=== PATIENT | male | born 1965 | race Caucasian/White ===

== ENCOUNTER 2021-04-21 20:00 | Outpatient (CLI) | payer MEDICARE, SELFPAY | END 2021-04-21 20:01 | disposition home or self-care (01) | LOC: SLEEP 04-22 08:40 | PROVIDERS: Family Provider Internal Medicine; Visit Provider Nurse Practitioner Family | DX: G47.33 Obstructive sleep apnea (adult) (pediatric) (principal) | CPT/HCPCS: 95810 ==

== ENCOUNTER 2022-11-08 06:00 | Outpatient (RCR) | payer MEDICARE, SELFPAY | END 2022-11-23 23:59 | disposition home or self-care (01) | LOC: SPT 06:00 | PROVIDERS: Visit Provider Internal Medicine | DX: E66.9 Obesity, unspecified (principal); M54.50 Low back pain, unspecified | CPT/HCPCS: 97113; 97162 ==

== ENCOUNTER 2022-11-24 06:00 | Outpatient (RCR) | payer MEDICARE, SELFPAY | END 2022-12-24 23:59 | disposition home or self-care (01) | LOC: SPT 06:00 | PROVIDERS: Visit Provider Internal Medicine | DX: M54.50 Low back pain, unspecified (principal); E66.9 Obesity, unspecified; J44.9 Chronic obstructive pulmonary disease, unspecified | CPT/HCPCS: 97113 ==

== ENCOUNTER 2022-12-25 01:00 | Outpatient (RCR) | payer MEDICARE, SELFPAY | END 2023-01-23 23:59 | disposition home or self-care (01) | LOC: SPT 01:00 | PROVIDERS: PCP Internal Medicine; Visit Provider Internal Medicine | DX: E66.9 Obesity, unspecified (principal); J44.9 Chronic obstructive pulmonary disease, unspecified; M54.50 Low back pain, unspecified | CPT/HCPCS: 97113 ==

== ENCOUNTER 2022-12-28 09:23 | Outpatient (CLI) | payer MEDICARE, SELFPAY ==
[2022-12-28 10:05] VITALS: PULSE 95; RESP 18; O2SAT 93
[2022-12-28] MEDS: albuterol 2.5 mg/3 mL Neb INHALATION (10:05)
[2022-12-28 10:10] VITALS: PULSE 89
== END 2022-12-28 09:24 | disposition home or self-care (01) ==
PROVIDERS: PCP Internal Medicine; Visit Provider Internal Medicine
DX: J44.9 Chronic obstructive pulmonary disease, unspecified (principal)
CPT/HCPCS: 94060; 94726; 94729; J7613

== ENCOUNTER 2024-06-05 18:04 | Inpatient (IN) | payer MEDICARE, SELFPAY ==
[2024-06-05] VITALS (12 sets, daily range): BP systolic 105–146; BP diastolic 65–87; PULSE 88–101; RESP 15–22; TEMP 36.5–36.7; O2SAT 88–98; BMI 47.9; BMI 48.2
--- NOTE | 2024-06-05 18:25 | ECG_ITS ---
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 Measurements Intervals [place] Rate: 99 P: 67 TN: 127 QRS: 92 QRSD: 142 T: -40 QT: 362 QTc: 466 Interpretive Statements SINUS RHYTHM RIGHT BUNDLE BRANCH BLOCK [120+ ms QRS DURATION, UPRIGHT V1, 40+ ms S IN I/aVL/V4/V5/V6] MODERATE T-WAVE ABNORMALITY, CONSIDER LATERAL ISCHEMIA [-0.1+ mV T-WAVE IN I/aVL/V5/V6].MODERATE T-WAVE ABNORMALITY, CONSIDER INFERIOR ISCHEMIA [-0.1+ mV T-WAVE IN II/aVF] Compared to ECG 04/27/2015 21:15:17 Right bundle-branch block now present T-wave abnormality now present.Possible ischemia now present Myocardial infarct finding no longer present Electronically Signed On 06-05-2024 21:40:12 CDT by Dell Patel M.D. [id number]
--- NOTE | 2024-06-05 18:27 | XRR_ITS ---
PROCEDURE INFORMATION: Exam: XR Chest Exam date and time: 06/05/2024 6:38 PM Age: 59 years old Clinical indication: Other: Weakness TECHNIQUE: Imaging protocol: Radiologic exam of the chest. Views: 1 view. COMPARISON: 1. CT chest w con* [id number] 05/02/2019 08:32 2. CR XR chest 2V* [id number] 11/01/2018 10:[address] chest wo con [id number] 11/07/2018 1:54 PM FINDINGS: Lungs: Left basilar linear atelectatic changes. No focal pulmonary consolidation. Multiple small noncalcified nodules scattered throughout both lungs similar to the comparison examinations. Pleural spaces: No pleural effusion or pneumothorax. Heart/Mediastinum: Normal in size. Diaphragm: Chronic asymmetric elevation of the left hemidiaphragm. Bones/joints: No acute fracture is identified. XR/XR chest 1V portable [id number] IMPRESSION: 1. Atelectatic changes at the left lung base. No focal pulmonary consolidation. 2. Multiple small noncalcified nodules throughout both lung bales, no significantly changed from comparison. CT scan of the chest may be helpful for further characterization if clinically indicated.
[2024-06-05 18:48] LABS: ABG PH Result 7.39 (7.35-7.45); Arterial Blood Gas Hematocrit 38.6 % (42-52); Base Excess ABG 20.4 mmol/L (-2.0-2.0); Blood Gas Allen Test Pos; Blood Gas Operator Identificat CAK; Blood Gas Sample Site Radial, left; Blood Gas Sample Type Arterial; Carboxyhemoglobin 1.4 %THgb (0.4-20.1); HCO3 ABG 49.8 mmol/L (22-26); HGB O2 Sat 92.5 % (95-100); Ionized Calcium Level - ABG 1.2 mmol/L (1.1-1.4); Methemoglobin 1.1 % (0.4-1.5); Oxygen Device NC; Oxygen Saturation ABG 94.9; PO2 ABG 70.3 mmHg (80.0-100.0); Potassium Level - ABG 4.3 mmol/L (3.5-5.0); Total Hemoglobin 12.6 g/dL (14-18)
[2024-06-05 18:49] LABS: ABG PCO2 82.4 mmHg (35-45)
--- NOTE | 2024-06-05 18:54 | ED_ITS ---
HPI - SOB/Dyspnea 2 General: Chief Complaint: Shortness of Breath/Dyspnea Stated Complaint: weakness Time Seen by Provider: 06/05/24 18:33 Source: patient Mode of arrival: ambulatory Limitations: no limitations History of Present Illness: HPI Narrative: 59-year-old male has a history of COPD s tates he was admitted to [facility] over 1 week ago for pneumonia. States he was released on Tuesday states initially it improved over the last 2 days had much more increase shortness of breath. He states he is continue to have a cough as well he is finished his antibiotics and steroids and sent home on. Patient here in triage is requiring 6 L of oxygen he is typically on 3 at home. He denies any chest pain. Associated symptoms: Deny abdominal pain, chest pain, fever(s), nausea or vomiting Related Data Allergies Allergy/AdvReac Type Severity Reaction Status Date / Time No Known Allergies Allergy Verified 06/05/24 18:32 Review of Systems 2 Const: Denies: fever(s), chills, body aches or change in appetite ENMT: Denies: throat pain or dental pain Card: Denies: chest pain Resp: Reports: dyspnea and non-productive cough GI: Denies: abdominal pain, nausea, vomiting or diarrhea Musc: Denies: neck pain or back pain Skin/Breast: Denies: rash Neuro: Denies: headache(s) Physical Exam 2 Const: COMMON NORMALS: patient oriented x3 GENERAL APPEARANCE: ill appearing HENMT: COMMON NORMALS: normocephalic and atraumatic HEAD & SCALP: n ormocephalic and atraumatic Neck/C-Spine: COMMON NORMALS: full ROM and supple Chest: COMMONS NORMALS: normal inspection of the chest Resp: COMMON NORMALS: No retractions EFFORT & INSPECTION: Yes respiratory distress AUSCULTATION: diminished lung sounds Cardio: COMMON NORMALS: regular rhythm and No murmurs present (Cardio) R ATE: tachycardic RHYTHM: regular rhythm GI: COMMON NORMALS: Normal to inspection, nondistended, normoactive bowel sounds present, Soft to palpation, non-tender and no masses PALPATION: Yes Soft to palpation Extremity: COMMON NORMALS: normal to inspection and full ROM Neuro: COMMON NORMALS: patient oriented x3, moves all extremities and no focal motor deficits Psych: COMMON NORMALS: mental status grossly normal, Normal thought process present and cooperative THOUGHT PROCESS: Normal thought process present Skin: COMMON NORMALS: no rashes or lesions noted and no wounds GENERAL SKIN EXAM: no rashes or lesions noted Course 2 Vital Signs: Vital signs: Vital Signs Temperature 98.0 F 06/05/24 18:24 Pulse Rate 97 06/05/24 20:52 Respiratory Rate 20 H 06/05/24 20:52 Blood Pressure 122/87 06/05/24 20:52 Pulse Oximetry 98 06/05/24 20:52 Oxygen Delivery Me thod BiPAP 06/05/24 20:52 Oxygen Flow Rate 3 06/05/24 19:15 Fraction of Inspir ed Oxygen 45 06/05/24 20:05 MDM - SOB/Dyspnea Medical Decision Making Patient presents for shortness of breath white count here is normal notes any large pneumonia on x-ray did give him a dose of antibiotics does have a long history of COPD he is hypercapnic here did place him on BiPAP his CO2 is improving. I did speak to the hospitalist will admit at this time. Lab Data 06/05/24 19:25 06/05/24 19:25 Labs/Radiology: Radiology Impressions Chest X-Ray 06/05/24 18:27 IMPRESSION: 1. Atelectatic changes at the left lung base. No focal pulmonary consolidation. 2. Multiple small noncalcified nodules throughout both lung bales, no significantly changed from comparison. CT scan of the chest may be helpful for further characterization if clinically indicated. Laboratory Results WBC 10.82 10^3/uL (3.29-11.43) 06/05/24 19: RBC 4.53 10^6/uL (3.85-5.65) 06/05/24 19:25 Hgb 13.00 g/dL (11.27-16.99) 06/05/24 19:25 Hct 43.9 % (37-53) 06/05/24 19: MCV 96.9 fl (82-101) 06/05/24 19: MCH 28.7 pg (27-33) 06/05/24 19: MCHC 29.6 g/dL (30-55) L 06/05/24 19:25 RDW 12.6 % (12.1-15.1) 06/05/24 19:25 Plt Count 264 10^3/cmm (157-399) 06/05/24 19:25 MPV 9.4 fL (7.4-10.4) 06/05/24 19:25 Neut % (Auto) 71.9 % 06/05/24 19:25 Lymph % (Auto) 15.5 % 06/05/24 19:25 Holt % (Auto) 7.2 % 06/05/24 19:25 Eos % (Auto) 4.4 % 06/05/24 19:25 Baso % (Auto) 0.4 % 06/05/24 19:25 Neut # (Auto) 7.77 10^3/uL (1.8-7.7) H 06/05/24 19:25 Lymph # (Auto) 1.7 10^3/uL (0.8-4.8) 06/05/24 19:25 Holt # (Auto) 0.8 10^3/uL (0.2-0.9) 06/05/24 19:25 Eos # (Auto) 0.5 10^3/uL (0.0-0.8) 06/05/24 19:25 Baso # (Auto) 0.0 10^3/uL (0.0-0.1) 06/05/24 19: Nucleated RBC % (auto) 0 % 06/05/24: Nucleated RBCs # 0.0 /100WBC 06/05/24 19:25 PT 13.50 SECONDS (12.1-14.9) 06/05/24 19: INR 1.00 (0.8-1.2) 06/05/24 19:25 Specimen Type Arterial 06/05/24 20:45 Sample Site Radial, right 06/05/24 20:45 ABG pH 7.44 (7.35-7.45) 06/05/24 20:45 ABG pCO2 70.6 mmHg (35-45) H* 06/05/24 20:45 ABG pO2 116.0 mmHg (80.0-100.0) H 06/05/24 20:45 ABG PO2/FiO2 Ratio 257 06/05/24 20:45 ABG HCO3 47.7 mmol/L (22-26) H 06/05/24 20:45 ABG O2 Saturation 94.9 06/05/24 18:37 ABG Base Excess 19.7 mmol/L (-2.0-2.0) H 06/05/24 20:45 Dae Test Pos 06/05/24 20:45 A-a O2 Gradient Not Reportable 06/05/24 18:37 Hematocrit 38.2 % (42-52) L 06/05/24 20:45 Hgb O2 Saturation 92.5 % (95-100) L 06/05/24 18:37 Carboxyhemoglobin 1.4 %THgb (0.4-20.1) 06/05/24 18:37 Methemoglobin 1.1 % (0.4-1.5) 06/05/24 18:37 Total Hemoglobin 12.6 g/dL (14-18) L 06/05/24 18:37 Sodium 137.0 mmol/L (131-143) 06/05/24 18:37 Potassium 4.3 mmol/L (3.5-5.0) 06/05/24 18:37 Glucose 137.0 mg/dL (70-115) H 06/05/24 18:37 Ionized Calcium 1.2 mmol/L (1.1-1.4) 06/05/24 18:37 O2 Delivery Device Bipap 06/05/24 20:45 O2 Liters/Min 6.0 % 06/05/24 18:37 FiO2 45.0 % 06/05/24 20:45 Swatch Maker ID [email or web address] 06/05/24 20:45 Sodium 138 mmol/L (136-145) 06/05/24 19:25 Potassium 4.9 mmol/L (3.5-5.1) 06/05/24 19:25 Chloride 88 mmol/L (98-107) L 06/05/24 19:25 Carbon Dioxide 45 mmol/L (22-29) H* 06/05/24 19:25 Anion Gap 9.9 (5-19) 06/05/24 19:25 Creatinine 0.5 mg/dL (0.7-1.2) L 06/05/24 19:25 GFR Calculation 169.6 mL/min (90-130) H 06/05/24 19:25 Glucose 134 mg/dL (65-115) H 06/05/24 19:25 Calcium 9.0 mg/dL (8.5-10.5) 06/05/24 19:25 Magnesium 2.2 mg/dL (1.7-2.3) 06/05/24 19:25 Total Bilirubin 0.4 mg/dL (0.15-1.2) 06/05/24 19:25 AST 22 U/L (0-40) 06/05/24 19:25 ALT 56 U/L (0-41) H 06/05/24 19:25 Alkaline Phosphatase 62 U/L (40-130) 06/05/24 19:25 Troponin T Baseline 46 ng/L (0-15) H 06/05/24 19:25 NT-Pro-B Natriuret Pep 247 pg/mL (0-125) H 06/05/24 19:25 Total Protein 6.8 g/dL (6.6-8.7) 06/05/24 19: Albumin 4.0 g/dL (3.5-5.2) 06/05/24 19:25 Globulin 2.8 g/dL (1.3-4.6) 06/05/24 19: TSH 3.52 uIU/mL (0.27-4.20) 06/05/24 19:25 Urine Color Yellow (Yellow) 06/05/24 19:35 Urine Appearance Clear (CLEAR) 06/05/24 19:35 Urine pH 8.5 (5-7) A 06/05/24 19:35 Ur Specific [place] 1.012 (1.005-1.030) 06/05/24 19:35 Urine Protein Negative (Negative) 06/05/24 19:35 Urine Glucose (UA) Negative (Normal) 06/05/24 19:35 Urine Ketones Negative (Negative) 06/05/24 19:35 Urine Blood Negative (Negative) 06/05/24 19:35 Urine Nitrate Negative (Negative) 06/05/24 19:35 Urine Bilirubin Negative (Negative) 06/05/24 19:35 Urine Urobilinogen 0.2 mg/dL (Negative) 06/05/24 19:35 Ur Leukocyte Esterase Negative (Negative) 06/05/24 19:35 Urine RBC 0-2 /hpf (0-2) 06/05/24 19:35 Urine WBC 0-5 /hpf (0-5) 06/05/24 19:35 Ur Squamous Epith Cells 0-5 /hpf (0-5) 06/05/24 19:35 Amorphous Sediment Not Reportable 06/05/24 19:35 Urine Bacteria None seen /hpf (NONE) 06/05/24 19:35 Hyaline Casts 0-4 /lpf H 06/05/24 19:35 All radiology interpretation(s) finalized by discharge Discharge Plan Discharge Patient Disposition: Admitted As Inpatient Clinical Impression: Acute exacerbation of chronic obstructive airways disease, Acute and chronic respiratory failure with hypercapnia Condition: Stable Referrals: Shaniqua Carey MD [Primary Care Provider] - Coding Level of Care Code ED Business Continuity Director for [facility]
[2024-06-05] MEDS: albuterol 2.5 mg/3 mL Neb INHALATION (19:15)
[2024-06-05 19:49] LABS: Basophils % 0.4 %; Eosinophils # 0.5 10^3/uL (0.0-0.8); Eosinophils % 4.4 %; Hematocrit 43.9 % (37-53); Lymphocytes # 1.7 10^3/uL (0.8-4.8); Lymphocytes % 15.5 %; Mean Corpuscular HGB Conc 29.6 g/dL (30-55); Mean Corpuscular Hemoglobin 28.7 pg (27-33); Mean Corpuscular Volume 96.9 fl (82-101); Mean Platelet Volume 9.4 fL (7.4-10.4); Monocytes # 0.8 10^3/uL (0.2-0.9); Monocytes % 7.2 %; Neutrophils # 7.77 10^3/uL (1.8-7.7); Neutrophils % 71.9 %; Nucleated Red Blood Cells % 0 %; Platelet Count 264 10^3/cmm (157-399); Red Blood Count 4.53 10^6/uL (3.85-5.65); Red Cell Distribution Width 12.6 % (12.1-15.1); White Blood Count 10.82 10^3/uL (3.29-11.43)
[2024-06-05] MEDS: levofloxacin-dextrose 5 % 750 MG/150 ML PREMIX 100 MG IV (20:03)
[2024-06-05 20:09] LABS: Troponin(5th) Baseline 46 ng/L (0-15)
[2024-06-05 20:14] LABS: Bilirubin Urine Negative (Negative); Blood Urine Negative (Negative); Glucose Urine UA Negative (Normal); Ketones Urine Negative (Negative); Leukocyte Esterase Urine Negative (Negative); Nitrate Urine Negative (Negative); Protein Urine Negative (Negative); Specific Gravity, Urine 1.012 (1.005-1.030); Urine Appearance Clear (CLEAR); Urine Color Yellow (Yellow); Urobilinogen Urine 0.2 mg/dL (Negative); pH Urine 8.5 (5-7)
[2024-06-05 20:19] LABS: Add Urine Microscopic? YES; Bacteria Urine None Seen /hpf; Hyaline Casts Urine 0-4 /lpf; RBC Urine 0-2 /hpf (0-2); Squamous Epithelial Cell Urine 0-5 /hpf (0-5); WBC Urine 0-5 /hpf (0-5)
--- NOTE | 2024-06-05 20:33 | ECG_ITS ---
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 Measurements Intervals [place] Rate: 95 P: 53 [place]: 136 QRS: 89 QRSD: 139 T: -19 QT: 396 QTc: 498 Interpretive Statements SINUS RHYTHM RIGHT BUNDLE BRANCH BLOCK [120+ ms QRS DURATION, UPRIGHT V1, 40+ ms S IN I/aVL/V4/V5/V6] MODERATE T-WAVE ABNORMALITY, CONSIDER LATERAL ISCHEMIA [-0.1+ mV T-WAVE IN I/aVL/V5/V6] MODERATE T-WAVE ABNORMALITY, CONSIDER INFERIOR ISCHEMIA [-0.1+ mV T-WAVE IN II/aVF] Compared to ECG 06/05/2024 18:25:09 No significant changes Electronically Signed On 06-05-2024 21:57:44 CDT by Dell Patel M.D. [id number]
[2024-06-05 20:35] LABS: Alanine Aminotransferase 56 U/L (0-41); Alkaline Phosphatase 62 U/L (40-130); Anion Gap 9.9 (5-19); Aspartate Amino Transferase 22 U/L (0-40); Chloride 88 mmol/L (98-107); Creatinine Clr Calc Pharmacy 239.0987; Globulin 2.8 g/dL (1.3-4.6); Glomerular Filtration Rate 169.6 mL/min (90-130); Glucose 134 mg/dL (65-115); Magnesium 2.2 mg/dL (1.7-2.3); NT Pro B Type Natriuretic Pept 247 pg/mL (0-125); Potassium 4.9 mmol/L (3.5-5.1); Sodium 138 mmol/L (136-145); Thyroid Stimulating Hormone 3.52 uIU/mL (0.27-4.20); Total Bilirubin 0.4 mg/dL (0.15-1.2); Total Protein 6.8 g/dL (6.6-8.7)
[2024-06-05 20:50] LABS: Carbon Dioxide 45 mmol/L (22-29)
[2024-06-05 20:56] LABS: ABG PCO2 70.6 mmHg (35-45); ABG PH Result 7.44 (7.35-7.45); Arterial Blood Gas Hematocrit 38.2 % (42-52); Base Excess ABG 19.7 mmol/L (-2.0-2.0); Blood Gas Allen Test Pos; Blood Gas Sample Site Radial, right; Blood Gas Sample Type Arterial; HCO3 ABG 47.7 mmol/L (22-26); Oxygen Device BIPAP; PO2 FiO2 Ratio Arterial Blood 257
[2024-06-05 21:06] LABS: Blood Urea Nitrogen 11 mg/dL (8-23); Osmolality Calculated 287 mOsm/kg (285-295)
[2024-06-05 21:13] LABS: Glucose Point of Care 257 mg/dL (70-110)
--- NOTE | 2024-06-05 21:21 | USCV_ITS ---
Walter Medina Age: 59 Gender: M : 1965 Exam Date: 06/05/2024 22:46 Ordering Phys: Hilton Ortiz MD Technologist: MARY KATE Exam Location: [facility] [place] Indication: SOB, history of asthma, COPD, recent pneumonia, morbid obesity, O2 dependent at 3L BP: 122 / 87 HR: 87 Rhythm: Sinus Technical Quality: Adequate with [employer] MEASUREMENTS (Male / Female) Normal Values 2D ECHO LV Diastolic Diameter PLAX 4.5 cm 4.2 - 5.9 / 3.9 - 5.3 cm IVS Diastolic Thickness 1.7 cm 0.6 - 1.0 / 0.6 - 0.9 cm IVS Systolic Thickness 2.4 cm LVPW Diastolic Thickness 1.4 cm 0.6 - 1.0 / 0.6 - 0.9 cm LVPW Systolic Thickness 1.6 cm LVOT Diameter 2.3 cm LV Ejection Fraction 2D Teich 66.7 % LV Ejection Fraction MOD 4C 68.6 % LV Ejection Fraction MOD 2C 56.2 % LV Ejection Fraction 2C AL 55.5 % LA Diameter 3.9 cm Aorta at Sinotubular Diameter 3.2 cm IVC Diameter 1.8 cm M-MODE LA Ao Ratio MM 1.2 AV Cusp Separation MM 2.1 cm DOPPLER AV Peak Velocity 156.3 cm/s LVOT Peak Velocity 76.0 cm/s AV Area Cont Eq vti 2.9 cm squared AV Area Cont Eq pk 2.0 cm squared MV Peak Velocity 92.0 cm/s MV Area PHT 10.6 cm squared Mitral E to A Ratio 1.1 TV Peak E Velocity 42.0 cm/s PV Peak Velocity 80.0 cm/s FINDINGS Left Ventricle Normal left ventricular size, systolic function and wall thickness, with no regional wall motion abnormalities. Left ventricular ejection fraction is estimated at 60 %. Mildly increased left ventricular filling pressure. Right Ventricle The right ventricle is normal in size and function. Right Atrium Moderately increased right atrial size. Left Atrium The left atrium is normal in size. Mitral Valve Structurally normal mitral valve without significant stenosis or prolapse. There is no mitral regurgitation. Aortic Valve Structurally normal aortic valve without significant sclerosis or stenosis. There is trace aortic regurgitation. Tricuspid Valve Structurally normal tricuspid valve without significant stenosis, trace regurgitation. Pulmonary artery systolic pressure is normal. Pulmonic Valve Mild pulmonary valve regurgitation. Pericardium Normal pericardium without effusion. Aorta Normal ascending aorta dimension. IVC The inferior vena cava appears normal. CONCLUSIONS Normal left ventricular size, systolic function and wall thickness, with no regional wall motion abnormalities. Left ventricular ejection fraction is estimated at 60 %. Mildly increased left ventricular filling pressure. Mild pulmonary valve regurgitation. There is no other significant valvular abnormality There is no pericardial effusion. Right atrial pressure is around 5 mm of mercury. Blanka Melton MD (Electronically Signed) Final Date: 06 June 2024 12:41 S
--- NOTE | 2024-06-05 21:22 | PM.HP ---
Providers/Chief Complaint Primary Care Provider: Shaniqua Carey MD Chief Complaint: weakness History of Present Illness Walter Medina is a 59 year old male with a past medical history of morbid obesity, COPD, previous smoker, chronically on 3 L, recently admitted at [facility] in [place] for acute hypoxic respiratory failure secondary pneumonia, has completed steroids and antibiotics who presents back to [facility] due to complaints of shortness of breath, fatigue, malaise, and a fall. Patient reports that he was hospitalized at [facility], for pneumonia, he overall clinically improved, he was discharged on antibiotics and steroids and inhaler therapy. He does tell me that he felt better at some point, but continued to have episodes of shortness of breath, fatigue, malaise, nonproductive cough, no fevers, no chills, no chest pain. He does tell me that he was short of breath today, and he had a mechanical fall, falling backwards, hitting his right shoulder, his left hand, denies any head trauma, no loss of consciousness Review of Systems Const: Reports: fatigue and malaise Card: Denies: chest pain Resp: Reports: dyspnea and non-productive cough Neuro: Denies: headache(s) or weakness in extremities Medications/Allergies Allergies Allergy/AdvReac Type Severity Reaction Status Date / Time No Known Allergies Allergy Verified 06/05/24 18:32 PFSH Acute PFSH: Medical History (Updated 06/05/24 @ 21:28 by Hilton Ortiz MD) History of type 2 diabetes mellitus History of morbid obesity History of COPD Surgical History (Updated 06/05/24 @ 21:26 by Hilton Ortiz MD) History of appendectomy Family History Mother Diabetes Social History (Updated 06/05/24 @ 21:27 by Hilton Ortiz MD) Smoking and tobacco/nicotine status: former use of tobacco/nicotine Alcohol intake: never Substance/Drug Use: never Vitals/I&O/Wt Last Vital Signs Temp 98.0 F 06/05/24 18:24 Pulse 97 06/05/24 20:52 Resp 20 H 06/05/24 20:52 BP 122/87 06/05/24 20:52 Pulse Ox 98 06/05/24 20:52 O2 Del Method BiPAP 06/05/24 20:52 O2 Flow Rate 3 06/05/24 19:15 FiO2 45 06/05/24 20:05 Weight last 48 hrs Weight 156.036 kg Physical Exam Const: COMMON NORMALS: no acute distress and patient oriented x3 HENMT: COMMON NORMALS: normocephalic HEAD & SCALP: normocephalic Eye: COMMON NORMALS: Equal, round and reactive pupils present and EOMs intact bilaterally Neck/C-Spine: COMMON NORMALS: no JVD Resp: COMMON NORMALS: normal respiratory effort, No retractions and No use of accessory muscles AUSCULTATION: wheezes Cardio: COMMON NORMALS: no JVD, regular rate, regular rhythm, S1 normal heart sound present and S2 normal heart sound present RATE: regular rate RHYTHM: regular rhythm HEART SOUNDS: S1 normal heart sound present and S2 normal heart sound present GI: COMMON NORMALS: Normal to inspection, nondistended, normoactive bowel sounds present, Soft to palpation and non-tender PALPATION: Yes Soft to palpation OTHER: Obese abdomen Extremity: COMMON NORMALS: no calf tenderness and no pedal edema Neuro: COMMON NORMALS: patient oriented x3, CN's II-XII intact bilaterally and moves all extremities Psych: COMMON NORMALS: mental status grossly normal Data 06/05/24 19:25 06/05/24 19:25 Micro: Microbiology 06/05/24 19:25 Blood Culture - Preliminary Blood SPECIMEN COLLECTED 06/05/24 19:18 Blood Culture - Preliminary Blood SPECIMEN COLLECTED A&P Assessment and plan (1) Acute respiratory failure with hypoxia and hypercapnia: (2) Fall: (3) Pneumonia: Plan Acute hypoxic hypercarbic respiratory failure -With history of sleep apnea, on CPAP -Morbid obesity -Recent hospitalization for pneumonia, COPD, discharged on 3 L, requiring up to 5 L, now on BiPAP ? Now with pneumonia, hypercarbic respiratory failure, hypoxia Plan -Respiratory viral panel -Sputum cultures -D-dimer -Pro-Rufus, CRP -Cardiac echo -Continue Levaquin -Solu-Medrol 125 mg once followed by Solu-Medrol 40 mg IV push every 8 hours ? Budesonide ? DuoNeb every 4 hours ? Continued BiPAP scheduled during the night, as needed during the day ? Have ordered an overnight pulse ox for tomorrow, to see if patient can qualify for BiPAP Pneumonia ? As above Fall ? CT of the head ? Right shoulder pain ? Left hand pain Type 2 diabetes mellitus, low-dose sliding scale Reviewed records from outside hospital, patient had enlarged mediastinal lymph nodes, enlarged subcarinal lymph nodes largest measuring 2 x 4.2 cm, right paratracheal nodes measuring 1.5 cm, this will need to be followed up by pulmonary as outpatient He was also found to have 7 mm left upper lobe nodule, multiple calcified and noncalcified left lower lobe pulmonary nodules measuring up to 9 mm, multiple 5 mm right lower lobe and middle lobe pulmonary nodules She will need to follow-up with pulmonary as outpatient Full code ? Lovenox for DVT prophylaxis Attestations Medical Necessity Statement*: Patient requires hospitalization, inpatient, greater than 2 midnights for acute hypoxic hypercarbic respiratory failure Diagnoses Acute respiratory failure with hypoxia and hypercapnia J96.01; J96.02 Fall W19.XXXA Pneumonia J18.9
--- NOTE | 2024-06-05 21:25 | XRR_ITS ---
PROCEDURE INFORMATION: Exam: XR Left Hand Exam date and time: 06/05/2024 9:38 PM Age: 59 years old Clinical indication: Injury or trauma; Fall; Blunt trauma (contusions or hematomas); Hand; Left TECHNIQUE: Imaging protocol: Radiologic exam of the left hand. Views: 3 or more views. COMPARISON: No relevant prior studies available. FINDINGS: Bones/joints: The alignment of the joints is anatomic and the joint spaces are maintained. There is no evidence of acute fracture. Soft tissues: There is soft tissue swelling. No radiopaque foreign body is identified. XR/XR hand LT 2V [id number] IMPRESSION: 1. Left hand soft tissue swelling. 2. No acute fracture or dislocation.
--- NOTE | 2024-06-05 21:25 | CTR_ITS ---
PROCEDURE INFORMATION: Exam: CT Head Without Contrast Exam date and time: 06/05/2024 9:43 PM Age: 59 years old Clinical indication: Injury or trauma; Other: Fall, weakness, SOB TECHNIQUE: Imaging protocol: Computed tomography of the head without contrast. Radiation optimization: All CT scans at this facility use at least one of these dose optimization techniques: automated exposure control; mA and/or kV adjustment per patient size (includes targeted exams where dose is matched to clinical indication); or iterative reconstruction. COMPARISON: No relevant prior studies available. RADIATION DOSE METRICS: Total DLP (mGy-cm): 1110 FINDINGS: Brain: There is no evidence of intracranial hemorrhage. No mass effect or midline shift. No territorial edema. There are moderate confluent periventricular hypodensities consistent with chronic microischemic changes of white matter. Cerebral ventricles: The ventricles and sulci are appropriate for the patient's age. Paranasal sinuses: There are no air-fluid levels. Mastoid air cells: The visualized mastoid air cells are well aerated. Auditory system: In the left external auditory canal, there is a 10 x 4 mm soft tissue density. There is debris/cerumen in the right external auditory canal. Bones: Unremarkable. No acute fracture. Soft tissues: Unremarkable. CT/CT head wo con* [id number] IMPRESSION: 1. No acute intracranial findings. 2. Moderate cerebral small-vessel disease. 3. A 10 x 4 mm soft tissue density in the left external auditory canal. Consider cerumen, foreign body. Neoplasm may be considered less likely.
--- NOTE | 2024-06-05 21:25 | XRR_ITS ---
PROCEDURE INFORMATION: Exam: XR Right Shoulder Exam date and time: 06/05/2024 9:40 PM Age: 59 years old Clinical indication: Injury or trauma; Fall; Blunt trauma (contusions or hematomas); Shoulder; Right TECHNIQUE: Imaging protocol: Radiologic exam of the right shoulder. Views: 2 or more views. COMPARISON: CR (CHEST, ) 07/04/2024 18:38 FINDINGS: Bones/joints: There is no evidence of fracture or dislocation. The acromioclavicular joint is normal. The subacromial joint space is well-preserved. The glenohumeral joint is normal. No joint effusion is present. Soft tissues: There are no radiopaque foreign bodies in the visualized soft tissues. There are no soft tissue calcifications. XR/XR shoulder RT min 2V* [id number] IMPRESSION: Unremarkable radiographic appearance of the shoulder.
[2024-06-05 21:53] LABS: D Dimer 0.47 ug/mLFEU (0-0.59)
[2024-06-05 21:57] LABS: Troponin 5 2HR 48.55 ng/L (0-15); Troponin 5 2HR Delta 2.55 ABS# (0-10)
[2024-06-05 21:58] LABS: C Reactive Protein 5.4 mg/L (0.0-4.9)
[2024-06-05 22:05] LABS: Procalcitonin 0.07 ng/mL (0-0.5)
[2024-06-05] MEDS: enoxaparin 40 mg/0.4 mL Syringe SUBCUT (22:24)
[2024-06-05] MEDS: pantoprazole 40 mg SDV IVP (22:25)
[2024-06-05] MEDS: methylPREDNISolone sod succ 125 mg/2 mL INJ IVP (22:25)
[2024-06-05 23:17] LABS: Estmated Average Glucose 146; Hemoglobin A1C 6.7 % (4.0-6.0)
[2024-06-05 23:26] LABS: Covid PCR NEGATIVE (Negative); Influenza A NEGATIVE (Negative); Influenza B NEGATIVE (Negative); Respiratory Syncytial Virus Ce NEGATIVE (Negative)
[2024-06-05] MEDS: benzonatate 100 mg Capsule PO (23:35)
[2024-06-06] VITALS (19 sets, daily range): BP systolic 109–144; BP diastolic 64–82; PULSE 81–115; RESP 16–26; TEMP 36.3–36.8; O2SAT 90–95
--- NOTE | 2024-06-06 00:33 | ECG_ITS ---
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1965 Requested By: Lili Garcia Order Number: [id number] Melody MD: FAWN TUTTLE Measurements Intervals [place] Rate: 101 P: 41 IA: 108 QRS: 101 QRSD: 145 T: -7 QT: 366 QTc: 475 Interpretive Statements SINUS TACHYCARDIA WITH SHORT IA INTERVAL RIGHT AXIS DEVIATION [QRS AXIS > 100] RIGHT BUNDLE BRANCH BLOCK [120+ ms QRS DURATION, UPRIGHT V1, 40+ ms S IN I/aVL/V4/V5/V6] Compared to ECG 06/05/2024 20:33:12 Short IA interval now present Right-axis deviation now present Sinus rhythm no longer present T-wave abnormality no longer present Possible ischemia no longer present Electronically Signed On 06-07-2024 12:02:34 CDT by FAWN TUTTLE [id number]
[2024-06-06 00:46] LABS: Troponin 5 6HR 50.41 ng/L (0-15); Troponin 5 6HR Delta 4.41 ng/L (0-12)
[2024-06-06 05:07] LABS: Basophils % 0.2 %; Eosinophils % 0.1 %; Hematocrit 41.4 % (37-53); Lymphocytes # 0.6 10^3/uL (0.8-4.8); Lymphocytes % 5.9 %; Mean Corpuscular Hemoglobin 28.3 pg (27-33); Mean Corpuscular Volume 94.5 fl (82-101); Mean Platelet Volume 9.3 fL (7.4-10.4); Monocytes # 0.1 10^3/uL (0.2-0.9); Monocytes % 0.7 %; Neutrophils # 10.06 10^3/uL (1.8-7.7); Neutrophils % 92.5 %; Nucleated Red Blood Cells % 0 %; Platelet Count 246 10^3/cmm (157-399); Red Blood Count 4.38 10^6/uL (3.85-5.65); Red Cell Distribution Width 12.4 % (12.1-15.1); White Blood Count 10.88 10^3/uL (3.29-11.43)
[2024-06-06 05:32] LABS: Anion Gap 9.7 (5-19); Blood Urea Nitrogen 12 mg/dL (8-23); Calcium 8.8 mg/dL (8.5-10.5); Chloride 89 mmol/L (98-107); Creatinine Clr Calc Pharmacy 198.5096; Glomerular Filtration Rate 137.4 mL/min (90-130); Glucose 332 mg/dL (65-115); Osmolality Calculated 293 mOsm/kg (285-295); Potassium 4.7 mmol/L (3.5-5.1); Sodium 135 mmol/L (136-145)
[2024-06-06 05:55] LABS: Carbon Dioxide 41 mmol/L (22-29)
[2024-06-06 06:21] LABS: Glucose Point of Care 268 mg/dL (70-110)
[2024-06-06] MEDS: perflutren protein-a microsphr 0.22 mg/mL SDV 3 mL IV (08:28)
[2024-06-06] MEDS: budesonide 0.5 mg/2 mL Neb INHALATION ×2 (08:28→19:58)
[2024-06-06] MEDS: ipratropium-albuterol 3 mL Neb INHALATION ×4 (08:28→19:58)
[2024-06-06] MEDS: insulin lispro 100 unit/1 mL SUBCUT ×3 (08:40→17:10)
[2024-06-06] MEDS: methylPREDNISolone sod succ 40 mg/mL INJ IVP ×2 (08:41→17:10)
--- NOTE | 2024-06-06 08:50 | PC.CHAP ---
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 head still operator visit [] Patient/Family/Request visit [] Outpatient visit [] Follow-up visit [] Physician referral [] Code/Alert [x] Routine visit [] Staff referral [] Actively dying [] Patient sleeping [] Family support [] [] Out of room [] Palliative care [] [] Receiving care in room [] Pre-surgical visit [] Trauma [] Long length of stay [] ICU visit [] Other: Relational/Emotional Strength [x] Patient feels connected with others/family/visitors/staff [] Distress [] Loneliness/isolation [] Abandonment Spirituality of Patient [x] Person of [place] [x] Attends [employer] of their [place] [x] Believes in Prayer [x] Reads Bible or Christian materials [] There are Spiritual issues to be addressed Grocery Buyer Interventions [x] Prayer [x] Active listening [] Non-anxious presence [x] Spiritual/emotional support [] Crisis/trauma care [] Spiritual counseling [] Bereavement support [] Provided bereavement packet [] Provided Bible/devotional materials [] Provided toy/stuffed animal, coloring book to patient or family member [] Provided Communion [] Anointing/[place] [] Salvation [x] Completed spiritual assessment [] Other: Impact on Illness or Injury [] Angry [] Fearful [] Anxious [] Often cries [] Exhaustion [] Unable to work [] Unable to attend nondenominational [] Unable to walk/stand [] Unable to read [] Unable to drive [] Unable to eat/drink [] Unable to sleep [] Unable to be with family [] Patient intubated [] Other: Summary Time spent with patient 10 min
[2024-06-06 11:34] LABS: Glucose Point of Care 462 mg/dL (70-110)
[2024-06-06] MEDS: benzonatate 100 mg Capsule PO ×2 (15:10→22:50)
[2024-06-06 16:20] LABS: Glucose Point of Care 267 mg/dL (70-110)
[2024-06-06 17:00] LABS: Bacillus cereus group Not Detected (NOT DETECT); Bacillus subtillis group Not Detected (NOT DETECT); Corynebacterium Not Detected (NOT DETECT); Cutibacterium acnes (P.acnes) Not Detected (NOT DETECT); Enterococcus Not Detected (NOT DETECT); Enterococcus faecalis Not Detected (NOT DETECT); Enterococcus faecium Not Detected (NOT DETECT); Lactobacillus species Not Detected (NOT DETECT); Listeria Not Detected (NOT DETECT); Listeria monocytogenes Not Detected (NOT DETECT); Micrococcus Not Detected (NOT DETECT); Pan Candida Not Detected (NOT DETECT); Pan Gram-Negative Not Detected (NOT DETECT); Staphylococcus epidermidis Not Detected (NOT DETECT); Staphylococcus lugdunensis Not Detected (NOT DETECT); Staphylococcus species Not Detected (NOT DETECT); Streptococcus agalactiae Not Detected (NOT DETECT); Streptococcus anginosus group Not Detected (NOT DETECT); Streptococcus pneumoniae Not Detected (NOT DETECT); Streptococcus pyogenes Not Detected (NOT DETECT); Streptococcus species Not Detected (NOT DETECT)
--- NOTE | 2024-06-06 18:51 | P.PN_ITS ---
Subjective 2 Subjective: He feels that he is improving in terms of his breathing. At home normally on 3 L. He is having productive cough. Vitals/I&O/Wt Last Vital Signs Temp 97.8 F 06/06/24 16:00 Pulse 105 H 06/06/24 16:33 Resp 19 H 06/06/24 16:22 BP 130/79 06/06/24 16:00 Pulse Ox 93 06/06/24 16:22 O2 Del Method Nasal Cannula 06/06/24 16:22 O2 Flow Rate 3 06/06/24 16:22 FiO2 45 06/06/24 04:40 06/06/24 06/06/24 06/06/24 06:59 14:59 22:59 Intake Total 880 / 1030 840 / 840 480 / 1320 Output Total 600 / 600 650 / 650 400 / 1050 Balance 280 / 430 190 / 190 80 / 270 Weight last 48 hrs Weight 155.038 kg Weight 157 kg Weight 156.036 kg Physical Exam 2 Const: COMMON NORMALS: patient oriented x3 and alert GENERAL APPEARANCE: c ooperative NUTRITIONAL APPEARANCE: obese morbidly obese O RIENTATION/CONSCIOUSNESS: Yes awake HENMT: COMMON NORMALS: oropharynx normal Neck/C-Spine: COMMON NORMALS: no JVD Resp: COMMON NORMALS: normal respiratory effort AUSCULTATION: diminished lung sounds (Mildly diminished) Cardio: COMMON NORMALS: no JVD, regular rhythm, S1 normal heart sound present, S2 normal heart sound present and No murmurs present (Cardio) RHYTHM: regular rhythm HEART SOUNDS: S1 normal heart sound present and S2 normal heart sound present GI: COMMON NORMALS: Normal to inspection, nondistended, normoactive bowel sounds present, Soft to palpation and non-tender PALPATION: Yes Soft to palpation Extremity: COMMON NORMALS: no joint enlargement and no pedal edema Neuro: COMMON NORMALS: patient oriented x3 and moves all extremities S ENSORIUM/ORIENTATION: Yes alert Skin: COMMON NORMALS: no rashes or lesions noted GENERAL SKIN EXAM: no rashes or lesions noted Data 06/06/24 04:36 06/06/24 04:36 Micro: Microbiology 06/05/24 19:25 Blood Culture - Preliminary Blood SPECIMEN COLLECTED 06/05/24 22:35 Gram Stain - Final Sputum - Expectorated Sputum Sputum Culture - Preliminary 06/05/24 19:18 Blood Culture - Preliminary Blood SPECIMEN COLLECTED A&P Assessment and plan (1) Acute respiratory failure with hypoxia and hypercapnia: He feels he is overall improving in terms of his respiratory function. Reviewed vitals, CBC, D-dimer, coronavirus PCR viral panel, influenza, RSV. He is afebrile, without leukocytosis. Chest x-ray reviewed, discussed with him noted atelectasis. Discussed with him and requested incentive spirometer. Decreased oxygen flow while in the room during the visit with him, down to 4 L, still saturating 91%. Continue to further decrease. Continue to treat COPD exacerbation. Also had recent pneumonia. Suspect less likely current pneumonia. But with recurrent hypercapnia. Discussed with respiratory therapy. Continue to decrease oxygen support as tolerating, if coming to baseline tonight proceed with overnight pulse oximetry. He has home CPAP but that is an adequate to treat his condition due to recurrent severe hypercapnia with COPD, possibly component of OHS needs BiPAP. Discussed with case management specialist. Discussed with him target oxygen saturation 88-92%, avoid hyperoxia at home. Continue Solu-Medrol, monitor for risk of hyperglycemia, hypertension, gastritis, encephalopathy with IV steroid. Continue breathing treatments. Continue Levaquin. (2) Fall: (3) Pneumonia: Plan Incidentally noted 10 x 4 mm soft tissue density in the left external auditory canal on CT of the head. Cerumen versus foreign body versus neoplasm (less likely). Pneumonia ? As above Fall ? CT of the head reviewed ? Right shoulder pain ? Left hand pain Type 2 diabetes mellitus, low-dose sliding scale Reviewed records from outside hospital, patient had enlarged mediastinal lymph nodes, enlarged subcarinal lymph nodes largest measuring 2 x 4.2 cm, right paratracheal nodes measuring 1.5 cm, this will need to be followed up by pulmonary as outpatient He was also found to have 7 mm left upper lobe nodule, multiple calcified and noncalcified left lower lobe pulmonary nodules measuring up to 9 mm, multiple 5 mm right lower lobe and middle lobe pulmonary nodules She will need to follow-up with pulmonary as outpatient Full code ? Lovenox for DVT prophylaxis Attestations 2 Medical Necessity Statement*: Continue admission for assessment management of respiratory failure with hypoxia, hypercapnia, COPD exacerbation with recent pneumonia. and High MDM includes amount and/or complexity of data reviewed/ordered [ resulted lab(s)/test(s), ordered lab(s)/test(s) and other healthcare professional discussion] and described risk of complication, morbidity or mortality of management as documented Diagnoses Acute respiratory failure with hypoxia and hypercapnia J96.01; J96.02 Fall W19.XXXA Pneumonia J18.9
--- NOTE | 2024-06-06 20:04 | PC.RESP ---
[place] [address]. Patient on baseline 3lpm NC at this time while sitting in bed.
--- NOTE | 2024-06-06 20:10 | PC.RESP ---
Patient SpO2 dropped below 88% for 5 minutes, patient placed on bipap at 2007.
[2024-06-06 20:24] LABS: Glucose Point of Care 396 mg/dL (70-110)
[2024-06-06] MEDS: insulin glargine 100 units/1 mL 10 UNIT SUBCUT (21:15)
[2024-06-06] MEDS: pantoprazole 40 mg SDV IVP (21:15)
[2024-06-06] MEDS: enoxaparin 40 mg/0.4 mL Syringe SUBCUT (21:15)
[2024-06-06] MEDS: levofloxacin-dextrose 5 % 750 MG/150 ML PREMIX 100 MG IV (21:16)
[2024-06-07] VITALS (8 sets, daily range): BP systolic 121–124; BP diastolic 73–77; PULSE 83–102; RESP 16–21; TEMP 36.4–36.8; O2SAT 92–96
[2024-06-07] MEDS: methylPREDNISolone sod succ 40 mg/mL INJ IVP ×2 (00:38→08:59)
[2024-06-07 04:51] LABS: Basophils % 0.1 %; Hematocrit 39.1 % (37-53); Lymphocytes # 0.7 10^3/uL (0.8-4.8); Lymphocytes % 5.9 %; Mean Corpuscular HGB Conc 30.4 g/dL (30-55); Mean Corpuscular Hemoglobin 28.4 pg (27-33); Mean Corpuscular Volume 93.3 fl (82-101); Mean Platelet Volume 9.6 fL (7.4-10.4); Monocytes # 0.3 10^3/uL (0.2-0.9); Monocytes % 2.7 %; Neutrophils # 11.14 10^3/uL (1.8-7.7); Neutrophils % 90.7 %; Nucleated Red Blood Cells % 0 %; Platelet Count 261 10^3/cmm (157-399); Red Blood Count 4.19 10^6/uL (3.85-5.65); Red Cell Distribution Width 12.6 % (12.1-15.1); White Blood Count 12.27 10^3/uL (3.29-11.43)
[2024-06-07 05:09] LABS: Alanine Aminotransferase 37 U/L (0-41); Albumin Level 3.6 g/dL (3.5-5.2); Alkaline Phosphatase 58 U/L (40-130); Anion Gap 8.9 (5-19); Aspartate Amino Transferase 17 U/L (0-40); Blood Urea Nitrogen 17 mg/dL (8-23); Calcium 8.4 mg/dL (8.5-10.5); Carbon Dioxide 40 mmol/L (22-29); Chloride 92 mmol/L (98-107); Creatinine Clr Calc Pharmacy 170.1511; Glucose 370 mg/dL (65-115); Osmolality Calculated 299 mOsm/kg (285-295); Potassium 4.9 mmol/L (3.5-5.1); Sodium 136 mmol/L (136-145); Total Bilirubin 0.3 mg/dL (0.15-1.2); Total Protein 6.6 g/dL (6.6-8.7)
[2024-06-07 06:35] LABS: Glucose Point of Care 334 mg/dL (70-110)
[2024-06-07] MEDS: budesonide 0.5 mg/2 mL Neb INHALATION (07:22)
[2024-06-07] MEDS: ipratropium-albuterol 3 mL Neb INHALATION ×2 (07:22→11:20)
[2024-06-07] MEDS: insulin lispro 100 unit/1 mL SUBCUT (08:59)
[2024-06-07 11:21] LABS: Glucose Point of Care 385 mg/dL (70-110)
--- NOTE | 2024-06-07 15:36 | PM.DCS ---
Discharge Providers Date of Admission: 06/05/24 20:58 Date of Discharge: June 07, 2024 Attending Provider at Admission: Hilton Ortiz MD Attending Provider at Discharge: Colton Arvizu Primary Care Provider: Shaniqua Carey MD Diagnoses at Discharge Discharge Diagnosis (1) Acute respiratory failure with hypoxia and hypercapnia: Status: Acute (2) Fall: Status: Acute (3) Pneumonia: Status: Acute Reason for Visit Reason for Visit: weakness Brief History: Walter Medina is a 59 year old male with a past medical history of morbid obesity, COPD, previous smoker, chronically on 3 L, recently admitted at [facility] in [place] for acute hypoxic respiratory failure secondary pneumonia, has completed steroids and antibiotics who presents back to [facility] due to complaints of shortness of breath, fatigue, malaise, and a fall. Patient reports that he was hospitalized at [facility], for pneumonia, he overall clinically improved, he was discharged on antibiotics and steroids and inhaler therapy. He does tell me that he felt better at some point, but continued to have episodes of shortness of breath, fatigue, malaise, nonproductive cough, no fevers, no chills, no chest pain. He does tell me that he was short of breath today, and he had a mechanical fall, falling backwards, hitting his right shoulder, his left hand, denies any head trauma, no loss of consciousness. Hospital Course Hospital Course He was admitted and treated for COPD exacerbation, initial suspicion of pneumonia, treated with Levaquin, Solu-Medrol, DuoNebs, oxygen support, BiPAP support. Hypercarbia and respiratory failure improved. His oxygenation gradually improved, weaned down from 6 L to his baseline 3 L. COPD exacerbation with pneumonia less likely, afebrile, no leukocytosis. Was able to undergo overnight pulse oximetry. Showing overnight desaturation. Requiring BiPAP due to inadequacy of CPAP, CO2 retention, in addition to sleep apnea. Also possibly OHS. Feeling much better today, feeling ready to discharge. Will complete course of prednisone, Levaquin. BiPAP is requested although will take some time to obtain authorization. As a backup plan if authorization is taking a while, he has a friend who can land him BiPAP for short time that he could use in the intervening time if he is able to obtain new hoses and change settings for which he will reach out to [facility] until he can be set up with his own machine. Discussed with him strategies to reduce chances of hypercapnia. He will continue to monitor oxygenation at home, avoid hyperoxia, target O2 saturation 88-92% at rest. Increasing oxygen if needed for exertion. Please follow-up regarding respiratory failure, reassess after COPD exacerbation, recent pneumonia. Visit with him regarding assistance with weight loss options. Continue follow-up regarding diabetes and other chronic conditions. I am also requesting for him to follow-up with pulmonary as outpatient due to COPD, hypercapnia, possible OHS, as well as For previously noted, currently unchanged lung nodules. Of note also incidentally seen 10 x 4 mm soft tissue density in the left external auditory canal, he does have quite a bit of cerumen in that ear, is going to try some Debrox, please reassess for clearance and absence of any concerning mass. Physical Exam Narrative: Sitting up in bed. Accompanied by his . Const: COMMON NORMALS: patient oriented x3 and alert GENERAL APPEARANCE: cooperative NUTRITIONAL APPEARANCE: obese morbidly obese ORIENTATION/CONSCIOUSNESS: Yes awake HENMT: COMMON NORMALS: oropharynx normal Neck/C-Spine: COMMON NORMALS: no JVD Resp: COMMON NORMALS: normal respiratory effort and clear to auscultation bilaterally AUSCULTATION: clear to auscultation bilaterally Cardio: COMMON NORMALS: no JVD, regular rhythm, S1 normal heart sound present, S2 normal heart sound present and No murmurs present (Cardio) RHYTHM: regular rhythm HEART SOUNDS: S1 normal heart sound present and S2 normal heart sound present GI: COMMON NORMALS: Normal to inspection, nondistended, normoactive bowel sounds present, Soft to palpation and non-tender PALPATION: Yes Soft to palpation Extremity: COMMON NORMALS: no joint enlargement and no pedal edema Neuro: COMMON NORMALS: patient oriented x3 and moves all extremities SENSORIUM/ORIENTATION: Yes alert Skin: COMMON NORMALS: no rashes or lesions noted GENERAL SKIN EXAM: no rashes or lesions noted Discharge Data Studies Completed and Pending Completed Studies During Hospitalization Category Date Time Status CT head wo con* [id number] Stat Cat Scan 06/05/24 21:25 Completed XR chest 1V portable [id number] Stat Exams 06/05/24 18:27 Completed XR hand LT 2V [id number] Stat Exams 06/05/24 21:25 Completed XR shoulder RT min 2V* [id number] Stat Exams 06/05/24 21:25 Completed CV. echo wo/w contrast [id number] Stat Ultrasound 06/05/24 21:21 Completed Pending at discharge Category Date Time Status Blood Culture Stat Lab 06/05/24 19:25 Results Radiology Impressions Chest X-Ray 06/05/24 18:27 IMPRESSION: 1. Atelectatic changes at the left lung base. No focal pulmonary consolidation. 2. Multiple small noncalcified nodules throughout both lung bales, no significantly changed from comparison. CT scan of the chest may be helpful for further characterization if clinically indicated. Hand X-Ray 06/05/24 21:25 IMPRESSION: 1. Left hand soft tissue swelling. 2. No acute fracture or dislocation. Head CT 06/05/24 21:25 IMPRESSION: 1. No acute intracranial findings. 2. Moderate cerebral small-vessel disease. 3. A 10 x 4 mm soft tissue density in the left external auditory canal. Consider cerumen, foreign body. Neoplasm may be considered less likely. Shoulder X-Ray 06/05/24 21:25 IMPRESSION: Unremarkable radiographic appearance of the shoulder. Laboratory Results WBC 12.27 10^3/uL (3.29-11.43) H 06/07/24 04:29 RBC 4.19 10^6/uL (3.85-5.65) 06/07/24 04:29 Hgb 11.90 g/dL (11.27-16.99) 06/07/24 04:29 Hct 39.1 % (37-53) 06/07/24 04:29 MCV 93.3 fl (82-101) 06/07/24 04:29 MCH 28.4 pg (27-33) 06/07/24 04:29 MCHC 30.4 g/dL (30-55) 06/07/24 04:29 RDW 12.6 % (12.1-15.1) 06/07/24 04:29 Plt Count 261 10^3/cmm (157-399) 06/07/24 04:29 MPV 9.6 fL (7.4-10.4) 06/07/24 04:29 Neut % (Auto) 90.7 % 06/07/24 04:29 Lymph % (Auto) 5.9 % 06/07/24 04:29 Page % (Auto) 2.7 % 06/07/24 04:29 Eos % (Auto) 0.0 % 06/07/24 04:29 Baso % (Auto) 0.1 % 06/07/24 04:29 Neut # (Auto) 11.14 10^3/uL (1.8-7.7) H 06/07/24 04:29 Lymph # (Auto) 0.7 10^3/uL (0.8-4.8) L 06/07/24 04:29 Page # (Auto) 0.3 10^3/uL (0.2-0.9) 06/07/24 04: Eos # (Auto) 0.0 10^3/uL (0.0-0.8) 06/07/24 04: Baso # (Auto) 0.0 10^3/uL (0.0-0.1) 06/07/24 04:29 Nucleated RBC % (auto) 0 % 06/07/24 04: Nucleated RBCs # 0.0 /100WBC 06/07/24 04:29 PT 13.50 SECONDS (12.1-14.9) 06/05/24 19:25 INR 1.00 (0.8-1.2) 06/05/24 19:25 D-Dimer 0.47 ug/mLFEU (0-0.59) 06/05/24 21:33 Specimen Type Arterial 06/05/24 20:45 Sample Site Radial, right 06/05/24 20:45 ABG pH 7.44 (7.35-7.45) 06/05/24 20:45 ABG pCO2 70.6 mmHg (35-45) H* 06/05/24 20:45 ABG pO2 116.0 mmHg (80.0-100.0) H 06/05/24 20:45 ABG PO2/FiO2 Ratio 257 06/05/24 20:45 ABG HCO3 47.7 mmol/L (22-26) H 06/05/24 20:45 ABG O2 Saturation 94.9 06/05/24 18:37 ABG Base Excess 19.7 mmol/L (-2.0-2.0) H 06/05/24 20:45 Dae Test Pos 06/05/24 20:45 A-a O2 Gradient Not Reportable 06/05/24 18:37 Hematocrit 38.2 % (42-52) L 06/05/24 20:45 Hgb O2 Saturation 92.5 % (95-100) L 06/05/24 18:37 Carboxyhemoglobin 1.4 %THgb (0.4-20.1) 06/05/24 18:37 Methemoglobin 1.1 % (0.4-1.5) 06/05/24 18:37 Total Hemoglobin 12.6 g/dL (14-18) L 06/05/24 18:37 Sodium 137.0 mmol/L (131-143) 06/05/24 18:37 Potassium 4.3 mmol/L (3.5-5.0) 06/05/24 18:37 Glucose 137.0 mg/dL (70-115) H 06/05/24 18:37 Ionized Calcium 1.2 mmol/L (1.1-1.4) 06/05/24 18:37 O2 Delivery Device Bipap 06/05/24 20:45 O2 Liters/Min 6.0 % 06/05/24 18:37 FiO2 45.0 % 06/05/24 20:45 Agronomy Location Manager ID [email or web address] 06/05/24 20:45 Sodium 136 mmol/L (136-145) 06/07/24 04:29 Potassium 4.9 mmol/L (3.5-5.1) 06/07/24 04:29 Chloride 92 mmol/L (98-107) L 06/07/24 04:29 Carbon Dioxide 40 mmol/L (22-29) H 06/07/24 04:29 Anion Gap 8.9 (5-19) 06/07/24 04:29 BUN 17 mg/dL (8-23) 06/07/24 04:29 Creatinine 0.7 mg/dL (0.7-1.2) 06/07/24 04:29 GFR Calculation 115.0 mL/min (90-130) 06/07/24 04:29 Glucose 370 mg/dL (65-115) H 06/07/24 04:29 POC Glucose 385 mg/dL (70-110) H 06/07/24 11:14 Estimat Average Glucose 146 06/05/24 19:25 Hemoglobin A1c 6.7 % (4.0-6.0) H 06/05/24 19:25 Calculated Osmolality 299 mOsm/kg (285-295) H 06/07/24 04:29 Calcium 8.4 mg/dL (8.5-10.5) L 06/07/24 04:29 Magnesium 2.2 mg/dL (1.7-2.3) 06/05/24 19:25 Total Bilirubin 0.3 mg/dL (0.15-1.2) 06/07/24 04:29 AST 17 U/L (0-40) 06/07/24 04:29 ALT 37 U/L (0-41) 06/07/24 04:29 Alkaline Phosphatase 58 U/L (40-130) 06/07/24 04:29 Troponin T Baseline 46 ng/L (0-15) H 06/05/24 19:25 Troponin T 120 Minute 48.55 ng/L (0-15) H 06/05/24 21:33 Delta Troponin T 2.55 ABS# (0-10) 06/05/24 21:33 Troponin T Hi Sens 6Hr 50.41 ng/L (0-15) H 06/06/24 00:19 Troponin T Hi Sens 6Hr Delta 4.41 ng/L (0-12) 06/06/24 00:19 C-Reactive Protein 5.4 mg/L (0.0-4.9) H 06/05/24 21:33 NT-Pro-B Natriuret Pep 247 pg/mL (0-125) H 06/05/24 19:25 Total Protein 6.6 g/dL (6.6-8.7) 06/07/24 04:29 Albumin 3.6 g/dL (3.5-5.2) 06/07/24 04:29 Globulin 3.0 g/dL (1.3-4.6) 06/07/24 04:29 Procalcitonin 0.07 ng/mL (0-0.5) 06/05/24 21:33 TSH 3.52 uIU/mL (0.27-4.20) 06/05/24 19:25 Urine Color Yellow (Yellow) 06/05/24 19:35 Urine Appearance Clear (CLEAR) 06/05/24 19:35 Urine pH 8.5 (5-7) A 06/05/24 19:35 Ur Specific Recluse 1.012 (1.005-1.030) 06/05/24 19:35 Urine Protein Negative (Negative) 06/05/24 19:35 Urine Glucose (UA) Negative (Normal) 06/05/24 19:35 Urine Ketones Negative (Negative) 06/05/24 19:35 Urine Blood Negative (Negative) 06/05/24 19:35 Urine Nitrate Negative (Negative) 06/05/24 19:35 Urine Bilirubin Negative (Negative) 06/05/24 19:35 Urine Urobilinogen 0.2 mg/dL (Negative) 06/05/24 19:35 Ur Leukocyte Esterase Negative (Negative) 06/05/24 19:35 Urine RBC 0-2 /hpf (0-2) 06/05/24 19:35 Urine WBC 0-5 /hpf (0-5) 06/05/24 19:35 Ur Squamous Epith Cells 0-5 /hpf (0-5) 06/05/24 19:35 Amorphous Sediment Not Reportable 06/05/24 19:35 Urine Bacteria None seen /hpf (NONE) 06/05/24 19:35 Hyaline Casts 0-4 /lpf H 06/05/24 19:35 Coronavirus (PCR) Negative (Negative) 06/05/24 22:35 Influenza A (PCR) Negative (Negative) 06/05/24 22:35 Influenza Type B (PCR) Negative (Negative) 06/05/24 22:35 RSV (PCR) Negative (Negative) 06/05/24 22:35 Vitals Last Vital Signs Temp 98.2 F 06/07/24 07:27 Pulse 102 H 06/07/24 11:20 Resp 16 06/07/24 11:20 BP 124/73 06/07/24 07:27 Pulse Ox 92 06/07/24 11:20 O2 Del Method Nasal Cannula 06/07/24 11:20 O2 Flow Rate 3 06/07/24 11:20 FiO2 40 06/07/24 03:50 Discharge Plan Discharge Patient Disposition: Home Condition: Stable Prescriptions: New prednisone 20 mg tablet See Rx Instructions .ROUTE .COMPLEX Qty: 20 0RF Rx Instructions: 3 tab daily for 3 days, then 2 tab for 3 days, then 1 tab for 3 days, then 1/2 tab for 4 days. levofloxacin 750 mg tablet 750 mg PO DAILY 4 Days Qty: 4 0RF Continued fluticasone propion-salmeterol 250-50 mcg/dose blister with device 1 inh INHALATION BID atorvastatin 20 mg tablet 20 mg PO DAILY albuterol sulfate 2.5 mg /3 mL (0.083 %) solution for nebulization 2.5 mg inhalation Q4H PRN (Reason: Cough and wheezing) glyburide 5 mg tablet 50 mg PO DAILY IBU 800 mg tablet 800 mg PO TID PRN (Reason: Pain) sildenafil 100 mg tablet See Rx Instructions .ROUTE .COMPLEX Rx Instructions: TAKE 1 TAB BY MOUTH 30 MINUTES PRIOR TO INTERCOURSE NEEDED, NO NITRATES benzonatate 100 mg capsule 100 mg PO Q8H PRN (Reason: Cough) metformin 1,000 mg tablet 1,000 mg PO BID lisinopril 10 mg tablet 10 mg PO DAILY gabapentin 300 mg capsule 300 mg PO TID hydrochlorothiazide 25 mg tablet 25 mg PO DAILY albuterol sulfate 90 mcg/actuation HFA aerosol inhaler 1 puff INHALATION Q6H PRN (Reason: Shortness Of Breath) fluticasone propionate 50 mcg/actuation spray,suspension 2 spray INTRANASAL DAILY Trulicity 1.5 mg/0.5 mL pen injector 1.5 mg SUBCUT Q7D Rx Instructions: on Tuesday Spiriva Respimat 1.25 mcg/actuation mist 2 inh INHALATION DAILY Discharge Orders: Discharge Order (Routine); Ordered 06/07/24 Ordered By: Colton Arvizu Other Ambulatory Orders: DME: BIPAP (Order) Location: None Selected Ordered By: Colton Arvizu Referrals: Pulmonary [Provider Group] - 2 weeks Shaniqua Carey MD [Primary Care Provider] - 06/14/24 1:00 pm Discharge Diet: Cardiac Discharge Activity: Increase activity as tolerated, Oxygen as instructed and Cpap/Bipap as instructed Patient Instructions: Prednisone (By mouth), Levofloxacin (By mouth), COPD (Chronic Obstructive Pulmonary Disease) (GEN), COPD Stoplight Activity Restrictions/Additional Instructions: Follow-up with regards to arrangements for BiPAP and continue to wear BiPAP nightly. Continue oxygen as previously 3 L/min, target oxygen saturation 88-92%. Avoid oxygen saturation that is overly high as it may contribute to retention of carbon oxide as discussed. Follow-up with your primary provider, follow-up with pulmonology for reassessment of COPD, reassessment after pneumonia. Follow-up with your prime provider also regarding efforts for weight loss and options that may be helpful. Follow-up with your primary doctor regarding 10 x 4 mm soft tissue density in the left external auditory canal incidentally seen on CT. Seek medical attention in case of any worsening or new concerning symptoms. Discharge Attestations Time Spent in Discharge Care*: greater than 30 min Quality Metrics Clinical Quality Measures [ No reported AMI, CVA or VTE this stay] Coding Level of Care Code 01012 Total time (in minutes) for Discharge: 50 Diagnoses Acute respiratory failure with hypoxia and hypercapnia J96.01; J96.02 Fall W19.XXXA Pneumonia J18.9
== END 2024-06-07 11:41 | disposition home or self-care (01) | DRG 190 ==
LOC: ER 21:02 → MEDSURG 21:26
PROVIDERS: Admitting Provider Family Medicine; Emergency Provider Emergency Medicine; PCP Internal Medicine; Visit Provider Internal Medicine
DX: J44.1 Chronic obstructive pulmonary disease with (acute) exacerbation (principal); J18.9 Pneumonia, unspecified organism; J96.02 Acute respiratory failure with hypercapnia; J96.01 Acute respiratory failure with hypoxia; E66.2 Morbid (severe) obesity with alveolar hypoventilation; Z68.42 Body mass index [BMI] 45.0-49.9, adult; Z99.81 Dependence on supplemental oxygen; J44.0 Chronic obstructive pulmonary disease with (acute) lower respiratory infection; Z87.891 Personal history of nicotine dependence; R91.8 Other nonspecific abnormal finding of lung field; Z79.899 Other long term (current) drug therapy; W19.XXXA Unspecified fall, initial encounter; Z11.52 Encounter for screening for COVID-19; M25.511 Pain in right shoulder; M79.642 Pain in left hand; R59.0 Localized enlarged lymph nodes; E11.9 Type 2 diabetes mellitus without complications
CPT/HCPCS: 0241U; 36415; 36416; 36600; 70450; 71045; 73030; 73120; 80048; 80051; 80053; 81001; 82330; 82803; 82805; 82962; 83036; 83735; 83880; 84145; 84443; 84484; 85025; 85378; 85610; 86140; 87040; 87070; 87150; 87205; 93005; 94640; 94660; 94664; 94762; 96365; 96372; 99291; C8929; J1650; J1815; J1956; J2470; J2919; J7613; J7626

== ENCOUNTER 2024-09-07 15:35 | Inpatient (IN) | payer MEDICARE, SELFPAY ==
[2024-09-07] VITALS (25 sets, daily range): BP systolic 65–119; BP diastolic 38–80; PULSE 75–107; RESP 9–26; TEMP 36.6–36.7; O2SAT 79–95; BMI 46.8; BMI 47.8
--- NOTE | 2024-09-07 15:52 | XRR_ITS ---
PROCEDURE INFORMATION: Exam: XR Chest Exam date and time: 09/07/2024 4:38 PM Age: 59 years old Clinical indication: Shortness of breath TECHNIQUE: Imaging protocol: Radiologic exam of the chest. Views: 1 view. COMPARISON: CR XR chest 1V portable [id number] 06/05/2024 6:38 PM FINDINGS: Tubes, catheters and devices: Overlying monitor leads. Lungs: Left perihilar and infrahilar streaky opacities or infiltrate along with component of atelectasis left lung base and to a lesser extent right lung base. Scattered small pulmonary nodules appear chronic with prior exam. Pleural spaces: No significant pleural effusion. No pneumothorax. Heart/Mediastinum: Upper limits of normal cardiac size. Diaphragm: Chronic elevation or eventration of the left hemidiaphragm with prior exam. Bones/joints: Visualized osseous structures show no acute abnormality. XR/XR chest 1V portable [id number] IMPRESSION: Left perihilar and infrahilar streaky opacities or infiltrate/pneumonia, along with component of atelectasis left lung base and to a lesser extent right lung base. Follow-up with treatment can be performed.
--- NOTE | 2024-09-07 15:53 | ECG_ITS ---
[employer] Test Date: 2024-09-07 Pat Name: Walter Medina Department: Room: Gender: Male Final Expense Agent: : [id number] Requested By: Janene Fermin Order Number: [id number] Melody MD: Kai Duff M.D. Measurements Intervals [place] Rate: 104 P: 38 IA: 133 QRS: 94 QRSD: 153 T: -50 QT: 371 QTc: 489 Interpretive Statements SINUS TACHYCARDIA RIGHT BUNDLE BRANCH BLOCK [120+ ms QRS DURATION, UPRIGHT V1, 40+ ms S IN I/aVL/V4/V5/V6] MODERATE T-WAVE ABNORMALITY, CONSIDER LATERAL ISCHEMIA [-0.1+ mV T-WAVE IN I/aVL/V5/V6] MODERATE T-WAVE ABNORMALITY, CONSIDER INFERIOR ISCHEMIA [-0.1+ mV T-WAVE IN II/aVF] Compared to ECG 06/06/2024 01:56:39 T-wave abnormality now present Possible ischemia now present Short IA interval no longer present Right-axis deviation no longer present Electronically Signed On 09-07-2024 21:55:17 APARTMENT LOCATOR by Kai Duff M.D. [email or web address]
[2024-09-07] MEDS: albuterol 2.5 mg/3 mL Neb INHALATION (16:03)
[2024-09-07] MEDS: ipratropium-albuterol 3 mL Neb INHALATION (16:03)
[2024-09-07 16:06] LABS: ABG PH Result 7.27 (7.35-7.45); Arterial Blood Gas Hematocrit 39.8 % (42-52); Base Excess ABG 2.4 mmol/L (-2.0-2.0); Blood Gas Allen Test Pos; Blood Gas Sample Type Arterial; Carboxyhemoglobin 1.1 %THgb (0.4-20.1); HCO3 ABG 31.3 mmol/L (22-26); HGB O2 Sat 92.5 % (95-100); Ionized Calcium Level - ABG 1.1 mmol/L (1.1-1.4); Methemoglobin 0.4 % (0.4-1.5); PO2 ABG 84.1 mmHg (80.0-100.0)
[2024-09-07 16:07] LABS: ABG PCO2 68.7 mmHg (35-45); Alveolar-Arterial Oxygen Gradi 12.1 mmHg (5-10); Blood Gas Operator Identificat MONRO; Blood Gas Sample Site Radial, right; Oxygen Device NC; PO2 FiO2 Ratio Arterial Blood 233
[2024-09-07 16:16] LABS: Basophils % 0.3 %; Hematocrit 43.3 % (37-53); Lymphocytes # 1.8 10^3/uL (0.8-4.8); Lymphocytes % 18.9 %; Mean Corpuscular HGB Conc 30.5 g/dL (30-55); Mean Corpuscular Hemoglobin 28.4 pg (27-33); Mean Corpuscular Volume 93.3 fl (82-101); Mean Platelet Volume 9.5 fL (7.4-10.4); Monocytes # 0.9 10^3/uL (0.2-0.9); Neutrophils % 70.4 %; Nucleated Red Blood Cells % 0 %; Platelet Count 221 10^3/cmm (157-399); Red Blood Count 4.64 10^6/uL (3.85-5.65); Red Cell Distribution Width 13.7 % (12.1-15.1); White Blood Count 9.24 10^3/uL (3.29-11.43)
[2024-09-07] MEDS: sodium chloride 0.9% 1,000 ML 999 ML IV ×3 (16:17→19:09)
[2024-09-07] MEDS: methylPREDNISolone sod succ 125 mg/2 mL INJ IVP (16:18)
[2024-09-07 16:46] LABS: Lactic Sepsis W/Reflex 2.6 mmol/L (0.5-2.2)
[2024-09-07 16:51] LABS: Troponin(5th) Baseline 484 ng/L (0-15)
[2024-09-07 16:52] LABS: Alanine Aminotransferase 41 U/L (0-41); Alkaline Phosphatase 62 U/L (40-130); Anion Gap 18.4 (5-19); Aspartate Amino Transferase 56 U/L (0-40); Blood Urea Nitrogen 40 mg/dL (8-23); C Reactive Protein 74.1 mg/L (0.0-4.9); Calcium 8.5 mg/dL (8.5-10.5); Carbon Dioxide 32 mmol/L (22-29); Chloride 88 mmol/L (98-107); Creatinine Clr Calc Pharmacy 31.8747; Globulin 2.9 g/dL (1.3-4.6); Glomerular Filtration Rate 16.8 mL/min (90-130); Glucose 157 mg/dL (65-115); NT Pro B Type Natriuretic Pept 7106 pg/mL (0-125); Osmolality Calculated 291 mOsm/kg (285-295); Potassium 4.4 mmol/L (3.5-5.1); Sodium 134 mmol/L (136-145); Total Bilirubin 0.2 mg/dL (0.15-1.2); Total Protein 6.9 g/dL (6.6-8.7)
--- NOTE | 2024-09-07 16:57 | W.ED.SOB ---
HPI - SOB/Dyspnea General: Chief Complaint: Shortness of Breath/Dyspnea Stated Complaint: SOB Time Seen by Provider: 09/07/24 15:48 History of Present Illness: HPI Narrative: 59-year-old man with a history of type 2 diabetes, morbid obesity and COPD who presents to the emergency room with weakness, shortness of breath, cough. He says he has had a cold for a few days but over the last day it hit him really hard. On presentation here his blood pressure soft to low. He is mildly tachycardic. He is hypoxemic initially. Related Data Home Medications Medication Instructions Recorded Confirmed albuterol sulfate 2.5 mg/3 mL 2.5 mg inhalation Q4H PRN Cough 06/06/24 09/07/24 (0.083 %) solution for nebulization and wheezing albuterol sulfate 90 mcg/actuation 1 puff inhalation Q6H PRN 06/06/24 09/07/24 aerosol inhaler Shortness Of Breath atorvastatin 20 mg tablet 20 mg PO DAILY 06/06/24 09/07/24 dulaglutide 1.5 mg/0.5 mL 1.5 mg SUBCUT Q7D 06/06/24 09/07/24 subcutaneous pen injector (Trulicity) fluticasone 250 mcg-salmeterol 50 1 inh inhalation BID 06/06/24 09/07/24 mcg/dose blistr powdr for inhalation fluticasone propionate 50 2 spray intranasal DAILY 06/06/24 09/07/24 mcg/actuation nasal spray,suspension gabapentin 300 mg capsule 300 mg PO TID 06/06/24 09/07/24 glyburide 5 mg tablet 50 mg PO DAILY 06/06/24 09/07/24 hydrochlorothiazide 25 mg tablet 25 mg PO DAILY 06/06/24 09/07/24 ibuprofen 800 mg tablet (IBU) 800 mg PO TID PRN Pain 06/06/24 09/07/24 lisinopril 10 mg tablet 10 mg PO DAILY 06/06/24 09/07/24 metformin 1,000 mg tablet 1,000 mg PO BID 06/06/24 09/07/24 sildenafil 100 mg tablet See Rx Instructions .Route .COMPLEX 06/06/24 09/07/24 tiotropium bromide 1.25 2 inh inhalation DAILY 06/06/24 09/07/24 mcg/actuation mist for inhalation (Spiriva Respimat) Allergies Allergy/AdvReac Type Severity Reaction Status Date / Time No Known Allergies Allergy Verified 06/05/24 18:32 Review of Systems Narrative: Constitutional symptoms: Negative except as documented in HPI. Skin symptoms: Negative except as documented in HPI. Eye symptoms: Negative except as documented in HPI. ENMT symptoms: Negative except as documented in HPI. Respiratory symptoms: Negative except as documented in HPI. Cardiovascular symptoms: Negative except as documented in HPI. Gastrointestinal symptoms: Negative except as documented in HPI. Genitourinary symptoms: Negative except as documented in HPI. Musculoskeletal symptoms: Negative except as documented in HPI. Neurologic symptoms: Negative except as documented in HPI. Psychiatric symptoms: Negative except as documented in HPI. Endocrine symptoms: Negative except as documented in HPI. PFSH ED PFSH: Medical History History of type 2 diabetes mellitus History of morbid obesity History of COPD Surgical History History of appendectomy Family History Mother Diabetes Social History Smoking and tobacco/nicotine status: former use of tobacco/nicotine Alcohol intake: never Substance/Drug Use: never Physical Exam Narrative: EXAM NARRATIVE: General: Alert, appears in some distress Skin: Warm, dry. Head: Normocephalic, atraumatic. Neck: Supple, trachea midline. Eye: Extraocular movements are intact. Ears, nose, mouth and throat: Dry oral mucosa Cardiovascular: Regular, Normal peripheral perfusion. Respiratory: Coarse, scattered wheeze, moderate increased work of breathing Gastrointestinal: Soft, Nontender, Non distended Musculoskeletal: Normal ROM, no deformity. Neurological: Alert and oriented, No focal neurological deficit observed. Psychiatric: Cooperative, appropriate mood & affect. Course Vital Signs: Vital signs: Vital Signs Temperature 98.0 F 09/07/24 15:39 Pulse Rate 92 09/07/24 18:43 Respiratory Rate 17 09/07/24 17:30 Blood Pressure 83/44 09/07/24 16:26 Pulse Oximetry 92 09/07/24 18:43 Oxygen Delivery Me thod Nasal Cannula 09/07/24 16:05 Oxygen Flow Rate 3.5 09/07/24 16:05 Fraction of Inspir ed Oxygen 35 09/07/24 18:43 MDM - SOB/Dyspnea Medical Decision Making Differential diagnosis for patient with shortness of breath includes but is not limited to and based on the above HPI, review of systems and physical exam: Pneumonia. Bronchitis. Asthma or COPD with acute exacerbation. Acute coronary syndrome / [place]. Pulmonary embolism. Anxiety. Congestive heart failure. Viral infections including influenza and Covid-19. Atrial fibrillation. Anxiety. Pleural effusion. Pneumothorax. Orders placed to evaluate differential diagnosis based on the above differential, HPI and physical exam AB.2 with a sat of 94% on 4 L nasal cannula. Patient was placed on BiPAP at this time. EKG: Time 1548. Rate 104. Sinus tachycardia, diffuse ST depression., no ectopy, right bundle branch block, This was reviewed and interpreted by myself the ER physician at 1550. Repeat EKG: Time 1819. Rate 98. Normal sinus rhythm, No ST-T changes, no ectopy, right bundle branch block, This was reviewed and interpreted by myself the ER physician at 1821. Chest x-ray: Left perihilar and infrahilar streaky opacities which may represent pneumonia. This was reviewed and interpreted by myself the emergency room physician. I also reviewed the radiology report. CT of the chest: Chronic scattered pulmonary nodules. Mild scattered pulmonary opacities likely representing pneumonia. Could be an influenza pneumonitis as well. CT of the abdomen and pelvis without contrast: No obstructive uropathy or other acute processes. This was reviewed and interpreted by myself the emergency room physician. I also reviewed the radiology report. Lab Review: Laboratory results were reviewed and interpreted by myself the emergency room physician. Patient is influenza positive. No leukocytosis. No anemia. BUN and creatinine are quite elevated at 43.7. He normally has fairly normal function. I reviewed the patient's medical record. Reexamination: Patient remains alert. He has tolerated the BiPAP well. Oxygen saturations have remained fairly normal. Low 90s. His heart rates come down. However he has remained borderline hypotensive. Consultation: I spoke to Dr. Patel with cardiology about the patient. He reviewed the EKG. He thinks this may be A-fib. He thinks he is having a non-STEMI and recommends heparin drip. Consultation: I spoke with Dr. Mahmood who is on-call for the hospitalist service who agrees to admission to the ICU. Assessment and plan: Influenza Pneumonia versus pneumonitis COPD with acute exacerbation Acute hypercapnic respiratory failure Acute on chronic hypoxemic respiratory failure Hypotension Acute renal failure Dehydration Possible sepsis Non-ST elevation myocardial infarction ?This may just be dehydration and renal failure and hypotension all secondary to an influenza. With pneumonitis that is just a flu pneumonitis but given his persistent hypotension I am treating him for possible sepsis. -3.0 L normal saline bolus. Fluid volumes based on ideal body weight. -Broad-spectrum antibiotics were administered. Meropenem and Zyvox -Sepsis quality measures. -Lactic acid with a reflex was ordered. -Blood cultures were ordered. ?Elevated cardiac markers and some ST depression. No elevation. Likely secondary to strain and hypoxemia. Cardiology was consulted in the emergency room. Starting heparin drip. He is had no chest pain. Second troponin is actually coming down. ?Patient is placed on BiPAP. He is tolerating this. Seems to be improving somewhat. -I discussed the patient with the hospitalist on-call who is admitting the patient. - Discussed findings and plan with patient. Answered any questions. - All laboratory values were reviewed and interpreted personally by myself, the ER physician - All imaging was reviewed and interpreted personally by myself, the ER physician. - Evaluation and treatment of this problem were appropriate in the emergency setting Critical care -I spent a total of >65 minutes of critical care time managing the patient, independent of any other practitioner. -The time involved in the performance of separately reportable procedures was not counted towards critical care time. Lab Data 09/07/24 16:01 09/07/24 16:01 Labs/Radiology: Radiology Impressions Chest X-Ray 09/07/24 15:52 IMPRESSION: Left perihilar and infrahilar streaky opacities or infiltrate/pneumonia, along with component of atelectasis left lung base and to a lesser extent right lung base. Follow-up with treatment can be performed. Chest/Abdomen/Pelvis CT 09/07/24 17:01 IMPRESSION: 1. Chronic scattered small pulmonary nodules bilaterally, including component of small calcified granulomas. 2. Mild scattered pulmonary opacities mid and lower lungs with component of lower lung atelectasis. Findings likely represent pneumonia. 3. Mildly prominent or mildly reactive lymph nodes. IMPRESSION: 1. No acute findings. 2. Minimal sigmoid colon diverticulosis without diverticulitis. 3. Mild fatty liver. 4. Previous appendectomy. Laboratory Results WBC 9.24 10^3/uL (3.29-11.43) 09/07/24 16: RBC 4.64 10^6/uL (3.85-5.65) 09/07/24 16: Hgb 13.20 g/dL (11.27-16.99) 09/07/24 16: Hct 43.3 % (37-53) 09/07/24 16: MCV 93.3 fl (82-101) 09/07/24 16: MCH 28.4 pg (27-33) 09/07/24 16: MCHC 30.5 g/dL (30-55) 09/07/24 16: RDW 13.7 % (12.1-15.1) 09/07/24 16: Plt Count 221 10^3/cmm (157-399) 09/07/24 16: MPV 9.5 fL (7.4-10.4) 09/07/24 16: Neut % (Auto) 70.4 % 09/07/24 16: Lymph % (Auto) 18.9 % 09/07/24 16: Hickman % (Auto) 10.0 % 09/07/24 16: Eos % (Auto) 0.0 % 09/07/24 16: Baso % (Auto) 0.3 % 09/07/24 16: Neut # (Auto) 6.50 10^3/uL (1.8-7.7) 09/07/24 16: Lymph # (Auto) 1.8 10^3/uL (0.8-4.8) 09/07/24 16:01 Hickman # (Auto) 0.9 10^3/uL (0.2-0.9) 09/07/24 16:01 Eos # (Auto) 0.0 10^3/uL (0.0-0.8) 09/07/24 16:01 Baso # (Auto) 0.0 10^3/uL (0.0-0.1) 09/07/24 16:01 Nucleated RBC % (auto) 0 % 09/07/24 16:01 Nucleated RBCs # 0.0 /100WBC 09/07/24 16:01 PT 13.10 SECONDS (12.1-14.9) 09/07/24 16:01 INR 0.97 (0.8-1.2) 09/07/24 16:01 APTT 32.4 SECONDS (23.9-36.7) 09/07/24 16:01 D-Dimer 0.44 ug/mLFEU (0-0.59) 09/07/24 16:01 Specimen Type Arterial 09/07/24 15:52 Sample Site Radial, right 09/07/24 15:52 ABG pH 7.27 (7.35-7.45) L 09/07/24 15:52 ABG pCO2 68.7 mmHg (35-45) H* 09/07/24 15:52 ABG pO2 84.1 mmHg (80.0-100.0) 09/07/24 15:52 ABG PO2/FiO2 Ratio 233 09/07/24 15:52 ABG HCO3 31.3 mmol/L (22-26) H 09/07/24 15:52 ABG O2 Saturation 94.0 09/07/24 15:52 ABG Base Excess 2.4 mmol/L (-2.0-2.0) H 09/07/24 15:52 Dae Test Pos 09/07/24 15:52 A-a O2 Gradient 12.1 mmHg (5-10) H 09/07/24 15:52 Hematocrit 39.8 % (42-52) L 09/07/24 15:52 Hgb O2 Saturation 92.5 % (95-100) L 09/07/24 15:52 Carboxyhemoglobin 1.1 %THgb (0.4-20.1) 09/07/24 15:52 Methemoglobin 0.4 % (0.4-1.5) 09/07/24 15:52 Total Hemoglobin 13.0 g/dL (14-18) L 09/07/24 15:52 Sodium 134.0 mmol/L (131-143) 09/07/24 15:52 Potassium 4.0 mmol/L (3.5-5.0) 09/07/24 15:52 Glucose 138.0 mg/dL (70-115) H 09/07/24 15:52 Ionized Calcium 1.1 mmol/L (1.1-1.4) 09/07/24 15:52 O2 Delivery Device Nc 09/07/24 15:52 O2 Liters/Min 4.0 % 09/07/24 15:52 FiO2 36.0 % 09/07/24 15:52 Public Finance Specialist ID [place] 09/07/24 15:52 Sodium 134 mmol/L (136-145) L 09/07/24 16:01 Potassium 4.4 mmol/L (3.5-5.1) 09/07/24 16:01 Chloride 88 mmol/L (98-107) L 09/07/24 16:01 Carbon Dioxide 32 mmol/L (22-29) H 09/07/24 16:01 Anion Gap 18.4 (5-19) 09/07/24 16:01 BUN 40 mg/dL (8-23) H 09/07/24 16:01 Creatinine 3.7 mg/dL (0.7-1.2) H 09/07/24 16:01 GFR Calculation 16.8 mL/min (90-130) L 09/07/24 16:01 Glucose 157 mg/dL (65-115) H 09/07/24 16:01 Calculated Osmolality 291 mOsm/kg (285-295) 09/07/24 16:01 Lactic Acid 2.6 mmol/L (0.5-2.2) H 09/07/24 16:01 Lactic Acid (Sepsis) 2.0 mmol/L (0.5-2.2) 09/07/24 18:42 Calcium 8.5 mg/dL (8.5-10.5) 09/07/24 16:01 Total Bilirubin 0.2 mg/dL (0.15-1.2) 09/07/24 16:01 AST 56 U/L (0-40) H 09/07/24 16:01 ALT 41 U/L (0-41) 09/07/24 16:01 Alkaline Phosphatase 62 U/L (40-130) 09/07/24 16:01 Troponin T Baseline 484 ng/L (0-15) H* 09/07/24 16:01 Troponin T 120 Minute 472.0 ng/L (0-15) H 09/07/24 18:01 Delta Troponin T -12.0 ABS# (0-10) L 09/07/24 18:01 C-Reactive Protein 74.1 mg/L (0.0-4.9) H 09/07/24 16:01 NT-Pro-B Natriuret Pep 7106 pg/mL (0-125) H 09/07/24 16:01 Total Protein 6.9 g/dL (6.6-8.7) 09/07/24 16:01 Albumin 4.0 g/dL (3.5-5.2) 09/07/24 16:01 Globulin 2.9 g/dL (1.3-4.6) 09/07/24 16:01 Urine Color Dark yellow (Yellow) A 09/07/24 19:35 Urine Appearance Turbid (CLEAR) A 09/07/24 19:35 Urine pH 5.0 (5-7) 09/07/24 19:35 Ur Specific [place] 1.025 (1.005-1.030) 09/07/24 19:35 Urine Protein 2+ (Negative) A 09/07/24 19:35 Urine Glucose (UA) Negative (Normal) 09/07/24 19:35 Urine Ketones Trace (Negative) 09/07/24 19:35 Urine Blood Non-haemolysed trace (Negative) 09/07/24 19:35 Urine Nitrate Negative (Negative) 09/07/24 19:35 Urine Bilirubin Negative (Negative) 09/07/24 19:35 Urine Urobilinogen 1.0 mg/dL (Negative) 09/07/24 19:35 Ur Leukocyte Esterase Negative (Negative) 09/07/24 19:35 Amorphous Sediment Not Reportable 09/07/24 19:35 Coronavirus (PCR) Negative (Negative) 09/07/24 16:25 Influenza A (PCR) Positive (Negative) 09/07/24 16:25 Influenza Type B (PCR) Negative (Negative) 09/07/24 16:25 RSV (PCR) Negative (Negative) 09/07/24 16:25 All radiology interpretation(s) finalized by discharge Discharge Plan Discharge Patient Disposition: Admitted As Inpatient Clinical Impression: Influenza, Acute exacerbation of chronic obstructive airways disease, Acute and chronic respiratory failure with hypercapnia, Pneumonia, Acute renal failure, Hypotension, Sepsis Condition: Stable Coding Level of Care Code ED Insurance Territory Manager for Rose Robb
--- NOTE | 2024-09-07 17:01 | CTR_ITS ---
PROCEDURE INFORMATION: Exam: CT Chest Without Contrast; Diagnostic Exam date and time: 09/07/2024 5:48 PM Age: 59 years old Clinical indication: Other: Sepsis. Renal failure TECHNIQUE: Imaging protocol: Diagnostic computed tomography of the chest without contrast. Radiation optimization: All CT scans at this facility use at least one of these dose optimization techniques: automated exposure control; mA and/or kV adjustment per patient size (includes targeted exams where dose is matched to clinical indication); or iterative reconstruction. COMPARISON: CR XR chest 1V portable [id number] 09/07/2024 4:38 PM RADIATION DOSE METRICS: Total DLP (mGy-cm): 1521.82 FINDINGS: Lungs: Lung windows demonstrate scattered small pulmonary nodules bilaterally appearing chronic with prior exam. This includes some component of small calcified pulmonary nodules or granulomas. Mild scattered opacities mid to lower lungs is seen, along with component of lower lung atelectasis. No consolidation. No pleural effusion. No pneumothorax. Pleural spaces: See Lungs finding. Heart: Borderline cardiac size. No significant pericardial effusion. No significant coronary artery calcification. Lymph nodes: Mildly prominent lymph nodes suggested with today's exam suggesting mild adenopathy. This may be reactive. Vasculature: Unremarkable. No aortic aneurysm. Bones/joints: Unremarkable. No acute fracture. Soft tissues: Unremarkable. PROCEDURE INFORMATION: Exam: CT Abdomen And Pelvis Without Contrast Exam date and time: 09/07/2024 5:48 PM Age: 59 years old Clinical indication: Other: Sepsis. Renal failure TECHNIQUE: Imaging protocol: Computed tomography of the abdomen and pelvis without contrast. Radiation optimization: All CT scans at this facility use at least one of these dose optimization techniques: automated exposure control; mA and/or kV adjustment per patient size (includes targeted exams where dose is matched to clinical indication); or iterative reconstruction. COMPARISON: CT abdomen pelvis w con* [id number] 03/24/2018 11:37 PM RADIATION DOSE METRICS: Total DLP (mGy-cm): 1521.82 FINDINGS: Liver: Mild fatty liver. Gallbladder and biliary ducts: Normal. No calcified stones. No ductal dilation. Pancreas: Normal. No ductal dilation. Spleen: Normal. No splenomegaly. Adrenal glands: Normal. No mass. Kidneys and ureters: No urinary tract stone or obstructive uropathy. No abnormal perinephric stranding. Kidneys appear unremarkable for unenhanced exam. Stomach and bowel: No obstruction. No significant mucosal thickening. A few sigmoid colon diverticula. No findings of diverticulitis. Appendix: Previous appendectomy. Intraperitoneal space: No free fluid or ascites. No free air. Vasculature: Abdominal aorta is unremarkable in caliber. No aneurysmal dilatation. Lymph nodes: Unremarkable. No significant enlarged lymph nodes. Urinary bladder: Unremarkable as visualized. Reproductive: Unremarkable as visualized. Bones/joints: Bone windows demonstrate [id number] degenerative disc disease lumbosacral junction. Soft tissues: Unremarkable. CT/[place] [id number] IMPRESSION: 1. Chronic scattered small pulmonary nodules bilaterally, including component of small calcified granulomas. 2. Mild scattered pulmonary opacities mid and lower lungs with component of lower lung atelectasis. Findings likely represent pneumonia. 3. Mildly prominent or mildly reactive lymph nodes. IMPRESSION: 1. No acute findings. 2. Minimal sigmoid colon diverticulosis without diverticulitis. 3. Mild fatty liver. 4. Previous appendectomy.
[2024-09-07 17:18] LABS: Covid PCR NEGATIVE (Negative); Influenza A POSITIVE (Negative); Influenza B NEGATIVE (Negative); Respiratory Syncytial Virus Ce NEGATIVE (Negative)
[2024-09-07 17:57] LABS: Reflex Lactate Order REFLEX LACTIC ORDERD
[2024-09-07] MEDS: meropenem 500 mg SDV IVP (18:08)
[2024-09-07] MEDS: linezolid premix 600 MG/300 ML PREMIX 300 MG IV (18:08)
[2024-09-07] MEDS: aspirin 81 mg Chew Tablet 324 MG PO (18:14)
--- NOTE | 2024-09-07 18:19 | ECG_ITS ---
[facility] Date: 2024-09-07 Pat Name: Walter Medina Department: Room: Gender: Male Operation Research Analyst: : 1965 Requested By: Janene Fermin Order Number: [id number] Melody MD: Kai Duff M.D. Measurements Intervals [place] Rate: 98 P: 48 IN: 135 QRS: 84 QRSD: 156 T: -40 QT: 388 QTc: 498 Interpretive Statements SINUS RHYTHM RIGHT BUNDLE BRANCH BLOCK [120+ ms QRS DURATION, UPRIGHT V1, 40+ ms S IN I/aVL/V4/V5/V6] MODERATE T-WAVE ABNORMALITY, CONSIDER INFERIOR ISCHEMIA [-0.1+ mV T-WAVE IN II/aVF] Compared to ECG 09/07/2024 15:48:47 Sinus tachycardia no longer present T-wave abnormality still present Possible ischemia still present Electronically Signed On 09-07-2024 22:05:33 HOTEL GUEST SERVICE AGENT by Kai Duff M.D. [email or web address]
--- NOTE | 2024-09-07 19:39 | P.HP_ITS ---
Providers/Chief Complaint 2 Primary Care Provider: Shaniqua Carey MD Chief Complaint: SOB History of Present Illness Walter Medina is a 59 year old male with past medical history significant for chronic hypoxic hypercapnic respite failure shortness uses BiPAP at home, 3 L during the daytime, ex-smoker, was discharged in May after management of pneumonia and hypercapnia presented today with worsening of shortness of breath. Patient is not endorsing chest pain, fever, nausea, vomiting diarrhea. No recent weight gain. Patient is endorsing poor p.o. intake feeling dehydrated. Patient is stating that his symptoms worsened in last 48 hours. He was short of breath with minimal activity despite getting all of his inhaler regimen and BiPAP. Endorsing fatigue and lethargy. No syncope or chest pain. In the ER patient was diagnosed with non-STEMI and pneumonia. He received IV fluid bolus, he is afebrile no leukocytosis. He does have acute on chronic kidney disease. Patient is endorsing low urine output secondary to dehydration Review of Systems 2 Const: Reports: chills and change in weight Eyes: Denies: change in vision ENMT: Denies: throat pain Card: Denies: chest pain Resp: Reports: dyspnea GI: Reports: nausea Medications/Allergies Home Medications Medication Instructions Recorded Confirmed Last Taken Type albuterol sulfate 2.5 mg/3 mL 2.5 mg inhalation Q4H PRN Cough 06/06/24 09/07/24 09/07/24 History (0.083 %) solution for nebulization and wheezing albuterol sulfate 90 mcg/actuation 1 puff inhalation Q6H PRN 06/06/24 09/07/24 Unknown History aerosol inhaler Shortness Of Breath atorvastatin 20 mg tablet 20 mg PO DAILY 06/06/24 09/07/24 09/07/24 History dulaglutide 1.5 mg/0.5 mL 1.5 mg SUBCUT Q7D 06/06/24 09/07/24 09/02/24 History subcutaneous pen injector (Trulicity) fluticasone 250 mcg-salmeterol 50 1 inh inhalation BID 06/06/24 09/07/24 06/05/24 History mcg/dose blistr powdr for inhalation fluticasone propionate 50 2 spray intranasal DAILY 06/06/24 09/07/24 09/07/24 History mcg/actuation nasal spray,suspension gabapentin 300 mg capsule 300 mg PO TID 06/06/24 09/07/24 09/07/24 History glyburide 5 mg tablet 50 mg PO DAILY 06/06/24 09/07/24 09/07/24 History hydrochlorothiazide 25 mg tablet 25 mg PO DAILY 06/06/24 09/07/24 09/07/24 History ibuprofen 800 mg tablet (IBU) 800 mg PO TID PRN Pain 06/06/24 09/07/24 09/07/24 History lisinopril 10 mg tablet 10 mg PO DAILY 06/06/24 09/07/24 09/07/24 History metformin 1,000 mg tablet 1,000 mg PO BID 06/06/24 09/07/24 09/07/24 History sildenafil 100 mg tablet See Rx Instructions .Route .COMPLEX 06/06/24 09/07/24 Unknown History tiotropium bromide 1.25 2 inh inhalation DAILY 06/06/24 09/07/24 09/07/24 History mcg/actuation mist for inhalation (Spiriva Respimat) Allergies Allergy/AdvReac Type Severity Reaction Status Date / Time No Known Allergies Allergy Verified 06/05/24 18:32 PFSH Acute 2 PFSH: Medical History History of type 2 diabetes mellitus History of morbid obesity History of COPD Surgical History History of appendectomy Family History Mother Diabetes Social History Smoking and tobacco/nicotine status: former use of tobacco/nicotine Alcohol intake: never Substance/Drug Use: never Vitals/I&O/Wt Last Vital Signs Temp 98.0 F 09/07/24 15:39 Pulse 92 09/07/24 18:43 Resp 17 09/07/24 17:30 BP 83/44 09/07/24 16:26 Pulse Ox 92 09/07/24 18:43 O2 Del Method Nasal Cannula 09/07/24 16:05 O2 Flow Rate 3.5 09/07/24 16:05 FiO2 35 09/07/24 18:43 09/07/24 09/07/24 09/07/24 06:59 14:59 22:59 Intake Total 1000 / 1000 Balance 1000 / 1000 Weight last 48 hrs Weight 152.407 kg Physical Exam 2 Narrative: Morbidly obese male No signs of fluid overload Awake and alert No active distress Currently on BiPAP Pleasant and cooperative No sign of focal deficit at the bedside No signs of fluid overload Distended nontender abdomen Patient does not want Ruiz catheter placement Urinary Catheter Management: Ruiz: Cath Placed During This Visit: yes Urinary Catheter Date of Insertion: 09/07/24 Urinary Catheter Time of Insertion: 19:37 Data 09/07/24 16:01 09/07/24 16:01 Micro: Microbiology 09/07/24 16:36 Blood Culture - Preliminary Blood SPECIMEN COLLECTED 09/07/24 16:32 Blood Culture - Preliminary Blood SPECIMEN COLLECTED A&P Assessment and plan (1) Non-STEMI (non-ST elevated myocardial infarction): (2) Influenza: (3) Acute renal failure: (4) Hypotension: (5) Pneumonia: Plan Non-STEMI Start ACS protocol Heparin drip Load with aspirin Plavix and continue aspirin Plavix maintenance regimen No active chest pain, ST depression noted on the EKG, Recently had echo Requested D-dimer Acute on chronic kidney disease creatinine 3.7, hold nephrotoxic agents, patient has taken ibuprofen, hydrochlorothiazide/lisinopril which I would hold, continue gentle fluid hydration overnight Monitor closely, no acute indication for dialysis Chronic hypoxic hypercarbic respiratory distress Currently on BiPAP at home uses BiPAP and 3 L of oxygen at baseline Concern for pneumonia on CT chest No sign of sepsis afebrile no leukocytosis Influenza A positive, conservative management, Patient was recently discharged on oral antibiotics for pneumonia Monitor for postviral bacterial infection Pulmonary nodules: Patient needs outpatient pulmonary follow-up DVT prophylaxis: Heparin Full code Cardiac diet/consistent carb diet with sliding scale Patient lives at home with his , uses BiPAP and 3 L at baseline Attestations 2 Medical Necessity Statement*: Anticipating more than 2 midnights in the hospital for management of pneumonia and non-STEMI Diagnoses Non-STEMI (non-ST elevated myocardial infarction) I21.4 Influenza J11.1 Acute renal failure N17.9 Hypotension I95.9 Pneumonia J18.9
[2024-09-07 19:47] LABS: Bilirubin Urine Negative (Negative); Blood Urine Non-haemolysed trace (Negative); Glucose Urine UA Negative (Normal); Ketones Urine Trace (Negative); Leukocyte Esterase Urine Negative (Negative); Nitrate Urine Negative (Negative); Protein Urine 2+ (Negative); Specific Gravity, Urine 1.025 (1.005-1.030); Urine Appearance Turbid (CLEAR); Urine Color Dark Yellow (Yellow)
[2024-09-07 19:52] LABS: Bacteria Urine None Seen /hpf; RBC Urine 0-2 /hpf (0-2); Squamous Epithelial Cell Urine 0-5 /hpf (0-5); Universal Test for UA Present (0); WBC Urine 0-5 /hpf (0-5)
[2024-09-07 19:53] LABS: INR 0.97 (0.8-1.2)
[2024-09-07 19:54] LABS: Partial Thromboplastin Time 32.4 SECONDS (23.9-36.7)
[2024-09-07] MEDS: heparin 5,000 unit/mL INJ 1 mL 4000 UNIT IVP (19:56)
[2024-09-07] MEDS: clopidogrel 300 mg Tablet PO (19:56)
[2024-09-07 19:58] LABS: D Dimer 0.44 ug/mLFEU (0-0.59)
[2024-09-07 20:10] LABS: Add Urine Culture? No; Amorphous Sediment Urine 1+ /hpf; Transitional Epi Cells Urine 0-4 /hpf
[2024-09-07 20:12] LABS: Procalcitonin 0.78 ng/mL (0-0.5)
[2024-09-07] MEDS: heparin drip 25,000 UNIT/500 ML PREMIX 36.58 UNIT IV (20:17)
[2024-09-07 22:32] LABS: Troponin 5 6HR Delta -47.3 ng/L (0-12)
[2024-09-07 22:33] LABS: Troponin 5 6HR 436.7 ng/L (0-15)
[2024-09-07] MEDS: norepinephrine 4 MG/250 ML BAG 30 MG IV (22:51)
[2024-09-07 23:12] LABS: Glucose Point of Care 201 mg/dL (70-110)
[2024-09-07 23:20] LABS: Estmated Average Glucose 143; Hemoglobin A1C 6.6 % (4.0-6.0)
[2024-09-08] VITALS (75 sets, daily range): BP systolic 71–132; BP diastolic 33–87; PULSE 76–99; RESP 2–28; TEMP 36.4–37.2; O2SAT 90–97; BMI 47.8
[2024-09-08 02:52] LABS: Basophils % 0.2 %; Hematocrit 38.8 % (37-53); Lymphocytes # 0.8 10^3/uL (0.8-4.8); Lymphocytes % 11.6 %; Mean Corpuscular HGB Conc 30.2 g/dL (30-55); Mean Corpuscular Hemoglobin 27.8 pg (27-33); Mean Corpuscular Volume 92.2 fl (82-101); Mean Platelet Volume 9.6 fL (7.4-10.4); Monocytes # 0.1 10^3/uL (0.2-0.9); Monocytes % 1.1 %; Neutrophils # 5.67 10^3/uL (1.8-7.7); Neutrophils % 86.6 %; Nucleated Red Blood Cells % 0 %; Platelet Count 206 10^3/cmm (157-399); Red Blood Count 4.21 10^6/uL (3.85-5.65); Red Cell Distribution Width 13.7 % (12.1-15.1); White Blood Count 6.54 10^3/uL (3.29-11.43)
[2024-09-08 03:16] LABS: Alanine Aminotransferase 35 U/L (0-41); Albumin Level 3.4 g/dL (3.5-5.2); Alkaline Phosphatase 55 U/L (40-130); Anion Gap 19.2 (5-19); Aspartate Amino Transferase 53 U/L (0-40); Blood Urea Nitrogen 47 mg/dL (8-23); C Reactive Protein 70.2 mg/L (0.0-4.9); Calcium 7.7 mg/dL (8.5-10.5); Carbon Dioxide 26 mmol/L (22-29); Chloride 90 mmol/L (98-107); Creatinine Clr Calc Pharmacy 29.1003; Globulin 3.1 g/dL (1.3-4.6); Glucose 235 mg/dL (65-115); Magnesium 2.1 mg/dL (1.7-2.3); Osmolality Calculated 290 mOsm/kg (285-295); Potassium 5.2 mmol/L (3.5-5.1); Sodium 130 mmol/L (136-145); Total Bilirubin 0.2 mg/dL (0.15-1.2); Total Protein 6.5 g/dL (6.6-8.7)
[2024-09-08 03:20] LABS: Partial Thromboplastin Time 198.2 SECONDS (23.9-36.7)
[2024-09-08 04:53] LABS: Arterial Blood Gas Hematocrit 36.5 % (42-52); Base Excess ABG -1.2 mmol/L (-2.0-2.0); Blood Gas Allen Test Pos; Blood Gas Sample Site Radial, left; Blood Gas Sample Type Arterial; HCO3 ABG 28.4 mmol/L (22-26); Oxygen Device BIPAP; PO2 ABG 72.4 mmHg (80.0-100.0); PO2 FiO2 Ratio Arterial Blood 206
[2024-09-08 04:54] LABS: ABG PCO2 73.5 mmHg (35-45)
[2024-09-08 08:01] LABS: Glucose Point of Care 248 mg/dL (70-110)
[2024-09-08 08:02] LABS: ABG PH Result 7.24 (7.35-7.45); Arterial Blood Gas Hematocrit 36.6 % (42-52); Base Excess ABG -0.9 mmol/L (-2.0-2.0); Blood Gas Allen Test Pos; Blood Gas Sample Type Arterial; Carboxyhemoglobin 0.9 %THgb (0.4-20.1); HCO3 ABG 27.6 mmol/L (22-26); HGB O2 Sat 96.8 % (95-100); Ionized Calcium Level - ABG 1.1 mmol/L (1.1-1.4); Methemoglobin 0.4 % (0.4-1.5); Oxygen Saturation ABG 98.2; Potassium Level - ABG 4.9 mmol/L (3.5-5.0)
[2024-09-08 08:03] LABS: Alveolar-Arterial Oxygen Gradi 8.3 mmHg (5-10); Blood Gas Operator Identificat MONRO; Blood Gas Sample Site Radial, left; Oxygen Device BIPAP; PO2 FiO2 Ratio Arterial Blood 314
[2024-09-08 08:04] LABS: ABG PCO2 63.9 mmHg (35-45)
[2024-09-08] MEDS: ipratropium-albuterol 3 mL Neb INHALATION (08:14)
[2024-09-08] MEDS: pantoprazole 40 mg SDV IVP ×2 (09:46→17:23)
[2024-09-08] MEDS: clopidogrel 75 mg Tablet PO (09:46)
[2024-09-08] MEDS: sennosides-docusate Tablet 1 TAB PO (09:46)
[2024-09-08] MEDS: aspirin 81 mg EC Tablet PO (09:46)
[2024-09-08] MEDS: insulin lispro 100 unit/1 mL SUBCUT ×4 (09:46→20:36)
[2024-09-08] MEDS: acetaminophen 500 mg Tablet PO ×2 (09:59→14:54)
[2024-09-08 11:25] LABS: Iron 17 ug/dL (59-158); Percent Saturation 7.4 % (20-50); Procalcitonin 0.61 ng/mL (0-0.5); Total Iron Binding Capacity 229 mcg/dl; Unsaturated Iron Binding 212 ug/dL (112-347); Vitamin B12 228 pg/mL (232-1245)
[2024-09-08 12:13] LABS: Glucose Point of Care 223 mg/dL (70-110)
[2024-09-08] MEDS: sodium chloride 0.9% 1,000 ML 75 ML IV (12:22)
[2024-09-08] MEDS: oseltamivir phosphate 30 mg Capsule PO ×2 (12:22→17:23)
[2024-09-08] MEDS: cyanocobalamin 1,000 mcg/mL SDV 1000 MCG IM (12:23)
[2024-09-08] MEDS: calcium gluconate 0.9% NaCL 1 GM/50 ML PREMIX IV (12:23)
[2024-09-08] MEDS: insulin regular-human 10 UNIT in SYRINGE 1 EACH IVP (12:24)
[2024-09-08] MEDS: dextrose 10% 250 ML 1000 ML IV (12:24)
[2024-09-08] MEDS: methylPREDNISolone sod succ 40 mg/mL INJ 60 MG IVP ×3 (12:42→22:45)
[2024-09-08] MEDS: ipratropium 0.5 mg/2.5 mL Neb INHALATION ×2 (13:52→19:45)
[2024-09-08] MEDS: levalbuterol 0.63 mg/3 mL Neb INHALATION ×2 (13:52→19:44)
[2024-09-08 14:07] LABS: ABG PCO2 55.4 mmHg (35-45); ABG PH Result 7.29 (7.35-7.45); Alveolar-Arterial Oxygen Gradi 13.4 mmHg (5-10); Arterial Blood Gas Hematocrit 34.2 % (42-52); Base Excess ABG -0.6 mmol/L (-2.0-2.0); Blood Gas Allen Test Pos; Blood Gas Operator Identificat MONRO; Blood Gas Sample Site Radial, left; Blood Gas Sample Type Arterial; HCO3 ABG 26.6 mmol/L (22-26); HGB O2 Sat 94.1 % (95-100); Ionized Calcium Level - ABG 1.1 mmol/L (1.1-1.4); Methemoglobin 0.5 % (0.4-1.5); Oxygen Device BIPAP; Oxygen Saturation ABG 95.5; PO2 ABG 79.4 mmHg (80.0-100.0); PO2 FiO2 Ratio Arterial Blood 226; Potassium Level - ABG 4.5 mmol/L (3.5-5.0); Total Hemoglobin 11.2 g/dL (14-18)
--- NOTE | 2024-09-08 15:14 | P.PN_ITS ---
Vitals/I&O/Wt Last Vital Signs Temp 98.3 F 09/08/24 07:45 Pulse 88 09/08/24 13:52 Resp 20 H 09/08/24 13:52 BP 111/64 09/08/24 07:45 Pulse Ox 93 09/08/24 13:52 O2 Del Method BiPAP 09/08/24 13:52 O2 Flow Rate 35 09/08/24 07:45 FiO2 35 09/08/24 13:52 09/08/24 09/08/24 09/08/24 06:59 14:59 22:59 Intake Total 1632.672 / 3932.672 26.750 / 26.750 Output Total 0 / 0 Balance 1632.672 / 3932.672 26.750 / 26.750 Weight last 48 hrs Weight 155.5 kg Weight 155.5 kg Weight 152.407 kg Physical Exam 2 Resp: AUSCULTATION: crackles, wheezes and diminished lung sounds Cardio: COMMON NORMALS: regular rate and regular rhythm RATE: regular rate RHYTHM: regular rhythm Urinary Catheter Management: Ruiz: Cath Placed During This Visit: yes Urinary Catheter Date of Insertion: 09/07/24 Urinary Catheter Time of Insertion: 19:37 Quick SOFA Score: Respiratory Rate: 20 Blood Pressure: 111/64 Vonore Coma Scale: 15 qSOFA Score: 0 If qSOFA score 2 or greater, continue: PaO2/FiO2 Ratio (mmHg): 226 Blood Pressure Mean: 79 Norepinephrine Current Rate (?g/kg/min): 2 Bilirubin (mg/dl): 0.2 Platelets (x10?/ml): 206 Creatinine (mg/dl): 4.1 SOFA Score: 9 Evaluation: Current stage of sepsis: septic shock Sepsis stage criteria used: [facility] Sep-1 and Sepsis-3 Crystalloid fluids: less than 30 mL/kg crystalloid fluids ordered Reasons: a portion of 30 mL/kg crystalloid fluids given as colloids Blood cultures ordered: Yes Possible source: pulmonary Focused Exam: Vital signs: Temp Pulse Resp BP Pulse Ox O2 Del Method O2 Flow Rate 09/08/24 13:52 88 20 H 93 BiPAP 09/08/24 11:42 82 91 09/08/24 09:24 97 95 09/08/24 08:17 88 96 09/08/24 08:15 89 20 H 95 BiPAP 09/08/24 07:45 98.3 F 90 18 111/64 94 BiPAP 35 09/08/24 07:30 88 22 H 103/63 91 BiPAP 35 09/08/24 07:15 76 14 103/63 95 BiPAP 35 09/08/24 07:00 76 17 104/61 93 BiPAP 35 09/08/24 06:45 78 10 L 93/66 97 BiPAP 35 09/08/24 06:00 78 14 98/65 91 BiPAP 09/08/24 05:54 90 09/08/24 05:50 89 95 09/08/24 05:45 78 19 H 120/71 91 BiPAP 09/08/24 05:30 78 3 L 120/67 94 BiPAP 09/08/24 05:15 90 20 H 111/70 92 BiPAP 09/08/24 05:00 93 17 102/60 93 BiPAP 09/08/24 04:45 93 20 H 102/60 92 BiPAP 09/08/24 04:30 97 8 L 102/60 92 BiPAP 09/08/24 04:15 89 12 101/58 91 BiPAP 09/08/24 04:00 98.2 F 90 12 100/59 91 BiPAP 09/08/24 03:45 97 16 104/55 90 BiPAP 09/08/24 03:30 94 16 104/57 90 BiPAP FiO2 09/08/24 13:52 35 09/08/24 11:42 35 09/08/24 09:24 35 09/08/24 08:17 35 09/08/24 08:15 35 09/08/24 07:45 09/08/24 07:30 09/08/24 07:15 09/08/24 07:00 09/08/24 06:45 09/08/24 06:00 35 09/08/24 05:54 09/08/24 05:50 35 09/08/24 05:45 35 09/08/24 05:30 35 09/08/24 05:15 35 09/08/24 05:00 35 09/08/24 04:45 35 09/08/24 04:30 35 09/08/24 04:15 09/08/24 04:00 09/08/24 03:45 09/08/24 03:30 Respiratory exam: crackles present, positive wheezes and diminished lung sounds Cardiovascular exam: regular rate and regular rhythm Date exam was performed: 09/08/24 Time exam was performed: 15:40 2 Sepsis Screen No Definite Risk 09/07/24 20:33 Respiratory Rate 20 breaths/min H (12 - 18) 09/08/24 13:52 Blood Pressure 111/64 mmHg 09/08/24 07:45 Janelle Coma Scale Score 15 09/07/24 22:00 Quick SOFA Score 1 09/07/24 20:33 SOFA Score: 2 ABG PO2/FiO2 Ratio 226 09/08/24 13:54 Vonore Coma Scale Score 15 09/07/24 22:00 Blood Pressure Mean 79 mmHg 09/08/24 07:45 Total Bilirubin 0.2 mg/dL (0.15-1.2) 09/08/24 02:21 Platelet Count 206 10^3/cmm (157-399) 09/08/24 02:21 Creatinine 4.1 mg/dL (0.7-1.2) H 09/08/24 02:21 Data 09/08/24 02:21 09/08/24 02:21 Micro: Microbiology 09/07/24 16:36 Blood Culture - Preliminary Blood SPECIMEN COLLECTED 09/07/24 16:32 Blood Culture - Preliminary Blood SPECIMEN COLLECTED A&P Assessment and plan (1) Septic shock: (2) Acute respiratory failure with hypoxia and hypercapnia: (3) Acute exacerbation of chronic obstructive airways disease: (4) Influenza: (5) Acute and chronic respiratory failure with hypercapnia: (6) Non-STEMI (non-ST elevated myocardial infarction): (7) Acute renal failure: (8) Pneumonia: (9) Type 2 diabetes mellitus: (10) HTN (hypertension): (11) Morbidly obese: (12) Sleep apnea: (13) On home oxygen therapy: Plan Septic shock: SIRS: Tachycardic, Febrile, Source: Pneumonia End organ damage: Acute renal failure Lactic acid elevated Patient received some Toradol full 30 mL/kg BW given concerns for heart failure Monitor blood pressures. Keep mean artery pressure 65 mmHg. Wean Levophed keeping mean arterial pressure less than 70 Follow-up blood culture, urine culture. Check MRSA swab, procalcitonin, urine Legionella, bacterial antigen. Low concerns for bacterial infection for now but as patient is severely sick we will start on treatment for community-acquired pneumonia with azithromycin and ceftriaxone. Will add linezolid if MRSA positive. Strict input charting, daily weights. Monitor urine output. Currently patient does not have Ruiz catheter. Is hesitant. Will try for bladder scan. Patient does not able to pass urine will plan for Ruiz catheterization. Patient is agreeable to the plan. Acute on chronic hypoxic and hypercapnic respiratory failure in setting of COPD exacerbation: Currently BiPAP dependent. Shows mild improvement in hypercapnia. Repeat ABG in 4 hours. Currently having mixed respiratory and metabolic acidosis. Oxygen supplementation keeping saturation less than 88%. Keep NPO. Start on Solu-Medrol 60 mg every 6 hour. Start on Pulmicort twice daily, ipratropium, Xopenex every 6 hours. Influenza A: Treatment of COPD as above. Supportive treatment. Aggressive pulmonary toilet. Start on Tamiflu 30 mg Q12 hourly as per creatinine clearance. Non-ST elevation HI: Baseline troponin of 480 with negative delta Denies any active chest pain for now. Check limited echocardiogram. Continue with heparin drip. Aspirin, statin. Check A1c, lipid panel. CRISPIN: Baseline creatinine normal. Admitting creatinine more than 3. Concerns for metabolic acidosis. CT abdomen pelvis negative for obstructive nephropathy. Most likely in setting of severe sepsis along with respiratory distress. Along with home use of ibuprofen, lisinopril. Concerns for urinary retention as well. Medical reconciliation done for nephrotoxic drugs. Monitor BMP every 12 hours. Check urine lites, urine creatinine, urine eosinophils. Full code N.p.o. Heparin drip will be sufficient for DVT prophylaxis Protonix OPD prophylaxis Attestations 2 Medical Necessity Statement*: Requires further hospitalization for management of septic shock, acute on chronic hypoxic and hypercapnic respiratory failure in setting of COPD exacerbation from influenza A, renal failure, non-ST elevation HI Critical Care Time: The high probability of a clinically significant, sudden or life threatening deterioration of the patient's [pulmonary, cardiac, renal] system(s) required my full and direct attention, intervention and personal management. The critical care time is as shown. This time is in addition to time spent performing any reported procedures but includes the following: [x] Data and vital sign review and interpretation [x] Patient assessment, examination and intervention [x] Documentation [x] Medication orders and management Critical Care Time (min): 70 Coding Level of Care Code Critical Care >/= 30 minutes Critical care time (in minutes): 70 The high probability of a clinically significant, sudden or life threatening deterioration, as referenced in this documentation, required my full and direct attention, intervention and personal management. The critical care time shown is in addition to time spent performing any reported separately billable procedures and includes the following: [x] Data and vital sign review and interpretation [x ] Patient assessment, examination and intervention [x] Medication orders and management [x] Patient/Family updates as able [x] Care Coordination and Documentation. Other Coding Information This patient has a high probability of clinically significant, sudden or life threatening deterioration of the patient's (neurological/pulmonary/cardiac/renal/ID/endocrine) systems required my full, direct attention, the highest level of physician preparedness for urgent intervention and personal management. I managed/supervised life or organ supporting interventions that required frequent physician assessment. I devoted my full attention in the ICU to the direct care of this patient for the period of time indicated above. Time I spent with family or surrogate(s) is included only if the patient was incapable of providing necessary information or participating in decision making. This time includes the following services provided: Telemetry review Nonmechanical Ventilation Hemodynamic interpretation, assessment and management Review and interpretation of CXR Review and interpretation of lab values Review and interpretation of microbiologic data and culture results Review of medications and administration Review and interpretation of Nutrition requirements and management Discussion of management with other consultants and services Clinical update to family members Diagnoses Septic shock A41.9; R65.21 Acute respiratory failure with hypoxia and hypercapnia J96.01; J96.02 Acute exacerbation of chronic obstructive airways disease J44.1 Influenza J11.1 Acute and chronic respiratory failure with hypercapnia J96.22 Non-STEMI (non-ST elevated myocardial infarction) I21.4 Acute renal failure N17.9 Pneumonia J18.9 Type 2 diabetes mellitus E11.9 HTN (hypertension) I10 Morbidly obese E66.01 Sleep apnea G47.30 On home oxygen therapy Z99.81
[2024-09-08 15:51] LABS: Anion Gap 18.7 (5-19); Blood Urea Nitrogen 55 mg/dL (8-23); Calcium 8.1 mg/dL (8.5-10.5); Carbon Dioxide 24 mmol/L (22-29); Chloride 88 mmol/L (98-107); Creatinine Clr Calc Pharmacy 24.8565; Glomerular Filtration Rate 12.5 mL/min (90-130); Glucose 179 mg/dL (65-115); Osmolality Calculated 282 mOsm/kg (285-295); Potassium 4.7 mmol/L (3.5-5.1); Sodium 126 mmol/L (136-145)
[2024-09-08 15:53] LABS: Potassium, Radom Urine 26 mmol/L; Urine Creatinine 158 mg/dL (39-259); Urine Random Sodium 25 mmol/L
[2024-09-08 15:54] LABS: Urine Random Chloride 10 mmol/L
[2024-09-08 16:13] LABS: Eosinophil Urine No Eosinophils Seen; Urine Eosinophil Count 0 (0-0)
[2024-09-08 16:49] LABS: MRSA PCR OZH (swab) NOT DETECTED (Negative)
[2024-09-08] MEDS: azithromycin 250 mg Tablet 500 MG PO (17:23)
[2024-09-08] MEDS: cefTRIAXone 1,000 mg SDV 1000 MG IVP (17:24)
[2024-09-08 17:42] LABS: Glucose Point of Care 240 mg/dL (70-110)
--- NOTE | 2024-09-08 18:44 | PC.NURSE ---
Shift summary: Pt rested in bed throughout shift. He remains alert and oriented x 4. He has worn the BIpap ( APVAPS setting) for majority of shift. He utilized 5lpm/NC for breakfast and dinner. Fio2 is now at 35%. HIs Blood gas is improving. Lungs sounded clear and diminished, difficult at times to auscultate due to habitus. Heparin gtt stopped today. Levophed has been off and on this shift, mid afternoon Dr Girard ordered MAP greater than 70, leave Levophed on, may decrease if MAPS greater than 75. He received 1 gram Calcium, D10% adn reg insulin IV to reduce his potassium levels. He hadn't urinated by 1330, bladder scanned. 141 ml of urine scanned. Ruiz cath ordered. Pt at first refused, He then agreed, 12 fr used for his comfort. He did not have much return, but some was sent for Legionella testing. 240 ml of bright yellow urine output noted this shift. He has complained of back pain, Acetaminophen admin twice this shift. He reported relief from his pain medication.
[2024-09-08] MEDS: budesonide 0.5 mg/2 mL Neb INHALATION (19:45)
[2024-09-08 20:36] LABS: Glucose Point of Care 268 mg/dL (70-110)
--- NOTE | 2024-09-08 20:50 | USCV_ITS ---
Walter Medina Age: 59 Gender: M : 1965 Exam Date: 09/08/2024 10:34 Ordering Phys: Blanka Mahmood MD Technologist: Edi Farias Exam Location: [facility] Indication: wall motion BP: 99 / 52 HR: Rhythm: Sinus Technical Quality: Adequate MEASUREMENTS (Male / Female) Normal Values 2D ECHO LVOT Diameter 2.1 cm LV Ejection Fraction MOD 4C 82.8 % LV Ejection Fraction MOD 2C 66.0 % LV Ejection Fraction 2C AL 65.1 % LA Diameter 4.3 cm Aorta at Sinotubular Diameter 2.7 cm IVC Diameter 2.8 cm M-MODE LA Ao Ratio MM 1.1 AV Cusp Separation MM 1.8 cm FINDINGS Left Ventricle Possibly normal LV size and ejection fraction of 70%. Segmental wall motion analysis difficult because of poor ultrasonic windows. The basal inferolateral segment appears to be somewhat hypokinetic. Right Ventricle The RV appears to be mildly dilated. Could not visualize well Right Atrium ? Mildly dilated. Difficult to visualize well Left Atrium Possibly of normal size Mitral Valve No gross abnormalities noted Aortic Valve Could not be visualized well Tricuspid Valve No gross abnormalities Pulmonic Valve Pulmonic valve not well visualized. Pericardium No pericardial effusion. Aorta Normal aortic annulus size. IVC Dilated IVC with decreased respiratory variation. CONCLUSIONS Possibly normal LV size and ejection fraction of 70%. Segmental wall motion analysis difficult because of poor ultrasonic windows. The basal inferolateral segment appears to be somewhat hypokinetic. The right atrium and the right angle appears to be mildly dilated. Right sided structures could not be visualized well. No gross morphologic abnormalities in the tricuspid and mild mitral valves. There is no pericardial effusion. Dilated IVC with decreased respiratory variation, suggesting right atrial pressure around 15 mmHg Comparison with the previous study is difficult because of the difference in the technical quality. Dr Dell Patel MD [facility] (Electronically Signed) Final Date: 08 September 2024 15:08 S
[2024-09-09] VITALS (39 sets, daily range): BP systolic 109–160; BP diastolic 65–114; PULSE 81–104; RESP 14–27; TEMP 36.2–36.9; O2SAT 90–97; BMI 47.8
[2024-09-09] MEDS: acetaminophen 500 mg Tablet PO (00:08)
[2024-09-09] MEDS: levalbuterol 0.63 mg/3 mL Neb INHALATION ×4 (02:17→20:13)
[2024-09-09] MEDS: ipratropium 0.5 mg/2.5 mL Neb INHALATION ×4 (02:17→20:12)
[2024-09-09] MEDS: methylPREDNISolone sod succ 40 mg/mL INJ 60 MG IVP ×4 (05:46→22:26)
[2024-09-09 05:57] LABS: Basophils % 0.1 %; Hematocrit 35.7 % (37-53); Lymphocytes % 10.5 %; Mean Corpuscular HGB Conc 31.7 g/dL (30-55); Mean Corpuscular Hemoglobin 28.3 pg (27-33); Mean Corpuscular Volume 89.5 fl (82-101); Mean Platelet Volume 9.9 fL (7.4-10.4); Monocytes # 0.4 10^3/uL (0.2-0.9); Monocytes % 4.1 %; Neutrophils # 8.13 10^3/uL (1.8-7.7); Neutrophils % 84.9 %; Nucleated Red Blood Cells % 0 %; Platelet Count 202 10^3/cmm (157-399); Red Blood Count 3.99 10^6/uL (3.85-5.65); Red Cell Distribution Width 13.2 % (12.1-15.1); White Blood Count 9.58 10^3/uL (3.29-11.43)
[2024-09-09 06:23] LABS: Alanine Aminotransferase 34 U/L (0-41); Albumin Level 3.4 g/dL (3.5-5.2); Alkaline Phosphatase 49 U/L (40-130); Anion Gap 19.9 (5-19); Aspartate Amino Transferase 35 U/L (0-40); Blood Urea Nitrogen 65 mg/dL (8-23); Calcium 8.1 mg/dL (8.5-10.5); Carbon Dioxide 24 mmol/L (22-29); Chloride 92 mmol/L (98-107); Chol HDL Ratio 3.06 mg/dL (1.0-5.00); Cholesterol 107 mg/dL (0-200); Creatinine Clr Calc Pharmacy 23.8622; Globulin 3.2 g/dL (1.3-4.6); Glomerular Filtration Rate 11.9 mL/min (90-130); Glucose 259 mg/dL (65-115); HDL Cholesterol 35 mg/dL (60-100); LDL Cholesterol Calculated 54 mg/dL (50-129); Magnesium 2.1 mg/dL (1.7-2.3); Osmolality Calculated 300 mOsm/kg (285-295); Potassium 4.9 mmol/L (3.5-5.1); Sodium 131 mmol/L (136-145); Total Bilirubin 0.2 mg/dL (0.15-1.2); Total Protein 6.6 g/dL (6.6-8.7); Triglycerides 89 mg/dL (0-150); VLDL Cholestrol Calculation 18 mg/dL (0-30)
[2024-09-09 06:38] LABS: Folate Level 6.6 ng/mL (4.5-32.2)
--- NOTE | 2024-09-09 07:21 | XRR_ITS ---
PROCEDURE INFORMATION: Exam: XR Chest Exam date and time: 09/09/2024 8:45 AM Age: 59 years old Clinical indication: Hyperventilation; Additional info: Hypoxia TECHNIQUE: Imaging protocol: Radiologic exam of the chest. Views: 1 view. COMPARISON: [place] [id number] 09/07/2024 5:48 PM FINDINGS: Lungs: There are minimal ill-defined scattered opacities in the mid to lower lung bales bilaterally. Pleural spaces: Costophrenic angles are not optimally visualized and small pleural effusions cannot be excluded. Heart/Mediastinum: The left heart border is obscured by the left hemidiaphragm. Diaphragm: There is elevation of the left hemidiaphragm which was seen on the prior study as well. Bones/joints: Unremarkable. XR/XR chest 1V portable [id number] IMPRESSION: Minimal ill-defined scattered opacities in the mid to lower bilateral lung bales are nonspecific. Differential includes atelectasis and pneumonia.
[2024-09-09] MEDS: FUROsemide 10 mg/mL SDV 10mL 60 MG IVP (07:40)
[2024-09-09] MEDS: budesonide 0.5 mg/2 mL Neb INHALATION ×2 (08:05→20:12)
[2024-09-09 08:12] LABS: Glucose Point of Care 243 mg/dL (70-110)
[2024-09-09 08:16] LABS: ABG PCO2 58.5 mmHg (35-45); ABG PH Result 7.25 (7.35-7.45); Arterial Blood Gas Hematocrit 36.1 % (42-52); Base Excess ABG -2.5 mmol/L (-2.0-2.0); Blood Gas Allen Test Pos; Blood Gas Sample Type Arterial; Carboxyhemoglobin 0.7 %THgb (0.4-20.1); HCO3 ABG 25.5 mmol/L (22-26); Ionized Calcium Level - ABG 1.1 mmol/L (1.1-1.4); Methemoglobin 1.3 % (0.4-1.5); Oxygen Saturation ABG 97.9; Potassium Level - ABG 4.6 mmol/L (3.5-5.0); Total Hemoglobin 11.8 g/dL (14-18)
[2024-09-09 08:17] LABS: Alveolar-Arterial Oxygen Gradi 13.6 mmHg (5-10); Blood Gas Operator Identificat MONRO; Blood Gas Sample Site Radial, right; Oxygen Device NC; PO2 FiO2 Ratio Arterial Blood 277
[2024-09-09] MEDS: insulin lispro 100 unit/1 mL SUBCUT ×4 (09:22→20:16)
[2024-09-09] MEDS: azithromycin 250 mg Tablet 500 MG PO (09:23)
[2024-09-09] MEDS: sennosides-docusate Tablet 1 TAB PO (09:23)
[2024-09-09] MEDS: aspirin 81 mg EC Tablet PO (09:23)
[2024-09-09] MEDS: clopidogrel 75 mg Tablet PO (09:23)
[2024-09-09] MEDS: cyanocobalamin 1,000 mcg/mL SDV 1000 MCG IM (09:23)
[2024-09-09] MEDS: pantoprazole 40 mg SDV IVP ×2 (09:23→17:46)
[2024-09-09 11:14] LABS: Glucose Point of Care 252 mg/dL (70-110)
[2024-09-09] MEDS: heparin drip 25,000 UNIT/500 ML PREMIX 43.5 UNIT IV (11:39)
--- NOTE | 2024-09-09 15:14 | P.PN_ITS ---
Subjective 2 Subjective: No acute events overnight. Patient has remained hemodynamically stable and afebrile. Seen with spouse at bedside. Patient has tolerated BiPAP well overnight. Today morning was transitioned over to 5 L of oxygen supplementation. Vitals/I&O/Wt Last Vital Signs Temp 98.5 F 09/09/24 04:00 Pulse 98 09/09/24 14:40 Resp 22 H 09/09/24 13:48 BP 123/83 09/09/24 06:30 Pulse Ox 95 09/09/24 13:48 O2 Del Method Nasal Cannula 09/09/24 13:48 O2 Flow Rate 4 09/09/24 13:48 FiO2 35 09/09/24 09:50 09/09/24 09/09/24 09/09/24 06:59 14:59 22:59 Intake Total 960 / 2712.350 404.688 / 404.688 Output Total 700 / 700 850 / 850 Balance 260 / 2012.350 -445.312 / -445.312 Weight last 48 hrs Weight 155.5 kg Weight 155.5 kg Weight 155.5 kg Weight 155.5 kg Weight 152.407 kg Physical Exam 2 Narrative: General: No acute distress, AO x3, morbidly obese on full face mask BiPAP HEENT: PERRLA, pupils bilaterally equal and reactive Chest: Bilateral bronchial breath sounds all over lung bales with occasional rhonchi right more than left CVS: S1-S2 regular, no murmurs, no tachycardia, no gallops, no rubs Abdomen: Soft, nontender, no organomegaly, bowel sounds present Neuro: No focal deficits, no facial deformity, AO x3, power 5/5 in all limbs Resp: AUSCULTATION: crackles, wheezes and diminished lung sounds Cardio: COMMON NORMALS: regular rate and regular rhythm RATE: regular rate RHYTHM: regular rhythm Urinary Catheter Management: Ruiz: Cath Placed During This Visit: yes Reason for Continuing Indwelling Catheter: Accurate Measurement of Urinary Output in Critically Ill Patients Urinary Catheter Date of Insertion: 09/07/24 Urinary Catheter Time of Insertion: 19:37 Data 09/09/24 05:51 09/09/24 05:51 Micro: Microbiology 09/08/24 15:05 Bacterial Antigens - Final Urine Kidney 09/07/24 16:36 Blood Culture - Preliminary Blood NEGATIVE TO DATE 09/07/24 16:32 Blood Culture - Preliminary Blood NEGATIVE TO DATE 09/08/24 15:05 Legionella Urinary Antigen - Final Unknown Source A&P Assessment and plan (1) Septic shock: (2) Acute respiratory failure with hypoxia and hypercapnia: (3) Acute exacerbation of chronic obstructive airways disease: (4) Influenza: (5) Acute and chronic respiratory failure with hypercapnia: (6) Non-STEMI (non-ST elevated myocardial infarction): (7) Acute renal failure: (8) Pneumonia: (9) Type 2 diabetes mellitus: (10) HTN (hypertension): (11) Morbidly obese: (12) Sleep apnea: (13) On home oxygen therapy: Plan Septic shock: Resolved. Levophed weaned off. Keep mean artery pressure 65. Sepsis: SIRS: Tachycardic, Febrile, Source: Pneumonia End organ damage: Acute renal failure Lactic acid elevated Patient received some of the full 30 mL/kg BW given concerns for heart failure on admission. Follow-up blood culture, urine culture. MRSA swab negative, appreciate procalcitonin, negative urine Legionella and bacterial antigen. Collect sputum culture when possible. Low concerns for bacterial infection for now but as patient is severely sick we will start on treatment for community-acquired pneumonia with azithromycin and ceftriaxone. Strict input charting, daily weights. Monitor urine output. Ruiz catheter. Patient overall net positive. IV Lasix 60 mg one-time. Fluid restriction to less than 1500 cc. Acute on chronic hypoxic and hypercapnic respiratory failure in setting of COPD exacerbation: Fluid improving. Continue with BiPAP nightly. Oxygen supplementation keeping saturation over 88%. Diet advanced. Continue with Solu-Medrol 60 mg every 6 hour. Will plan to wean within next 24 hours. Start on Pulmicort twice daily, ipratropium, Xopenex every 6 hours. Influenza A: Treatment of COPD as above. Supportive treatment. Aggressive pulmonary toilet. Continue Tamiflu. Change dose to daily depending on creatinine clearance. Non-ST elevation VA: Appreciate Limited echocardiogram. Concerns for possible regional wall motion abnormality in inferior lateral region Continue with heparin drip. Will plan for Lexiscan stress test once patient is more clinically stable. Continue with aspirin, statin. Hold off on beta-herbert for now given patient having septic shock in last 24 hours. Appreciate A1c, lipid panel. CRISPIN: Baseline creatinine normal. Creatinine continue to worsen. 5 today. Concerns for metabolic acidosis. CT abdomen pelvis negative for obstructive nephropathy. Most likely in setting of severe sepsis along with respiratory distress. Along with home use of ibuprofen, lisinopril. Concerns for urinary retention as well. IV Lasix as above. Strict input output charting. Medical reconciliation done for nephrotoxic drugs. Repeat BMP in afternoon. Appreciate urine lites, urine creatinine, urine eosinophils. If continues to worsen will plan to consult nephrology. Continue with home dose of statin, change gabapentin to 200 mg twice daily depending on creatinine clearance. Will continue care in ICU for now. Full code Carb consistent cardiac diet, fluid restriction to less than 1500 cc Heparin drip will be sufficient for DVT prophylaxis Protonix OPD prophylaxis Attestations 2 Medical Necessity Statement*: Requires further hospitalization for management of acute on chronic hypoxic and hypercapnic respiratory failure in setting of influenza, sepsis, acute kidney injury as patient is requiring more persistent BiPAP, non-ST elevation VA Diagnoses Septic shock A41.9; R65.21 Acute respiratory failure with hypoxia and hypercapnia J96.01; J96.02 Acute exacerbation of chronic obstructive airways disease J44.1 Influenza J11.1 Acute and chronic respiratory failure with hypercapnia J96.22 Non-STEMI (non-ST elevated myocardial infarction) I21.4 Acute renal failure N17.9 Pneumonia J18.9 Type 2 diabetes mellitus E11.9 HTN (hypertension) I10 Morbidly obese E66.01 Sleep apnea G47.30 On home oxygen therapy Z99.81
[2024-09-09 15:50] LABS: Anion Gap 19.8 (5-19); Blood Urea Nitrogen 70 mg/dL (8-23); Calcium 8.1 mg/dL (8.5-10.5); Carbon Dioxide 26 mmol/L (22-29); Chloride 90 mmol/L (98-107); Creatinine Clr Calc Pharmacy 27.1162; Glomerular Filtration Rate 13.8 mL/min (90-130); Glucose 282 mg/dL (65-115); Osmolality Calculated 303 mOsm/kg (285-295); Potassium 4.8 mmol/L (3.5-5.1); Sodium 131 mmol/L (136-145)
[2024-09-09 17:18] LABS: Glucose Point of Care 333 mg/dL (70-110)
[2024-09-09] MEDS: oseltamivir phosphate 30 mg Capsule PO (17:21)
[2024-09-09] MEDS: gabapentin 100 mg Capsule PO (17:21)
[2024-09-09] MEDS: cefTRIAXone 1,000 mg SDV 1000 MG IVP (17:22)
[2024-09-09 19:04] LABS: Partial Thromboplastin Time 108.9 SECONDS (23.9-36.7)
--- NOTE | 2024-09-09 19:06 | PC.NURSE ---
Shift summary: Pt stated today he feels much better. He was not a fan of his BiPap mask, RT changed it out to a full mask, he stated he could use this one. He was using O2 at 5lpm/NC starting this am. He Used the Bipap mask for less than 2 hours later morning. He got out of bed this am prior to breakfast. He was stable on his feet, only needing assistance with the monitoring wires and tubes. He stayed up in chair until 1600, tolerated it well. He is appetite is exceptional, he eats all of his meal trays. He was started on a fluid restriction of 1500ml this afternoon. He received Lasix IV this am. His urine output was 2800ml today. He is still positive in fluids. He used BSC today, flatulence only noted. Heparin gtt started today. first PTT drawn but not resulted as of shift report.
[2024-09-09 21:15] LABS: Glucose Point of Care 392 mg/dL (70-110)
[2024-09-10] VITALS (27 sets, daily range): BP systolic 105–162; BP diastolic 60–108; PULSE 78–109; RESP 16–26; TEMP 36.2–36.9; O2SAT 88–96
[2024-09-10] MEDS: heparin drip 25,000 UNIT/500 ML PREMIX 33.5 UNIT IV (01:03)
[2024-09-10] MEDS: ipratropium 0.5 mg/2.5 mL Neb INHALATION ×4 (02:09→20:30)
[2024-09-10] MEDS: levalbuterol 0.63 mg/3 mL Neb INHALATION ×4 (02:10→20:30)
[2024-09-10 02:29] LABS: Hematocrit 35.8 % (37-53); Lymphocytes # 0.9 10^3/uL (0.8-4.8); Lymphocytes % 8.8 %; Mean Corpuscular HGB Conc 31.8 g/dL (30-55); Mean Corpuscular Hemoglobin 28.3 pg (27-33); Mean Corpuscular Volume 88.8 fl (82-101); Mean Platelet Volume 9.8 fL (7.4-10.4); Monocytes # 0.4 10^3/uL (0.2-0.9); Monocytes % 4.6 %; Neutrophils # 8.31 10^3/uL (1.8-7.7); Nucleated Red Blood Cells % 0 %; Platelet Count 224 10^3/cmm (157-399); Red Blood Count 4.03 10^6/uL (3.85-5.65); Red Cell Distribution Width 13.2 % (12.1-15.1); White Blood Count 9.66 10^3/uL (3.29-11.43)
[2024-09-10 02:50] LABS: Magnesium 2.2 mg/dL (1.7-2.3)
[2024-09-10 02:52] LABS: Partial Thromboplastin Time 146.5 SECONDS (23.9-36.7)
[2024-09-10 02:53] LABS: Alanine Aminotransferase 30 U/L (0-41); Albumin Level 3.6 g/dL (3.5-5.2); Alkaline Phosphatase 50 U/L (40-130)
[2024-09-10 03:03] LABS: Aspartate Amino Transferase 23 U/L (0-40); Blood Urea Nitrogen 67 mg/dL (8-23); Carbon Dioxide 27 mmol/L (22-29); Creatinine Clr Calc Pharmacy 35.0915; Globulin 2.9 g/dL (1.3-4.6); Glomerular Filtration Rate 18.6 mL/min (90-130); Glucose 373 mg/dL (65-115); Total Bilirubin 0.2 mg/dL (0.15-1.2); Total Protein 6.5 g/dL (6.6-8.7)
[2024-09-10 03:04] LABS: Chloride 95 mmol/L (98-107); Osmolality Calculated 311 mOsm/kg (285-295); Sodium 133 mmol/L (136-145)
[2024-09-10] MEDS: methylPREDNISolone sod succ 40 mg/mL INJ 60 MG IVP ×3 (05:19→16:44)
[2024-09-10 07:53] LABS: Glucose Point of Care 298 mg/dL (70-110)
[2024-09-10] MEDS: insulin lispro 100 unit/1 mL SUBCUT ×4 (08:31→21:24)
[2024-09-10] MEDS: aspirin 81 mg EC Tablet PO (08:31)
[2024-09-10] MEDS: sennosides-docusate Tablet 1 TAB PO (08:32)
[2024-09-10] MEDS: clopidogrel 75 mg Tablet PO (08:32)
[2024-09-10] MEDS: atorvastatin 40 mg Tablet 20 MG PO (08:32)
[2024-09-10] MEDS: azithromycin 250 mg Tablet 500 MG PO (08:32)
[2024-09-10] MEDS: gabapentin 100 mg Capsule PO ×2 (08:39→17:42)
[2024-09-10] MEDS: pantoprazole 40 mg SDV IVP ×2 (08:40→17:42)
[2024-09-10] MEDS: cyanocobalamin 1,000 mcg/mL SDV 1000 MCG IM (08:43)
[2024-09-10] MEDS: FUROsemide 10 mg/mL SDV 10mL 60 MG IVP (08:46)
[2024-09-10] MEDS: budesonide 0.5 mg/2 mL Neb INHALATION ×2 (09:28→20:29)
[2024-09-10 10:12] LABS: Partial Thromboplastin Time 117.9 SECONDS (23.9-36.7)
[2024-09-10 11:35] LABS: Glucose Point of Care 410 mg/dL (70-110)
[2024-09-10] MEDS: insulin glargine 100 units/1 mL 10 UNIT SUBCUT (12:13)
--- NOTE | 2024-09-10 14:39 | P.PN_ITS ---
Subjective 2 Subjective: No acute events overnight. Today morning patient seen sitting up in recliner. States he is feeling a lot better. Patient tolerated BiPAP well overnight. Currently down to 3 to 4 L of oxygen supplementation. Denies any nausea, vomiting, headache. Vitals/I&O/Wt Last Vital Signs Temp 98.2 F 09/10/24 12:00 Pulse 93 09/10/24 13:38 Resp 20 H 09/10/24 13:30 BP 134/90 09/10/24 12:00 Pulse Ox 93 09/10/24 13:30 O2 Del Method Nasal Cannula 09/10/24 13:30 O2 Flow Rate 3 09/10/24 13:30 FiO2 30 09/10/24 03:52 09/09/24 09/10/24 09/10/24 22:59 06:59 14:59 Intake Total 351.625 / 956.313 342.933 / 1299.246 477.292 / 477.292 Output Total 850 / 2800 2500 / 5300 1375 / 1375 Balance -498.375 / -1843.687 -2157.067 / -4000.754 -897.708 / -897.708 Weight last 48 hrs Weight 154.278 kg Weight 155.5 kg Weight 155.5 kg Physical Exam 2 Narrative: General: No acute distress, AO x3, morbidly obese on nasal cannula HEENT: PERRLA, pupils bilaterally equal and reactive Chest: Bilateral bronchial breath sounds all over lung bales with occasional rhonchi right more than left CVS: S1-S2 regular, no murmurs, no tachycardia, no gallops, no rubs Abdomen: Soft, nontender, no organomegaly, bowel sounds present Neuro: No focal deficits, no facial deformity, AO x3, power 5/5 in all limbs Resp: AUSCULTATION: crackles, wheezes and diminished lung sounds Cardio: COMMON NORMALS: regular rate and regular rhythm RATE: regular rate RHYTHM: regular rhythm Urinary Catheter Management: Ruiz: Cath Placed During This Visit: yes Reason for Continuing Indwelling Catheter: Accurate Measurement of Urinary Output in Critically Ill Patients Urinary Catheter Date of Insertion: 09/07/24 Urinary Catheter Time of Insertion: 19:37 Data 09/10/24 02:09 09/10/24 02:09 A&P Assessment and plan (1) Septic shock: (2) Acute respiratory failure with hypoxia and hypercapnia: (3) Acute exacerbation of chronic obstructive airways disease: (4) Influenza: (5) Acute and chronic respiratory failure with hypercapnia: (6) Non-STEMI (non-ST elevated myocardial infarction): (7) Acute renal failure: (8) Pneumonia: (9) Type 2 diabetes mellitus: (10) HTN (hypertension): (11) Morbidly obese: (12) Sleep apnea: (13) On home oxygen therapy: Plan Septic shock: Resolved. Levophed weaned off. Keep mean artery pressure 65. Sepsis: SIRS: Tachycardic, Febrile, Source: Pneumonia End organ damage: Acute renal failure Lactic acid elevated Patient received some of the full 30 mL/kg BW given concerns for heart failure on admission. Follow-up blood culture, urine culture. MRSA swab negative, appreciate procalcitonin, negative urine Legionella and bacterial antigen. Collect sputum culture when possible. Low concerns for bacterial infection for now but as patient is severely sick we will start on treatment for community-acquired pneumonia with azithromycin and ceftriaxone. Strict input charting, daily weights. Monitor urine output. Ruiz catheter. Patient overall net positive. IV Lasix 60 mg one-time. Fluid restriction to less than 1500 cc. Acute on chronic hypoxic and hypercapnic respiratory failure in setting of COPD exacerbation: Fluid improving. Continue with BiPAP nightly. Oxygen supplementation keeping saturation over 88%. Diet advanced. Continue with Solu-Medrol 60 mg every 6 hour. Will plan to wean within next 24 hours. Start on Pulmicort twice daily, ipratropium, Xopenex every 6 hours. Influenza A: Treatment of COPD as above. Supportive treatment. Aggressive pulmonary toilet. Continue Tamiflu. Change dose to daily depending on creatinine clearance. Non-ST elevation LA: Appreciate Limited echocardiogram. Concerns for possible regional wall motion abnormality in inferior lateral region Continue with heparin drip. Will plan for Lexiscan stress test once patient is more clinically stable. Continue with aspirin, statin. Hold off on beta-herbert for now given patient having septic shock in last 24 hours. Appreciate A1c, lipid panel. CRISPIN: Baseline creatinine normal. Creatinine continue to worsen. 5 today. Concerns for metabolic acidosis. CT abdomen pelvis negative for obstructive nephropathy. Most likely in setting of severe sepsis along with respiratory distress. Along with home use of ibuprofen, lisinopril. Concerns for urinary retention as well. IV Lasix as above. Strict input output charting. Medical reconciliation done for nephrotoxic drugs. Repeat BMP in afternoon. Appreciate urine lites, urine creatinine, urine eosinophils. If continues to worsen will plan to consult nephrology. Continue with home dose of statin, change gabapentin to 200 mg twice daily depending on creatinine clearance. Plan for the day: Blood pressure stable. Levophed weaned off. Pressure has maintained over 65. Continue to wean oxygen supplementation keeping saturation over 88%. BiPAP as needed. Aggressive pulmonary toilet. Wean Solu-Medrol 60 mg every 8 hours. Continue with Pulmicort and Xopenex, ipratropium every 6 hour. Continue with Tamiflu. Dose as per creatinine clearance. Renal functions improving today. Down to 3.4. Good response to Lasix yesterday. Will plan for 60 mg of IV Lasix again. Continued Ruiz catheter. Patient complaining of discomfort with Ruiz catheter. Add Pyridium 3 times daily for next 3 days. Add Flomax 0.4 daily. Continue with heparin drip. She denies any chest pain. Continue with aspirin, Plavix, statin. Appreciate echocardiogram results. Plan for Lexiscan stress test in AM. N.p.o. from midnight. Blood sugars elevated today morning. Continue with current insulin sliding scale. Most likely in setting of steroids. Add Lantus 10 units every morning. Will continue care in ICU for now. Full code Carb consistent cardiac diet, fluid restriction to less than 1500 cc Heparin drip will be sufficient for DVT prophylaxis Protonix OPD prophylaxis Attestations 2 Medical Necessity Statement*: Requires further hospitalization for management of acute on chronic hypoxic and hypercapnic respiratory failure in setting of influenza, non-ST elevation LA, CRISPIN Diagnoses Septic shock A41.9; R65.21 Acute respiratory failure with hypoxia and hypercapnia J96.01; J96.02 Acute exacerbation of chronic obstructive airways disease J44.1 Influenza J11.1 Acute and chronic respiratory failure with hypercapnia J96.22 Non-STEMI (non-ST elevated myocardial infarction) I21.4 Acute renal failure N17.9 Pneumonia J18.9 Type 2 diabetes mellitus E11.9 HTN (hypertension) I10 Morbidly obese E66.01 Sleep apnea G47.30 On home oxygen therapy Z99.81
--- NOTE | 2024-09-10 14:43 | ECG_ITS ---
[facility] Test Date: 2024-09-11 Pat Name: Walter Medina Department: Room: [facility] Gender: Male Subsorter: : 1965 Requested By: Octavio Lainez Order Number: [id number] Melody MD: FAWN TUTTLE Interpretive Statements Lung unchanged pre/post procedure; Intraprocedure shortess of breath; Symptoms resoled by discharge [id number]
[2024-09-10] MEDS: phenazopyridine 100 mg Tablet PO ×2 (15:26→17:42)
[2024-09-10] MEDS: tamsulosin 0.4 mg Capsule PO (15:26)
[2024-09-10] MEDS: cefTRIAXone 1,000 mg SDV 1000 MG IVP (16:46)
[2024-09-10 17:38] LABS: Anion Gap 18.6 (5-19); Blood Urea Nitrogen 63 mg/dL (8-23); Calcium 8.2 mg/dL (8.5-10.5); Carbon Dioxide 30 mmol/L (22-29); Chloride 95 mmol/L (98-107); Glomerular Filtration Rate 34.3 mL/min (90-130); Glucose 431 mg/dL (65-115); Osmolality Calculated 324 mOsm/kg (285-295); Potassium 4.6 mmol/L (3.5-5.1); Sodium 139 mmol/L (136-145)
[2024-09-10] MEDS: oseltamivir phosphate 30 mg Capsule PO (17:42)
[2024-09-10 17:47] LABS: Glucose Point of Care 346 mg/dL (70-110)
[2024-09-10 18:01] LABS: Partial Thromboplastin Time 47.8 SECONDS (23.9-36.7)
--- NOTE | 2024-09-10 20:11 | PC.NURSE ---
Patient transferred to [facility] at 1999.
[2024-09-10 20:48] LABS: Glucose Point of Care 438 mg/dL (70-110)
[2024-09-11] VITALS (14 sets, daily range): BP systolic 122–150; BP diastolic 56–90; PULSE 71–95; RESP 18–27; TEMP 36.6–37.2; O2SAT 93–98
[2024-09-11 00:58] LABS: Lymphocytes # 0.8 10^3/uL (0.8-4.8); Lymphocytes % 8.1 %; Mean Corpuscular HGB Conc 31.4 g/dL (30-55); Mean Corpuscular Hemoglobin 27.7 pg (27-33); Mean Corpuscular Volume 88.2 fl (82-101); Mean Platelet Volume 9.9 fL (7.4-10.4); Monocytes # 0.7 10^3/uL (0.2-0.9); Neutrophils % 84.7 %; Nucleated Red Blood Cells % 0 %; Platelet Count 239 10^3/cmm (157-399); Red Blood Count 4.08 10^6/uL (3.85-5.65); Red Cell Distribution Width 13.3 % (12.1-15.1); White Blood Count 9.45 10^3/uL (3.29-11.43)
[2024-09-11] MEDS: methylPREDNISolone sod succ 40 mg/mL INJ 60 MG IVP ×2 (01:07→09:11)
[2024-09-11 01:19] LABS: Partial Thromboplastin Time 42.9 SECONDS (23.9-36.7)
[2024-09-11 01:24] LABS: Alanine Aminotransferase 37 U/L (0-41); Albumin Level 3.4 g/dL (3.5-5.2); Alkaline Phosphatase 45 U/L (40-130); Anion Gap 15.6 (5-19); Aspartate Amino Transferase 23 U/L (0-40); Blood Urea Nitrogen 55 mg/dL (8-23); Calcium 7.9 mg/dL (8.5-10.5); Carbon Dioxide 32 mmol/L (22-29); Chloride 99 mmol/L (98-107); Glomerular Filtration Rate 44.3 mL/min (90-130); Glucose 470 mg/dL (65-115); Osmolality Calculated 330 mOsm/kg (285-295); Potassium 4.6 mmol/L (3.5-5.1); Sodium 142 mmol/L (136-145); Total Bilirubin 0.2 mg/dL (0.15-1.2); Total Protein 6.4 g/dL (6.6-8.7)
[2024-09-11 01:26] LABS: Magnesium 2.1 mg/dL (1.7-2.3)
[2024-09-11] MEDS: levalbuterol 0.63 mg/3 mL Neb INHALATION ×3 (02:07→21:51)
[2024-09-11] MEDS: ipratropium 0.5 mg/2.5 mL Neb INHALATION ×3 (02:07→21:51)
[2024-09-11] MEDS: heparin drip 25,000 UNIT/500 ML PREMIX 23 UNIT IV (03:08)
[2024-09-11] MEDS: insulin glargine 100 units/1 mL 10 UNIT SUBCUT (05:54)
[2024-09-11 06:41] LABS: Glucose Point of Care 377 mg/dL (70-110)
[2024-09-11] MEDS: regadenoson 0.4 Mg/5 ml Syringe IVP (07:34)
--- NOTE | 2024-09-11 07:51 | PC.NURSE ---
Patient currently off the unit for stress test.
[2024-09-11] MEDS: insulin lispro 100 unit/1 mL SUBCUT ×4 (09:11→21:21)
[2024-09-11] MEDS: clopidogrel 75 mg Tablet PO (09:12)
[2024-09-11] MEDS: tamsulosin 0.4 mg Capsule PO (09:12)
[2024-09-11] MEDS: pantoprazole 40 mg SDV IVP ×2 (09:12→20:43)
[2024-09-11] MEDS: azithromycin 250 mg Tablet 500 MG PO (09:12)
[2024-09-11] MEDS: cyanocobalamin 1,000 mcg/mL SDV 1000 MCG IM (09:12)
[2024-09-11] MEDS: atorvastatin 40 mg Tablet 20 MG PO (09:12)
[2024-09-11] MEDS: sennosides-docusate Tablet 1 TAB PO (09:12)
[2024-09-11] MEDS: aspirin 81 mg EC Tablet PO (09:12)
[2024-09-11] MEDS: gabapentin 100 mg Capsule PO ×2 (09:12→16:59)
[2024-09-11] MEDS: phenazopyridine 100 mg Tablet PO ×3 (09:15→16:59)
--- NOTE | 2024-09-11 09:32 | PC.NURSE ---
Patient returned from [facility] at this time. Patient denies pain or needs. No distress observed.
[2024-09-11 10:15] LABS: Partial Thromboplastin Time 57.4 SECONDS (23.9-36.7)
[2024-09-11 11:29] LABS: Glucose Point of Care 435 mg/dL (70-110)
--- NOTE | 2024-09-11 12:38 | P.PN_ITS ---
Subjective 2 Subjective: No recurrence overnight. Patient has remained hemodynamically stable and afebrile. Sitting up in chair today. Back to baseline supplementation of 3 L. Denies any chest pain. Denies any nausea, pain, headache. Vitals/I&O/Wt Last Vital Signs Temp 97.9 F 09/11/24 11:51 Pulse 94 09/11/24 11:51 Resp 22 H 09/11/24 11:51 BP 148/78 09/11/24 11:51 Pulse Ox 94 09/11/24 11:51 O2 Del Method Nasal Cannula 09/11/24 11:51 O2 Flow Rate 3 09/10/24 20:30 FiO2 30 09/11/24 02:10 09/10/24 09/11/24 09/11/24 22:59 06:59 14:59 Intake Total 958 / 1435.292 130.150 / 1565.442 725.6 / 725.6 Output Total 2400 / 3775 1200 / 4975 Balance -1442 / -2339.708 -1069.850 / -3409.558 725.6 / 725.6 Weight last 48 hrs Weight 155.31 kg Weight 154.278 kg Weight 152.815 kg Physical Exam 2 Narrative: General: No acute distress, AO x3, morbidly obese on nasal cannula HEENT: PERRLA, pupils bilaterally equal and reactive Chest: Bilateral bronchial breath sounds all over lung bales with occasional rhonchi right more than left CVS: S1-S2 regular, no murmurs, no tachycardia, no gallops, no rubs Abdomen: Soft, nontender, no organomegaly, bowel sounds present Neuro: No focal deficits, no facial deformity, AO x3, power 5/5 in all limbs Resp: AUSCULTATION: crackles, wheezes and diminished lung sounds Cardio: COMMON NORMALS: regular rate and regular rhythm RATE: regular rate RHYTHM: regular rhythm Urinary Catheter Management: Ruiz: Cath Placed During This Visit: yes Reason for Continuing Indwelling Catheter: Accurate Measurement of Urinary Output in Critically Ill Patients Urinary Catheter Date of Insertion: 09/07/24 Urinary Catheter Time of Insertion: 19:37 Data 09/11/24 00:50 09/11/24 00:50 A&P Assessment and plan (1) Acute respiratory failure with hypoxia and hypercapnia: (2) Acute exacerbation of chronic obstructive airways disease: (3) Influenza: (4) Acute and chronic respiratory failure with hypercapnia: (5) Positive cardiac stress test: (6) Non-STEMI (non-ST elevated myocardial infarction): (7) Acute renal failure: (8) Pneumonia: (9) Type 2 diabetes mellitus: (10) HTN (hypertension): (11) Morbidly obese: (12) Sleep apnea: (13) On home oxygen therapy: (14) Septic shock: Resolved. Plan Acute on chronic hypoxic and hypercapnic respiratory failure in setting of COPD exacerbation: Fluid improving. Continue with BiPAP nightly. Oxygen supplementation keeping saturation over 88%. Diet advanced. Wean Solu-Medrol to 40 mg Q12 hourly. Continue with Pulmicort twice daily, ipratropium, Xopenex every 6 hours. Strict input charting, daily weights. Monitor urine output. Ruiz catheter. Patient net negative today. Continue with IV Lasix 60 mg 1 more time. Metolazone 5 mg as needed. Fluid restriction to less than 1500 cc. Influenza A: Treatment of COPD as above. Supportive treatment. Aggressive pulmonary toilet. Continue Tamiflu. Change dose to daily depending on creatinine clearance. Non-ST elevation AR: Appreciate Limited echocardiogram. Concerns for possible regional wall motion abnormality in inferior lateral region Continue with heparin drip. Lexiscan stress test positive for acute ischemia today. Patient remains chest pain-free. Continue with aspirin, statin. Hold off on beta-herbert for now given patient having septic shock in last 24 hours. Appreciate A1c, lipid panel. Will consult cardiology for further recommendations and possible cardiac angiogram. CRISPIN: Baseline creatinine normal. Creatinine down to 1.6 today. Continues to improve. Most likely in setting of sepsis along with concerns for urinary retention. CT abdomen pelvis negative for obstructive nephropathy. IV Lasix as above. Strict input output charting. Medical reconciliation done for nephrotoxic drugs. Monitor BMP daily. Appreciate urine lites, urine creatinine, urine eosinophils. If continues to worsen will plan to consult nephrology. Septic shock: Resolved. Levophed weaned off. Keep mean artery pressure 65. Sepsis: Resolved. SIRS: Tachycardic, Febrile, Source: Pneumonia End organ damage: Acute renal failure Lactic acid elevated Patient received some of the full 30 mL/kg BW given concerns for heart failure on admission. Follow-up blood culture, urine culture. MRSA swab negative, appreciate procalcitonin, negative urine Legionella and bacterial antigen. Collect sputum culture when possible. Low concerns for bacterial infection for now but as patient is severely sick we will start on treatment for community-acquired pneumonia with azithromycin and ceftriaxone. Type 2 diabetes mellitus: A1c of 6.6. Blood sugars elevated. Most likely in setting of steroids. Change sliding scale to high-dose protocol. Continue with Lantus 10 units a.m. Continue with home dose of statin, change gabapentin to 200 mg twice daily depending on creatinine clearance. Full code Carb consistent cardiac diet, fluid restriction to less than 1500 cc Heparin drip will be sufficient for DVT prophylaxis Protonix OPD prophylaxis Attestations 2 Medical Necessity Statement*: Requires further hospitalization for management of acute on chronic respiratory failure in setting of congestive heart failure, COPD exacerbation, influenza, non-ST elevation AR with positive cardiac stress test, resolving CRISPIN Diagnoses Acute respiratory failure with hypoxia and hypercapnia J96.01; J96.02 Acute exacerbation of chronic obstructive airways disease J44.1 Influenza J11.1 Acute and chronic respiratory failure with hypercapnia J96.22 Positive cardiac stress test R94.39 Non-STEMI (non-ST elevated myocardial infarction) I21.4 Acute renal failure N17.9 Pneumonia J18.9 Type 2 diabetes mellitus E11.9 HTN (hypertension) I10 Morbidly obese E66.01 Sleep apnea G47.30 On home oxygen therapy Z99.81 Septic shock A41.9; R65.21
--- NOTE | 2024-09-11 13:44 | P.CONIM_ITS ---
Documented by User: Dell Patel MD 09/11/24 19:08 Providers/Reason For Consult 2 Consulting Physician/Specialty*: SUDHA Patel MD/cardiology Reason for Consult*: Patient with abnormal Myocardial perfusion imaging Requesting Physician: Dr. Medel Attending Physician: Octavio Lainez MD Primary Care Provider: Shaniqua Carey MD History of Present Illness History of Present Illness Walter Medina is a 59 year old male with a history of reactive airway disease/COPD/multiple hospital admissions in the recent past with the hypercapnic and hypoxic respiratory failure, underwent a Myocardial perfusion imaging today for elevated troponin T. The test was found to be abnormal. Cardiology consult is requested for further cardiac evaluation recommendations. He is admitted to hospital with progressive shortness of breath/respiratory distress. His symptoms are slowly improving. His oxygenation is slowly improving. His initial troponin T was around 480. There was no significant delta. His hospital course was complicated with hypotension and acute on chronic kidney injury. This patient is known to have high blood pressure, type 2 diabetes, dyslipidemia and severe COPD/reactive airway disease for many years. Patient the last 2 months, he had 3 hospital admissions, each 1 lasting for more than a week for exacerbation of his COPD. He had associated pneumonia with the first 2 exacerbations. This time, he was diagnosed with influenza A infection. He is known to have sleep apnea and is on BiPAP. He never had any chest pain. Currently has no fever or chills. He is slowly recuperating. No abdominal pain or dysuria. He has no previous history for any coronary disease, myocardial infarction or congestive heart failure. He has a [id number] history of smoking which he quit 20 years ago. No alcohol abuse or any other substance abuse. His father had a myocardial infarction in his 60s. And at the age of 69. Mother had a heart failure in her 80s. No other line family history. The Myocardial perfusion imaging today revealed moderate area of moderately decreased tracer uptake involving the anteroseptal, inferior and inferolateral and apical regions suggesting myocardial scarring with ischemia in distribution of the left and descending artery/right coronary artery. Review of Systems 2 Narrative: CONSTITUTIONAL: No fever or chills. EYES: No blurring of vision or other visual disturbances lately. ENT: No hoarseness of voice, auditory disturbances or sore throat. CARDIOVASCULAR: As mentioned above. RESPIRATORY: As mentioned above GASTROINTESTINAL: No hematemesis or melena. GENITOURINARY: Acute on chronic kidney disease as mentioned above INTEGUMENTARY: No skin rashes or history of skin cancer. NEURO: No transient ischemic attacks or amaurosis. PSYCHIATRIC: No history of psychosis or major depression. HEMATOLOGIC: No bleeding disorders or significant anemia. ENDOCRINE: Type 2 diabetes MUSCULOSKELETAL: No recent joint pain or swelling. ALLERGY/IMMUNOLOGY: As mentioned above. Medications/Allergies Home Medications Medication Instructions Recorded Confirmed Last Taken Type albuterol sulfate 2.5 mg/3 mL 2.5 mg inhalation Q4H PRN Cough 06/06/24 09/07/24 09/07/24 History (0.083 %) solution for nebulization and wheezing albuterol sulfate 90 mcg/actuation 1 puff inhalation Q6H PRN 06/06/24 09/07/24 Unknown History aerosol inhaler Shortness Of Breath atorvastatin 20 mg tablet 20 mg PO DAILY 06/06/24 09/07/24 09/07/24 History dulaglutide 1.5 mg/0.5 mL 1.5 mg SUBCUT Q7D 06/06/24 09/07/24 09/02/24 History subcutaneous pen injector (Trulicity) fluticasone 250 mcg-salmeterol 50 1 inh inhalation BID 06/06/24 09/07/24 06/05/24 History mcg/dose blistr powdr for inhalation fluticasone propionate 50 2 spray intranasal DAILY 06/06/24 09/07/24 09/07/24 History mcg/actuation nasal spray,suspension gabapentin 300 mg capsule 300 mg PO TID 06/06/24 09/07/24 09/07/24 History glyburide 5 mg tablet 50 mg PO DAILY 06/06/24 09/07/24 09/07/24 History hydrochlorothiazide 25 mg tablet 25 mg PO DAILY 06/06/24 09/07/24 09/07/24 History ibuprofen 800 mg tablet (IBU) 800 mg PO TID PRN Pain 06/06/24 09/07/24 09/07/24 History lisinopril 10 mg tablet 10 mg PO DAILY 06/06/24 09/07/24 09/07/24 History metformin 1,000 mg tablet 1,000 mg PO BID 06/06/24 09/07/24 09/07/24 History sildenafil 100 mg tablet See Rx Instructions .Route .COMPLEX 06/06/24 09/07/24 Unknown History tiotropium bromide 1.25 2 inh inhalation DAILY 06/06/24 09/07/24 09/07/24 History mcg/actuation mist for inhalation (Spiriva Respimat) Allergies Allergy/AdvReac Type Severity Reaction Status Date / Time No Known Allergies Allergy Verified 06/05/24 18:32 Current Medications Generic Name Dose Route Start Last Admin Trade Name Freq PRN Reason Stop Dose Admin Acetaminophen 500 mg 09/07/24 19:39 09/09/24 00:08 Acetaminophen 500 Mg Tablet PO 500 mg Q4H PRN Administration fever and mild pain Albuterol/Ipratropium 3 ml 09/07/24 19:39 09/08/24 08:14 Ipratropium-Albuterol 3 Ml Neb INHALATION 3 ml Q6H PRN Administration SHORTNESS OF BREATH Aspirin 81 mg 09/08/24 09:00 09/11/24 09:12 Aspirin 81 Mg Ec Tablet PO 81 mg DAILY PETER Administration Atorvastatin Calcium 20 mg 09/10/24 09:00 09/11/24 09:12 Atorvastatin 40 Mg Tablet PO 20 mg DAILY PETER Administration Azithromycin 500 mg 09/08/24 15:35 09/11/24 09:12 Azithromycin 250 Mg Tablet PO 09/11/24 15:34 500 mg DAILY PETER Administration Protocol Budesonide 0.5 mg 09/08/24 20:00 09/11/24 07:46 Budesonide 0.5 Mg/2 Ml Neb INHALATION Not Given BID.RESPIRATORY PETER Ceftriaxone Sodium 1,000 mg 09/08/24 15:45 09/10/24 16:46 Ceftriaxone 1,000 Mg Sdv IVP 1,000 mg Q24H PETER Administration Protocol Clopidogrel Bisulfate 75 mg 09/08/24 09:00 09/11/24 09:12 Clopidogrel 75 Mg Tablet PO 75 mg DAILY PETER Administration Cyanocobalamin 1,000 mcg 09/08/24 11:45 09/11/24 09:12 Cyanocobalamin 1,000 Mcg/Ml Sdv IM 1,000 mcg DAILY PETER Administration Gabapentin 100 mg 09/09/24 18:00 09/11/24 09:12 Gabapentin 100 Mg Capsule PO 100 mg BID PETER Administration Heparin Sodium/Sodium Chloride 25,000 unit in 500 mls @ 0 mls/hr 09/09/24 11:00 09/11/24 10:20 Heparin Drip IV 7.4 unit/kg/hr CONT PETER 23 mls/hr Titration Protocol Per Protocol Insulin Glargine 10 unit 09/10/24 12:00 09/11/24 05:54 Insulin Glargine 100 Units/1 Ml SUBCUT 10 unit QAM PETER Administration Insulin Human Lispro 0 unit 09/08/24 12:00 09/11/24 12:25 Insulin Lispro 100 Unit/1 Ml SUBCUT 16 unit WM&BEDTIME PETER Administration Protocol Ipratropium [place] 0.5 mg 09/09/24 02:00 09/11/24 13:39 Ipratropium 0.5 Mg/2.5 Ml Neb INHALATION 0.5 mg Q6H.RESP PETER Administration Levalbuterol HCl 0.63 mg 09/08/24 14:00 09/11/24 13:39 Levalbuterol 0.63 Mg/3 Ml Neb INHALATION 0.63 mg Q6H.RESP PETER Administration Pantoprazole Sodium 40 mg 09/08/24 09:00 09/11/24 09:12 Pantoprazole 40 Mg Sdv IVP 40 mg BID PETER Administration Phenazopyridine HCl 100 mg 09/10/24 14:53 09/11/24 12:26 Phenazopyridine 100 Mg Tablet PO 09/12/24 14:52 100 mg TIDPC PETER Administration Senna/Docusate Sodium 1 tab 09/08/24 09:00 09/11/24 09:12 Sennosides-Docusate Tablet PO 1 tab DAILY PETER Administration Tamsulosin HCl 0.4 mg 09/10/24 14:53 09/11/24 09:12 Tamsulosin 0.4 Mg Capsule PO 0.4 mg DAILY PETER Administration PFSH Acute 2 PFSH: Medical History On home oxygen therapy Sleep apnea Morbidly obese HTN (hypertension) Type 2 diabetes mellitus History of type 2 diabetes mellitus History of morbid obesity History of COPD Surgical History History of appendectomy Family History Mother Diabetes Social History Smoking and tobacco/nicotine status: former use of tobacco/nicotine Alcohol intake: never Substance/Drug Use: never Vitals/I&O/Wt Last Vital Signs Temp 97.9 F 09/11/24 11:51 Pulse 94 09/11/24 11:51 Resp 22 H 09/11/24 11:51 BP 148/78 09/11/24 11:51 Pulse Ox 94 09/11/24 11:51 O2 Del Method Nasal Cannula 09/11/24 11:51 O2 Flow Rate 3 09/10/24 20:30 FiO2 30 09/11/24 02:10 09/10/24 09/11/24 09/11/24 22:59 06:59 14:59 Intake Total 958 / 1435.292 130.150 / 1565.442 725.6 / 725.6 Output Total 2400 / 3775 1200 / 4975 1100 / 1100 Balance -1442 / -2339.708 -1069.850 / -3409.558 -374.4 / -374.4 Weight last 48 hrs Weight 342 lb 6.4 oz Weight 340 lb 2.012 oz Weight 336 lb 14.4 oz Physical Exam 2 Narrative: GENERAL: The patient is alert and oriented times three. Not in any acute distress. HEENT: No significant pallor, icterus or lymphadenopathy.Oral cavity: There are no mucous membrane lesions. NECK: Trachea appears to be central. No masses noted. No JVD or thyromegaly appreciated. RESPIRATORY: Chest is symmetrical. No intercostals muscle retraction or any accessory muscle activation. There is no chest wall tenderness. Breath sounds are heard bilaterally. The misses of breath sounds are diminished on both sides. Scattered coarse crackles and occasional expiratory wheezes. BREASTS: Deferred. HEART: The heart sounds are normal. No S3 or S4. No significant murmurs. No pericardial rub ABDOMEN: No vessel pulsations or distention. No tenderness. No organomegaly appreciated. Bowel sounds are normally heard. : Deferred. RECTAL: Deferred. LYMPHATIC: No lymphadenopathy noted in the neck. EXTREMITIES: No edema or cyanosis. No clubbing. MUSCULOSKELETAL: No acute joint deformities or swelling SKIN: There are no significant rashes or ecchymosis NEUROPSYCHIATRIC: The patient is alert and oriented x3. Appears to be in a good mood. No tremors or rigidity noted. Urinary Catheter Management: Ruiz: Cath Placed During This Visit: yes Reason for Continuing Indwelling Catheter: Accurate Measurement of Urinary Output in Critically Ill Patients Urinary Catheter Date of Insertion: 09/07/24 Urinary Catheter Time of Insertion: 19:37 Data 09/11/24 00:50 09/11/24 00:50 Other Labs: Laboratory Last Values WBC 9.45 10^3/uL (3.29-11.43) 09/11/24 00:50 RBC 4.08 10^6/uL (3.85-5.65) 09/11/24 00:50 Hgb 11.30 g/dL (11.27-16.99) 09/11/24 00:50 Hct 36.0 % (37-53) L 09/11/24 00:50 MCV 88.2 fl (82-101) 09/11/24 00:50 MCH 27.7 pg (27-33) 09/11/24 00:50 MCHC 31.4 g/dL (30-55) 09/11/24 00:50 RDW 13.3 % (12.1-15.1) 09/11/24 00:50 Plt Count 239 10^3/cmm (157-399) 09/11/24 00:50 MPV 9.9 fL (7.4-10.4) 09/11/24 00:50 Neut % (Auto) 84.7 % 09/11/24 00:50 Lymph % (Auto) 8.1 % 09/11/24 00:50 [place] % (Auto) 7.0 % 09/11/24 00:50 Eos % (Auto) 0.0 % 09/11/24 00:50 Baso % (Auto) 0.0 % 09/11/24 00:50 Neut # (Auto) 8.00 10^3/uL (1.8-7.7) H 09/11/24 00:50 Lymph # (Auto) 0.8 10^3/uL (0.8-4.8) 09/11/24 00:50 [place] # (Auto) 0.7 10^3/uL (0.2-0.9) 09/11/24 00:50 Eos # (Auto) 0.0 10^3/uL (0.0-0.8) 09/11/24 00:50 Baso # (Auto) 0.0 10^3/uL (0.0-0.1) 09/11/24 00:50 Nucleated RBC % (auto) 0 % 09/11/24 00:50 Nucleated RBCs # 0.0 /100WBC 09/11/24 00:50 PT 13.10 SECONDS (12.1-14.9) 09/07/24 16:01 INR 0.97 (0.8-1.2) 09/07/24 16:01 APTT 57.4 SECONDS (23.9-36.7) H 09/11/24 09:45 D-Dimer 0.44 ug/mLFEU (0-0.59) 09/07/24 16:01 Specimen Type Arterial 09/09/24 08:04 Sample Site Radial, right 09/09/24 08:04 ABG pH 7.25 (7.35-7.45) L 09/09/24 08:04 ABG pCO2 58.5 mmHg (35-45) H 09/09/24 08:04 ABG pO2 111.0 mmHg (80.0-100.0) H 09/09/24 08:04 ABG PO2/FiO2 Ratio 277 09/09/24 08:04 ABG HCO3 25.5 mmol/L (22-26) 09/09/24 08:04 ABG O2 Saturation 97.9 09/09/24 08:04 ABG Base Excess -2.5 mmol/L (-2.0-2.0) L 09/09/24 08:04 Dae Test Pos 09/09/24 08:04 A-a O2 Gradient 13.6 mmHg (5-10) H 09/09/24 08:04 Hematocrit 36.1 % (42-52) L 09/09/24 08:04 Hgb O2 Saturation 96.0 % (95-100) 09/09/24 08:04 Carboxyhemoglobin 0.7 %THgb (0.4-20.1) 09/09/24 08:04 Methemoglobin 1.3 % (0.4-1.5) 09/09/24 08:04 Total Hemoglobin 11.8 g/dL (14-18) L 09/09/24 08:04 Sodium 129.0 mmol/L (131-143) L 09/09/24 08:04 Potassium 4.6 mmol/L (3.5-5.0) 09/09/24 08:04 Glucose 240.0 mg/dL (70-115) H 09/09/24 08:04 Ionized Calcium 1.1 mmol/L (1.1-1.4) 09/09/24 08:04 O2 Delivery Device Nc 09/09/24 08:04 O2 Liters/Min 5.0 % 09/09/24 08:04 FiO2 40.0 % 09/09/24 08:04 Tidal Volume 0.50 09/08/24 13:54 PEEP 10.0 cmH20 09/08/24 13:54 [facility] [place] 09/09/24 08:04 Sodium 142 mmol/L (136-145) 09/11/24 00:50 Potassium 4.6 mmol/L (3.5-5.1) 09/11/24 00:50 Chloride 99 mmol/L (98-107) 09/11/24 00:50 Carbon Dioxide 32 mmol/L (22-29) H 09/11/24 00:50 Anion Gap 15.6 (5-19) 09/11/24 00:50 BUN 55 mg/dL (8-23) H 09/11/24 00:50 Creatinine 1.6 mg/dL (0.7-1.2) H 09/11/24 00:50 GFR Calculation 44.3 mL/min (90-130) L 09/11/24 00:50 Glucose 470 mg/dL (65-115) H 09/11/24 00:50 POC Glucose 435 mg/dL (70-110) H 09/11/24 11:01 Estimat Average Glucose 143 09/07/24 16:01 Hemoglobin A1c 6.6 % (4.0-6.0) H 09/07/24 16:01 Calculated Osmolality 330 mOsm/kg (285-295) H 09/11/24 00:50 Lactic Acid 2.6 mmol/L (0.5-2.2) H 09/07/24 16:01 Lactic Acid (Sepsis) 2.0 mmol/L (0.5-2.2) 09/07/24 18:42 Calcium 7.9 mg/dL (8.5-10.5) L 09/11/24 00:50 Phosphorus 7.0 mg/dL (2.5-4.5) H 09/08/24 02:21 Magnesium 2.1 mg/dL (1.7-2.3) 09/11/24 00:50 Iron 17 ug/dL (59-158) L 09/08/24 02:21 TIBC 229 mcg/dl 09/08/24 02:21 % Saturation 7.4 % (20-50) L 09/08/24 02:21 Unsat Iron Binding 212 ug/dL (112-347) 09/08/24 02:21 Total Bilirubin 0.2 mg/dL (0.15-1.2) 09/11/24 00:50 AST 23 U/L (0-40) 09/11/24 00:50 ALT 37 U/L (0-41) 09/11/24 00:50 Alkaline Phosphatase 45 U/L (40-130) 09/11/24 00:50 Troponin T Baseline 484 ng/L (0-15) H* 09/07/24 16:01 Troponin T 120 Minute 472.0 ng/L (0-15) H 09/07/24 18:01 Delta Troponin T -12.0 ABS# (0-10) L 09/07/24 18:01 Troponin T Hi Sens 6Hr 436.7 ng/L (0-15) H 09/07/24 21:54 Troponin T Hi Sens 6Hr Delta -47.3 ng/L (0-12) L 09/07/24 21:54 C-Reactive Protein 70.2 mg/L (0.0-4.9) H 09/08/24 02:21 NT-Pro-B Natriuret Pep 7106 pg/mL (0-125) H 09/07/24 16:01 Total Protein 6.4 g/dL (6.6-8.7) L 09/11/24 00:50 Albumin 3.4 g/dL (3.5-5.2) L 09/11/24 00:50 Globulin 3.0 g/dL (1.3-4.6) 09/11/24 00:50 Triglycerides 89 mg/dL (0-150) 09/09/24 05:51 Triglycerides Cancelled 09/09/24 05:51 Cholesterol 107 mg/dL (0-200) 09/09/24 05:51 Cholesterol Cancelled 09/09/24 05:51 LDL Cholesterol, Calc 54 mg/dL (50-129) 09/09/24 05:51 LDL Cholesterol, Calc Cancelled 09/09/24 05:51 Total VLDL Cholesterol 18 mg/dL (0-30) 09/09/24 05:51 Total VLDL Cholesterol Cancelled 09/09/24 05:51 HDL Cholesterol 35 mg/dL (60-100) L 09/09/24 05:51 HDL Cholesterol Cancelled 09/09/24 05:51 Cholesterol/HDL Ratio 3.06 mg/dL (1.0-5.00) 09/09/24 05:51 Cholesterol/HDL Ratio Cancelled 09/09/24 05:51 Vitamin B12 228 pg/mL (232-1245) L 09/08/24 02:21 Folate 6.6 ng/mL (4.5-32.2) 09/09/24 05:51 Procalcitonin 0.61 ng/mL (0-0.5) H 09/08/24 02:21 Urine Color Dark yellow (Yellow) A 09/07/24 19:35 Urine Appearance Turbid (CLEAR) A 09/07/24 19:35 Urine pH 5.0 (5-7) 09/07/24 19:35 Ur Specific [place] 1.025 (1.005-1.030) 09/07/24 19:35 Urine Protein 2+ (Negative) A 09/07/24 19:35 Urine Glucose (UA) Negative (Normal) 09/07/24 19:35 Urine Ketones Trace (Negative) 09/07/24 19:35 Urine Blood Non-haemolysed trace (Negative) 09/07/24 19:35 Urine Nitrate Negative (Negative) 09/07/24 19:35 Urine Bilirubin Negative (Negative) 09/07/24 19:35 Urine Urobilinogen 1.0 mg/dL (Negative) 09/07/24 19:35 Ur Leukocyte Esterase Negative (Negative) 09/07/24 19:35 Urine RBC 0-2 /hpf (0-2) 09/07/24 19:35 Urine WBC 0-5 /hpf (0-5) 09/07/24 19:35 Ur Eosinophil Smear 0 (0-0) 09/08/24 15:05 Ur Squamous Epith Cells 0-5 /hpf (0-5) 09/07/24 19:35 Ur Transition Epith Cell 0-4 /hpf 09/07/24 19:35 Amorphous Sediment 1+ /hpf 09/07/24 19:35 Urine Bacteria None seen /hpf (NONE) 09/07/24 19:35 Hyaline Casts 54.20 /lpf 09/07/24 19:35 Urine Eosinophils No eosinophils seen 09/08/24 15:05 Ur Random Sodium 25 mmol/L 09/08/24 15:05 Ur Random Potassium 26 mmol/L 09/08/24 15:05 Ur Random Chloride 10 mmol/L 09/08/24 15:05 Urine Creatinine 158 mg/dL (39-259) 09/08/24 15:05 Nasal MRSA (PCR) Not detected (Negative) 09/08/24 14:03 Coronavirus (PCR) Negative (Negative) 09/07/24 16:25 Influenza A (PCR) Positive (Negative) 09/07/24 16:25 Influenza Type B (PCR) Negative (Negative) 09/07/24 16:25 RSV (PCR) Negative (Negative) 09/07/24 16:25 Other data: 09/07/2024 EKG showed sinus rhythm with right bundle branch block pattern. Diffuse nonspecific T wave changes. Echo Complete CONCLUSIONS Possibly normal LV size and ejection fraction of 70%. Segmental wall motion analysis difficult because of poor ultrasonic windows. The basal inferolateral segment appears to be somewhat hypokinetic. The right atrium and the right angle appears to be mildly dilated. Right sided structures could not be visualized well. No gross morphologic abnormalities in the tricuspid and mild mitral valves. There is no pericardial effusion. Dilated IVC with decreased respiratory variation, suggesting right atrial pressure around 15 mmHg Comparison with the previous study is difficult because of the difference in the technical quality. Stress test IMPRESSIONS 1. Myocardial perfusion imaging revealing moderate area of moderately decreased tracer uptake involving the inferior, inferolateral, anteroseptal and apical regions with significant reversibility suggesting myocardial scarring with ischemia predominantly in the distribution of the left anterior descending artery and right coronary artery with some involvement of the left circumflex artery. 2. Normal LV ejection fraction of 64%. 3. LV wall motion analysis revealing no gross wall motion abnormalities. 4. LV volume, upper limit of normal. No similar previous studies are available for comparison A&P Assessment and plan (1) Positive cardiac stress test: The abnormal Myocardial perfusion imaging is suggestive of ischemia in the distribution of the left anterior descending artery and right coronary artery. Patient has no specific symptoms pertaining to coronary disease at this time. However in view of his multiple risk factors, he carries a higher risk for recurrent coronary events. For further evaluation of his coronary status, he may benefit from a cardiac catheterization. (2) Elevated troponin: This could be related to type II PA. However in view of the abnormal Myocardial perfusion imaging, it would be appropriate to treat him as a non-ST elevation myocardial infarction. I may start him on Plavix 300 mg p.o. today followed by 75 mg p.o. daily. Continue the aspirin. Also may start him on a low-dose of nitrates namely isosorbide mononitrate 30 mg p.o. daily. Continue the statin and a low-dose of beta-herbert. (3) Type 2 diabetes mellitus: Management as per the primary. Qualifiers: Diabetes mellitus complication status: without complication Diabetes mellitus ocean transportation intermediary insulin use: with ocean transportation intermediary use Qualified Code(s): E11.9 - Type 2 diabetes mellitus without complications; Z79.4 - correction (current) use of insulin (4) Morbidly obese: Patient seems to understand the importance of lifestyle modifications. (5) Acute and chronic respiratory failure with hypercapnia: Currently on BiPAP. Optimize treatment as per the primary (6) Dyslipidemia: May continue on the atorvastatin. Plan Continue the Plavix. Metoprolol 12.5 mg p.o. twice daily, the dose may be gradually increased Continue the statin Medication may be continued. Patient requires a cardiac catheterization to further evaluate his coronary status. However because of his multiple respiratory complications and the recent influenza A infection, and shared decision was made to hold off on the further cardiac workup at least for another week unless he develops any increasing symptoms. Consult Attestations 2 Medical Necessity Statement: Patient requires continued hospital stay for close monitoring and further management. Based on the results of the above tests and the patient's clinical progress, further recommendations will be made. Thank you for the opportunity to evaluate this patient and make these recommendations Coding Level of Care Code 92751 Diagnoses Positive cardiac stress test R94.39 Elevated troponin R79.89 Type 2 diabetes mellitus without complication, with long-term current use of insulin E11.9; Z79.4 Diabetes mellitus complication status: without complication Diabetes mellitus ocean transportation intermediary insulin use: with ocean transportation intermediary use Morbidly obese E66.01 Acute and chronic respiratory failure with hypercapnia J96.22 Dyslipidemia E78.5 Documented by User: Marilee Long NP 09/11/24 17:07 History of Present Illness History of Present Illness Walter Medina is a 59 year old male with past medical history significant for respiratory failure, he uses BiPAP at home, 3 L during the daytime, ex-smoker. No significant heart disease per patient. He came in about 4 days ago with chief complaint of shortness of breath. He has not had a history of chest pain. He reports a cough. He was diagnosed with Flu A and treated for pneumonia as well as acute kindey injury. Currently improved but still reports a cough. His troponins were significantly elevated at [phone]. Stress test was done that showed moderately decreased tracer uptake involving the inferior, inferolateral, anteroseptal and apical regions with significant reversibility suggesting myocardial scarring with ischemia predominantly in the distribution of the left anterior descending artery and right coronary artery with some involvement of the left circumflex artery. We were consulted for this reason. Patient has a history of type 2 diabetes, pneumonia, COPD, respiratory failure, hypertension, morid obesity, and sleep apnea. Medications/Allergies Home Medications Medication Instructions Recorded Confirmed Last Taken Type albuterol sulfate 2.5 mg/3 mL 2.5 mg inhalation Q4H PRN Cough 06/06/24 09/07/24 09/07/24 History (0.083 %) solution for nebulization and wheezing albuterol sulfate 90 mcg/actuation 1 puff inhalation Q6H PRN 06/06/24 09/07/24 Unknown History aerosol inhaler Shortness Of Breath atorvastatin 20 mg tablet 20 mg PO DAILY 06/06/24 09/07/24 09/07/24 History dulaglutide 1.5 mg/0.5 mL 1.5 mg SUBCUT Q7D 06/06/24 09/07/24 09/02/24 History subcutaneous pen injector (Trulicity) fluticasone 250 mcg-salmeterol 50 1 inh inhalation BID 06/06/24 09/07/24 06/05/24 History mcg/dose blistr powdr for inhalation fluticasone propionate 50 2 spray intranasal DAILY 06/06/24 09/07/24 09/07/24 History mcg/actuation nasal spray,suspension gabapentin 300 mg capsule 300 mg PO TID 06/06/24 09/07/24 09/07/24 History glyburide 5 mg tablet 50 mg PO DAILY 06/06/24 09/07/24 09/07/24 History hydrochlorothiazide 25 mg tablet 25 mg PO DAILY 06/06/24 09/07/24 09/07/24 History ibuprofen 800 mg tablet (IBU) 800 mg PO TID PRN Pain 06/06/24 09/07/24 09/07/24 History lisinopril 10 mg tablet 10 mg PO DAILY 06/06/24 09/07/24 09/07/24 History metformin 1,000 mg tablet 1,000 mg PO BID 06/06/24 09/07/24 09/07/24 History sildenafil 100 mg tablet See Rx Instructions .Route .COMPLEX 06/06/24 09/07/24 Unknown History tiotropium bromide 1.25 2 inh inhalation DAILY 06/06/24 09/07/24 09/07/24 History mcg/actuation mist for inhalation (Spiriva Respimat) Allergies Allergy/AdvReac Type Severity Reaction Status Date / Time No Known Allergies Allergy Verified 06/05/24 18:32 PFSH Acute 2 PFSH: Medical History On home oxygen therapy Sleep apnea Morbidly obese HTN (hypertension) Type 2 diabetes mellitus History of type 2 diabetes mellitus History of morbid obesity History of COPD Surgical History History of appendectomy Family History Mother Diabetes Social History Smoking and tobacco/nicotine status: former use of tobacco/nicotine Alcohol intake: never Substance/Drug Use: never Physical Exam 2 Urinary Catheter Management: Ruiz: Cath Placed During This Visit: yes Data 09/11/24 00:50 09/11/24 00:50 Other data: Echo Complete CONCLUSIONS Possibly normal LV size and ejection fraction of 70%. Segmental wall motion analysis difficult because of poor ultrasonic windows. The basal inferolateral segment appears to be somewhat hypokinetic. The right atrium and the right angle appears to be mildly dilated. Right sided structures could not be visualized well. No gross morphologic abnormalities in the tricuspid and mild mitral valves. There is no pericardial effusion. Dilated IVC with decreased respiratory variation, suggesting right atrial pressure around 15 mmHg Comparison with the previous study is difficult because of the difference in the technical quality. Stress test IMPRESSIONS 1. Myocardial perfusion imaging revealing moderate area of moderately decreased tracer uptake involving the inferior, inferolateral, anteroseptal and apical regions with significant reversibility suggesting myocardial scarring with ischemia predominantly in the distribution of the left anterior descending artery and right coronary artery with some involvement of the left circumflex artery. 2. Normal LV ejection fraction of 64%. 3. LV wall motion analysis revealing no gross wall motion abnormalities. 4. LV volume, upper limit of normal. No similar previous studies are available for comparison A&P Assessment and plan (1) Positive cardiac stress test: (2) Elevated troponin: (3) Type 2 diabetes mellitus: Qualifiers: Diabetes mellitus complication status: without complication Diabetes mellitus ocean transportation intermediary insulin use: with snf use Qualified Code(s): E11.9 - Type 2 diabetes mellitus without complications; Z79.4 - correction (current) use of insulin (4) Morbidly obese: (5) Acute and chronic respiratory failure with hypercapnia: (6) Dyslipidemia: Coding Level of Care Code 62977 Diagnoses Positive cardiac stress test R94.39 Elevated troponin R79.89 Type 2 diabetes mellitus without complication, with long-term current use of insulin E11.9; Z79.4 Diabetes mellitus complication status: without complication Diabetes mellitus ocean transportation intermediary insulin use: with ocean transportation intermediary use Morbidly obese E66.01 Acute and chronic respiratory failure with hypercapnia J96.22 Dyslipidemia E78.5
--- NOTE | 2024-09-11 14:43 | NMCV_ITS ---
NM zeb perf SPECT r/s* [id number] Walter Medina Age: 59 Gender: M : 1965 Exam Date: 09/11/2024 06:52 Ordering Phys: Octavio Lainez MD Technologist: JOSIANE Truong Exam Location: [facility] Indications: cp STRESS TEST Please see separate stress test report in [facility] for full findings IMAGE PROTOCOL Rest/Stress 1 Lexiscan Day Radiopharmaceutical Dose (mCi) Administration Site Administered by Rest: Tc-99m 11 IV Melonie Tolu, UNIVERSITY ADMINISTRATIVE ASSISTANT Sestamibi Stress:Tc-99m 33 IV Melonie Tolu, UNIVERSITY ADMINISTRATIVE ASSISTANT Sestamibi Rest: 11-Sep-2024 45 Discovery 630 Stress: 11-Sep-2024 30 Discovery 630 0.4mg Lexiscan. Supine position only as patient was unable to lay prone. SPECT RESULTS Technical Quality: Good Raw Data Analysis: Normal Image Corrections: No attenuation or motion correction applied Summed Stress Score: 10 Summed Rest Score: 2 Summed Difference Score: 8 PERFUSION FINDINGS Moderate area of moderately decreased tracer uptake involving the mid and apical inferior, mid anteroseptal, apical septal and LV apex. Significant reversibility was noted in these regions at rest. Small area of slightly decreased tracer uptake was noted in the mid inferolateral region with some reversibility. FUNCTIONAL RESULTS (calculated via Gated SPECT) Stress Image LV EF (%): 64 Stress EDV (mL):120 TID: 0.86 Stress ESV (mL):43 FUNCTIONAL FINDINGS: Segmental wall motion analysis revealing no gross wall motion abnormalities IMPRESSIONS 1. Myocardial perfusion imaging revealing moderate area of moderately decreased tracer uptake involving the inferior, inferolateral, anteroseptal and apical regions with significant reversibility suggesting myocardial scarring with ischemia predominantly in the distribution of the left anterior descending artery and right coronary artery with some involvement of the left circumflex artery. 2. Normal LV ejection fraction of 64%. 3. LV wall motion analysis revealing no gross wall motion abnormalities. 4. LV volume, upper limit of normal. No similar previous studies are available for comparison Dr Dell Patel MD [facility] (Electronically Signed) Final Date: 11 September 2024 12:39 S
[2024-09-11] MEDS: oseltamivir phosphate 30 mg Capsule PO (16:59)
[2024-09-11] MEDS: methylPREDNISolone sod succ 40 mg/mL INJ IVP (17:00)
[2024-09-11] MEDS: cefTRIAXone 1,000 mg SDV 1000 MG IVP (17:00)
[2024-09-11 17:15] LABS: Glucose Point of Care 331 mg/dL (70-110)
[2024-09-11 21:14] LABS: Glucose Point of Care 449 mg/dL (70-110)
[2024-09-11] MEDS: budesonide 0.5 mg/2 mL Neb INHALATION (21:51)
[2024-09-11 23:37] LABS: Partial Thromboplastin Time 57.2 SECONDS (23.9-36.7)
[2024-09-12] VITALS (10 sets, daily range): BP systolic 124–159; BP diastolic 66–99; PULSE 72–92; RESP 16–24; TEMP 36.7–37.1; O2SAT 94–98
[2024-09-12] MEDS: ipratropium 0.5 mg/2.5 mL Neb INHALATION ×2 (01:50→07:30)
[2024-09-12] MEDS: levalbuterol 0.63 mg/3 mL Neb INHALATION ×2 (01:50→07:30)
[2024-09-12] MEDS: heparin drip 25,000 UNIT/500 ML PREMIX 23 UNIT IV (01:57)
[2024-09-12 04:15] LABS: Basophils % 0.1 %; Hematocrit 37.1 % (37-53); Lymphocytes # 0.9 10^3/uL (0.8-4.8); Lymphocytes % 10.2 %; Mean Corpuscular HGB Conc 30.7 g/dL (30-55); Mean Corpuscular Hemoglobin 27.7 pg (27-33); Mean Platelet Volume 9.7 fL (7.4-10.4); Monocytes # 0.8 10^3/uL (0.2-0.9); Monocytes % 9.2 %; Neutrophils # 7.06 10^3/uL (1.8-7.7); Neutrophils % 79.8 %; Nucleated Red Blood Cells % 0 %; Platelet Count 239 10^3/cmm (157-399); Red Blood Count 4.12 10^6/uL (3.85-5.65); Red Cell Distribution Width 13.4 % (12.1-15.1); White Blood Count 8.84 10^3/uL (3.29-11.43)
[2024-09-12 04:32] LABS: Alanine Aminotransferase 48 U/L (0-41); Albumin Level 3.5 g/dL (3.5-5.2); Alkaline Phosphatase 49 U/L (40-130); Anion Gap 12.7 (5-19); Aspartate Amino Transferase 24 U/L (0-40); Blood Urea Nitrogen 43 mg/dL (8-23); Calcium 7.8 mg/dL (8.5-10.5); Carbon Dioxide 32 mmol/L (22-29); Chloride 98 mmol/L (98-107); Creatinine Clr Calc Pharmacy 119.2267; Globulin 2.6 g/dL (1.3-4.6); Glomerular Filtration Rate 76.2 mL/min (90-130); Glucose 375 mg/dL (65-115); Osmolality Calculated 312 mOsm/kg (285-295); Potassium 4.7 mmol/L (3.5-5.1); Sodium 138 mmol/L (136-145); Total Bilirubin 0.2 mg/dL (0.15-1.2); Total Protein 6.1 g/dL (6.6-8.7)
[2024-09-12 06:38] LABS: Glucose Point of Care 316 mg/dL (70-110)
[2024-09-12] MEDS: methylPREDNISolone sod succ 40 mg/mL INJ IVP (07:02)
[2024-09-12] MEDS: insulin glargine 100 units/1 mL 10 UNIT SUBCUT (07:05)
[2024-09-12] MEDS: budesonide 0.5 mg/2 mL Neb INHALATION (07:30)
[2024-09-12 09:56] LABS: Partial Thromboplastin Time 51.7 SECONDS (23.9-36.7)
[2024-09-12] MEDS: insulin lispro 100 unit/1 mL SUBCUT ×2 (09:56→12:16)
[2024-09-12] MEDS: guaiFENesin 600 mg Tablet 1200 MG PO (09:57)
[2024-09-12] MEDS: tamsulosin 0.4 mg Capsule PO (09:57)
[2024-09-12] MEDS: oseltamivir phosphate 30 mg Capsule PO (09:57)
[2024-09-12] MEDS: aspirin 81 mg EC Tablet PO (09:57)
[2024-09-12] MEDS: cyanocobalamin 1,000 mcg/mL SDV 1000 MCG IM (09:57)
[2024-09-12] MEDS: phenazopyridine 100 mg Tablet PO ×2 (09:57→12:16)
[2024-09-12] MEDS: metoprolol tartrate 25 mg Tablet 12.5 MG PO (09:57)
[2024-09-12] MEDS: atorvastatin 40 mg Tablet 20 MG PO (09:57)
[2024-09-12] MEDS: sennosides-docusate Tablet 1 TAB PO (09:57)
[2024-09-12] MEDS: gabapentin 100 mg Capsule PO (09:57)
[2024-09-12] MEDS: clopidogrel 75 mg Tablet PO (09:58)
--- NOTE | 2024-09-12 10:08 | PM.DCS ---
Discharge Providers Date of Admission: 09/07/24 19:45 Date of Discharge: September 12, 2024 Attending Provider at Admission: Blanka Mahmood MD Attending Provider at Discharge: Octavio Lainez MD Primary Care Provider: Shaniqua Carey MD Diagnoses at Discharge Discharge Diagnosis (1) Positive cardiac stress test: Status: Acute (2) Elevated troponin: Status: Acute (3) Type 2 diabetes mellitus: Status: Acute Qualifiers: Diabetes mellitus complication status: without complication Diabetes mellitus long term acute care registered nurse insulin use: with long term acute care registered nurse use Qualified Code(s): E11.9 - Type 2 diabetes mellitus without complications; Z79.4 - nursing home (current) use of insulin (4) Morbidly obese: Status: Acute (5) Acute and chronic respiratory failure with hypercapnia: Status: Acute (6) Dyslipidemia: Status: Acute Reason for Visit Reason for Visit: SOB Brief History: History as per HPI: Walter Medina is a 59 year old male with past medical history significant for chronic hypoxic hypercapnic respite failure naomie uses BiPAP at home, 3 L during the daytime, ex-smoker, was discharged in May after management of pneumonia and hypercapnia presented today with worsening of shortness of breath. Patient is not endorsing chest pain, fever, nausea, vomiting diarrhea. No recent weight gain. Patient is endorsing poor p.o. intake feeling dehydrated. Patient is stating that his symptoms worsened in last 48 hours. He was short of breath with minimal activity despite getting all of his inhaler regimen and BiPAP. Endorsing fatigue and lethargy. No syncope or chest pain. In the ER patient was diagnosed with non-STEMI and pneumonia. He received IV fluid bolus, he is afebrile no leukocytosis. He does have acute on chronic kidney disease. Patient is endorsing low urine output secondary to dehydration Hospital Course Hospital Course Patient was admitted to the hospital for further evaluation and management of acute on chronic hypoxic and hypercapnic respiratory failure in setting of influenza requiring BiPAP ventilation at first, non-ST elevation DE. He was started on supportive treatment with nebulization, steroids, Tamiflu. On admission he was also found to be in acute kidney injury which is thought to be in setting of septic shock along with urinary retention. Ruiz catheter was placed and he was started on vasopressors. Gradually his blood pressures improved. Patient has been at his baseline oxygen supplementation with BiPAP needed only at night for last 48 hours. He is renal functions have improved back to normal. He has not required vasopressors for over 3 days. His steroids were gradually weaned down. For non-ST ovation DE at fourth he was started on heparin drip as per ACS protocol. Patient remained chest pain-free. Echocardiogram was done which showed normal EF with concerns for regional wall motion normality. He underwent cardiac stress test on 09/11 which showed concerns of ischemia in LAD territory along with RCA with some involvement of LCx. Cardiology was consulted. Given his improvement in respiratory status, improving renal function patient and cardiology team had a detailed discussion and made a decision of following up as an outpatient within next few weeks to arrange for a cardiac angiogram as an outpatient. He has been discharged home in hemodynamically stable condition. He is to follow-up with urology as an outpatient given concerns for urinary retention. He is been discharged with Ruiz catheter in place. He will be on Augmentin for 2 more days. Physical Exam Narrative: General: No acute distress, AO x3, morbidly obese on nasal cannula HEENT: PERRLA, pupils bilaterally equal and reactive Chest: Bilateral bronchial breath sounds all over lung bales with occasional rhonchi right more than left CVS: S1-S2 regular, no murmurs, no tachycardia, no gallops, no rubs Abdomen: Soft, nontender, no organomegaly, bowel sounds present Neuro: No focal deficits, no facial deformity, AO x3, power 5/5 in all limbs Resp: AUSCULTATION: crackles, wheezes and diminished lung sounds Cardio: COMMON NORMALS: regular rate and regular rhythm RATE: regular rate RHYTHM: regular rhythm Urinary Catheter Management: Ruiz: Cath Placed During This Visit: yes Reason for Continuing Indwelling Catheter: Acute Urinary Retention or Obstruction Urinary Catheter Date of Insertion: 09/07/24 Urinary Catheter Time of Insertion: 19:37 Discharge Data Studies Completed and Pending Completed Studies During Hospitalization Category Date Time Status CT chest abdomen pelvis [[place] [id number] Cat Scan 09/07/24 17:01 Completed ] Stat Sestamibi Stress Test Request Routine Exams 09/10/24 14:43 Draft XR chest 1V portable [id number] Routine Exams 09/09/24 07:21 Completed XR chest 1V portable [id number] Stat Exams 09/07/24 15:52 Completed NM zeb perf SPECT r/s* [id number] Routine Nuc Med 09/11/24 14:43 Completed CV. echo limited [id number] Routine Ultrasound 09/08/24 20:50 Completed Pending at discharge Category Date Time Status Blood Culture Stat Lab 09/07/24 16:36 Results Complete Blood Count w/Auto AM LABS Lab 09/13/24 04:00 Ordered Comprehensive Metabolic Panel AM LABS Lab 09/13/24 04:00 Ordered Platelet Count Q2D Lab 09/13/24 04:00 Ordered Sputum Culture and Gram Stain Stat Lab 09/08/24 10:31 Uncollected Radiology Impressions Chest/Abdomen/Pelvis CT 09/07/24 17:01 IMPRESSION: 1. Chronic scattered small pulmonary nodules bilaterally, including component of small calcified granulomas. 2. Mild scattered pulmonary opacities mid and lower lungs with component of lower lung atelectasis. Findings likely represent pneumonia. 3. Mildly prominent or mildly reactive lymph nodes. IMPRESSION: 1. No acute findings. 2. Minimal sigmoid colon diverticulosis without diverticulitis. 3. Mild fatty liver. 4. Previous appendectomy. Chest X-Ray 09/09/24 07:21 IMPRESSION: Minimal ill-defined scattered opacities in the mid to lower bilateral lung bales are nonspecific. Differential includes atelectasis and pneumonia. Lexiscan stress test: PERFUSION FINDINGS Moderate area of moderately decreased tracer uptake involving the mid and apical inferior, mid anteroseptal, apical septal and LV apex. Significant reversibility was noted in these regions at rest. Small area of slightly decreased tracer uptake was noted in the mid inferolateral region with some reversibility. FUNCTIONAL RESULTS (calculated via Gated SPECT) Stress Image LV EF (%): 64 Stress EDV (mL):120 TID: 0.86 Stress ESV (mL):43 FUNCTIONAL FINDINGS: Segmental wall motion analysis revealing no gross wall motion abnormalities IMPRESSIONS 1. Myocardial perfusion imaging revealing moderate area of moderately decreased tracer uptake involving the inferior, inferolateral, anteroseptal and apical regions with significant reversibility suggesting myocardial scarring with ischemia predominantly in the distribution of the left anterior descending artery and right coronary artery with some involvement of the left circumflex artery. 2. Normal LV ejection fraction of 64%. 3. LV wall motion analysis revealing no gross wall motion abnormalities. 4. LV volume, upper limit of normal. No similar previous studies are available for comparison Dr Dell Patel MD [facility] (Electronically Signed) Final Date: 11 September 2024 Echocardiogram: CONCLUSIONS Possibly normal LV size and ejection fraction of 70%. Segmental wall motion analysis difficult because of poor ultrasonic windows. The basal inferolateral segment appears to be somewhat hypokinetic. The right atrium and the right angle appears to be mildly dilated. Right sided structures could not be visualized well. No gross morphologic abnormalities in the tricuspid and mild mitral valves. There is no pericardial effusion. Dilated IVC with decreased respiratory variation, suggesting right atrial pressure around 15 mmHg Comparison with the previous study is difficult because of the difference in the technical quality. Dr Dell Patel MD [facility] (Electronically Signed) Final Date: 08 September 2024 Laboratory Results WBC 8.84 10^3/uL (3.29-11.43) 09/12/24 03:18 RBC 4.12 10^6/uL (3.85-5.65) 09/12/24 03:18 Hgb 11.40 g/dL (11.27-16.99) 09/12/24 03:18 Hct 37.1 % (37-53) 09/12/24 03:18 MCV 90.0 fl (82-101) 09/12/24 03:18 MCH 27.7 pg (27-33) 09/12/24 03:18 MCHC 30.7 g/dL (30-55) 09/12/24 03:18 RDW 13.4 % (12.1-15.1) 09/12/24 03:18 Plt Count 239 10^3/cmm (157-399) 09/12/24 03:18 MPV 9.7 fL (7.4-10.4) 09/12/24 03:18 Neut % (Auto) 79.8 % 09/12/24 03:18 Lymph % (Auto) 10.2 % 09/12/24 03:18 [place] % (Auto) 9.2 % 09/12/24 03:18 Eos % (Auto) 0.0 % 09/12/24 03:18 Baso % (Auto) 0.1 % 09/12/24 03:18 Neut # (Auto) 7.06 10^3/uL (1.8-7.7) 09/12/24 03:18 Lymph # (Auto) 0.9 10^3/uL (0.8-4.8) 09/12/24 03:18 [place] # (Auto) 0.8 10^3/uL (0.2-0.9) 09/12/24 03:18 Eos # (Auto) 0.0 10^3/uL (0.0-0.8) 09/12/24 03:18 Baso # (Auto) 0.0 10^3/uL (0.0-0.1) 09/12/24 03:18 Nucleated RBC % (auto) 0 % 09/12/24 03:18 Nucleated RBCs # 0.0 /100WBC 09/12/24 03:18 PT 13.10 SECONDS (12.1-14.9) 09/07/24 16:01 INR 0.97 (0.8-1.2) 09/07/24 16:01 APTT 51.7 SECONDS (23.9-36.7) H 09/12/24 08:55 D-Dimer 0.44 ug/mLFEU (0-0.59) 09/07/24 16:01 Specimen Type Arterial 09/09/24 08:04 Sample Site Radial, right 09/09/24 08:04 ABG pH 7.25 (7.35-7.45) L 09/09/24 08:04 ABG pCO2 58.5 mmHg (35-45) H 09/09/24 08:04 ABG pO2 111.0 mmHg (80.0-100.0) H 09/09/24 08:04 ABG PO2/FiO2 Ratio 277 09/09/24 08:04 ABG HCO3 25.5 mmol/L (22-26) 09/09/24 08:04 ABG O2 Saturation 97.9 09/09/24 08:04 ABG Base Excess -2.5 mmol/L (-2.0-2.0) L 09/09/24 08:04 Dae Test Pos 09/09/24 08:04 A-a O2 Gradient 13.6 mmHg (5-10) H 09/09/24 08:04 Hematocrit 36.1 % (42-52) L 09/09/24 08:04 Hgb O2 Saturation 96.0 % (95-100) 09/09/24 08:04 Carboxyhemoglobin 0.7 %THgb (0.4-20.1) 09/09/24 08:04 Methemoglobin 1.3 % (0.4-1.5) 09/09/24 08:04 Total Hemoglobin 11.8 g/dL (14-18) L 09/09/24 08:04 Sodium 129.0 mmol/L (131-143) L 09/09/24 08:04 Potassium 4.6 mmol/L (3.5-5.0) 09/09/24 08:04 Glucose 240.0 mg/dL (70-115) H 09/09/24 08:04 Ionized Calcium 1.1 mmol/L (1.1-1.4) 09/09/24 08:04 O2 Delivery Device Nc 09/09/24 08:04 O2 Liters/Min 5.0 % 09/09/24 08:04 FiO2 40.0 % 09/09/24 08:04 Tidal Volume 0.50 09/08/24 13:54 PEEP 10.0 cmH20 09/08/24 13:54 Exec. Creative Director ID Monro 09/09/24 08:04 Sodium 138 mmol/L (136-145) 09/12/24 03:18 Potassium 4.7 mmol/L (3.5-5.1) 09/12/24 03:18 Chloride 98 mmol/L (98-107) 09/12/24 03:18 Carbon Dioxide 32 mmol/L (22-29) H 09/12/24 03:18 Anion Gap 12.7 (5-19) 09/12/24 03:18 BUN 43 mg/dL (8-23) H 09/12/24 03:18 Creatinine 1.0 mg/dL (0.7-1.2) 09/12/24 03:18 GFR Calculation 76.2 mL/min (90-130) L 09/12/24 03:18 Glucose 375 mg/dL (65-115) H 09/12/24 03:18 POC Glucose 316 mg/dL (70-110) H 09/12/24 06:30 Estimat Average Glucose 143 09/07/24 16:01 Hemoglobin A1c 6.6 % (4.0-6.0) H 09/07/24 16:01 Calculated Osmolality 312 mOsm/kg (285-295) H 09/12/24 03:18 Lactic Acid 2.6 mmol/L (0.5-2.2) H 09/07/24 16:01 Lactic Acid (Sepsis) 2.0 mmol/L (0.5-2.2) 09/07/24 18:42 Calcium 7.8 mg/dL (8.5-10.5) L 09/12/24 03:18 Phosphorus 7.0 mg/dL (2.5-4.5) H 09/08/24 02:21 Magnesium 2.1 mg/dL (1.7-2.3) 09/11/24 00:50 Iron 17 ug/dL (59-158) L 09/08/24 02:21 TIBC 229 mcg/dl 09/08/24 02:21 % Saturation 7.4 % (20-50) L 09/08/24 02:21 Unsat Iron Binding 212 ug/dL (112-347) 09/08/24 02:21 Total Bilirubin 0.2 mg/dL (0.15-1.2) 09/12/24 03:18 AST 24 U/L (0-40) 09/12/24 03:18 ALT 48 U/L (0-41) H 09/12/24 03:18 Alkaline Phosphatase 49 U/L (40-130) 09/12/24 03:18 Troponin T Baseline 484 ng/L (0-15) H* 09/07/24 16:01 Troponin T 120 Minute 472.0 ng/L (0-15) H 09/07/24 18:01 Delta Troponin T -12.0 ABS# (0-10) L 09/07/24 18:01 Troponin T Hi Sens 6Hr 436.7 ng/L (0-15) H 09/07/24 21:54 Troponin T Hi Sens 6Hr Delta -47.3 ng/L (0-12) L 09/07/24 21:54 C-Reactive Protein 70.2 mg/L (0.0-4.9) H 09/08/24 02:21 NT-Pro-B Natriuret Pep 7106 pg/mL (0-125) H 09/07/24 16:01 Total Protein 6.1 g/dL (6.6-8.7) L 09/12/24 03:18 Albumin 3.5 g/dL (3.5-5.2) 09/12/24 03:18 Globulin 2.6 g/dL (1.3-4.6) 09/12/24 03:18 Triglycerides 89 mg/dL (0-150) 09/09/24 05:51 Triglycerides Cancelled 09/09/24 05:51 Cholesterol 107 mg/dL (0-200) 09/09/24 05:51 Cholesterol Cancelled 09/09/24 05:51 LDL Cholesterol, Calc 54 mg/dL (50-129) 09/09/24 05:51 LDL Cholesterol, Calc Cancelled 09/09/24 05:51 Total VLDL Cholesterol 18 mg/dL (0-30) 09/09/24 05:51 Total VLDL Cholesterol Cancelled 09/09/24 05:51 HDL Cholesterol 35 mg/dL (60-100) L 09/09/24 05:51 HDL Cholesterol Cancelled 09/09/24 05:51 Cholesterol/HDL Ratio 3.06 mg/dL (1.0-5.00) 09/09/24 05:51 Cholesterol/HDL Ratio Cancelled 09/09/24 05:51 Vitamin B12 228 pg/mL (232-1245) L 09/08/24 02:21 Folate 6.6 ng/mL (4.5-32.2) 09/09/24 05:51 Procalcitonin 0.61 ng/mL (0-0.5) H 09/08/24 02:21 Urine Color Dark yellow (Yellow) A 09/07/24 19:35 Urine Appearance Turbid (CLEAR) A 09/07/24 19:35 Urine pH 5.0 (5-7) 09/07/24 19:35 Ur Specific [place] 1.025 (1.005-1.030) 09/07/24 19:35 Urine Protein 2+ (Negative) A 09/07/24 19:35 Urine Glucose (UA) Negative (Normal) 09/07/24 19:35 Urine Ketones Trace (Negative) 09/07/24 19:35 Urine Blood Non-haemolysed trace (Negative) 09/07/24 19:35 Urine Nitrate Negative (Negative) 09/07/24 19:35 Urine Bilirubin Negative (Negative) 09/07/24 19:35 Urine Urobilinogen 1.0 mg/dL (Negative) 09/07/24 19:35 Ur Leukocyte Esterase Negative (Negative) 09/07/24 19:35 Urine RBC 0-2 /hpf (0-2) 09/07/24 19:35 Urine WBC 0-5 /hpf (0-5) 09/07/24 19:35 Ur Eosinophil Smear 0 (0-0) 09/08/24 15:05 Ur Squamous Epith Cells 0-5 /hpf (0-5) 09/07/24 19:35 Ur Transition Epith Cell 0-4 /hpf 09/07/24 19:35 Amorphous Sediment 1+ /hpf 09/07/24 19:35 Urine Bacteria None seen /hpf (NONE) 09/07/24 19:35 Hyaline Casts 54.20 /lpf 09/07/24 19:35 Urine Eosinophils No eosinophils seen 09/08/24 15:05 Ur Random Sodium 25 mmol/L 09/08/24 15:05 Ur Random Potassium 26 mmol/L 09/08/24 15:05 Ur Random Chloride 10 mmol/L 09/08/24 15:05 Urine Creatinine 158 mg/dL (39-259) 09/08/24 15:05 Nasal MRSA (PCR) Not detected (Negative) 09/08/24 14:03 Coronavirus (PCR) Negative (Negative) 09/07/24 16:25 Influenza A (PCR) Positive (Negative) 09/07/24 16:25 Influenza Type B (PCR) Negative (Negative) 09/07/24 16:25 RSV (PCR) Negative (Negative) 09/07/24 16:25 Vitals Last Vital Signs Temp 98.1 F 09/12/24 07:45 Pulse 78 09/12/24 07:45 Resp 20 H 09/12/24 07:45 BP 142/88 09/12/24 07:45 Pulse Ox 96 09/12/24 07:45 O2 Del Method Nasal Cannula 09/12/24 07:45 O2 Flow Rate 2 09/12/24 07:45 FiO2 30 09/12/24 00:25 Discharge Plan Discharge Patient Disposition: Home Condition: Stable Prescriptions: New clopidogrel 75 mg Tablet 75 mg PO DAILY Qty: 30 0RF aspirin 81 mg Tablet,Delayed Release (Dr/Ec) 81 mg PO DAILY Qty: 30 0RF tamsulosin 0.4 mg Capsule 0.4 mg PO DAILY Qty: 30 0RF metoprolol tartrate 25 mg Tablet 25 mg PO BID Qty: 60 0RF guaifenesin [Mucinex] 600 mg Tablet Extended Release 12hr 1,200 mg PO ,21 10 Days Qty: 40 0RF prednisone 10 mg tablet See Taper PO DIRECTED Qty: 42 0RF Taper: predniSONE 60-10 60 mg Daily for 2 Days and 0 Hour 50 mg Daily for 2 Days and 0 Hour 40 mg Daily for 2 Days and 0 Hour 30 mg Daily for 2 Days and 0 Hour 20 mg Daily for 2 Days and 0 Hour 10 mg Daily for 2 Days and 0 Hour Rx Instructions: see taper instructions oseltamivir [Tamiflu] 75 mg capsule 75 mg PO BID 2 Days Qty: 4 0RF amoxicillin-pot clavulanate 875-125 mg tablet 1 tab PO Q12H 2 Days Qty: 4 0RF Continued fluticasone propion-salmeterol 250-50 mcg/dose blister with device 1 inh INHALATION BID atorvastatin 20 mg tablet 20 mg PO DAILY albuterol sulfate 2.5 mg /3 mL (0.083 %) solution for nebulization 2.5 mg inhalation Q4H PRN (Reason: Cough and wheezing) glyburide 5 mg tablet 50 mg PO DAILY sildenafil 100 mg tablet See Rx Instructions .ROUTE .COMPLEX Rx Instructions: TAKE 1 TAB BY MOUTH 30 MINUTES PRIOR TO INTERCOURSE NEEDED, NO NITRATES gabapentin 300 mg capsule 300 mg PO TID albuterol sulfate 90 mcg/actuation HFA aerosol inhaler 1 puff INHALATION Q6H PRN (Reason: Shortness Of Breath) fluticasone propionate 50 mcg/actuation spray,suspension 2 spray INTRANASAL DAILY Trulicity 1.5 mg/0.5 mL pen injector 1.5 mg SUBCUT Q7D Rx Instructions: on Tuesday Spiriva Respimat 1.25 mcg/actuation mist 2 inh INHALATION DAILY Held lisinopril 10 mg tablet 10 mg PO DAILY Hold Instructions: Resume on 09/26/24. Discontinued ibuprofen [IBU] 800 mg tablet 800 mg PO TID PRN (Reason: Pain) metformin 1,000 mg tablet 1,000 mg PO BID hydrochlorothiazide 25 mg tablet 25 mg PO DAILY Discharge Orders: Discharge Order (Routine); Ordered 09/12/24 Ordered By: Octavio Lainez Referrals: Shaniqua Carey MD [Primary Care Provider] - 09/20/24 8:30 am (Records were sent 09/12 to PCP ) Jaonne Santo FNP [Nurse Practitioner] - 10/08/24 1:00 pm Rad Darby [Referring] - 2 weeks (Urinary retention with CRISPIN) Discharge Diet: Cardiac and Diabetic Discharge Activity: Resume usual activity and Increase activity as tolerated Patient Instructions: Heart Attack (DC), Sepsis (DC), Chronic Hypertension (DC), Stress Echocardiogram (DC), High Troponin Levels (ED), Opioid Safety Activity Restrictions/Additional Instructions: Goal blood pressure of less than 140/90 mmHg. Please check your blood pressure daily at home maintain a blood pressure diary. Follow-up with a primary care provider within next 10 days with a blood pressure diary for further adjustment of antihypertensive. Take metoprolol 25 mg twice daily. Hold lisinopril for next 1 week. Do not take ibuprofen given your recent history of kidney injury. Metformin has been stopped. Take aspirin and Plavix daily. Please follow-up with nurse blood pressure at cardiology office within next 1 week. If Ruiz catheter remains in place for more than 4 weeks or should be replaced. Discharge Attestations Time Spent in Discharge Care*: greater than 30 min Specific Discharge Activities: educating patient, educating and/or supporting family/caregiver, discussing with pcp/other providers, discussing with manager of case/social workers/dc planners, documenting/other paperwork and evaluating patient/reviewing data Status at Discharge: Cognitive status at discharge: cognitively intact, Behavioral status at discharge: cooperative, Functional status at discharge: uses cane/walker, Overall status at discharge: patient is back to baseline Quality Metrics Clinical Quality Measures [ Acute Myocardial Infaction { Clinical Trial Participant: No; Contraindication to aspirin: None; Aspirin prescribed; Contraindication to statin: None; Statin prescribed; Contraindication to PCI: Treatment delay - patient choice;}] Coding Level of Care Code 64758 Total time (in minutes) for Discharge: 70 Diagnoses Positive cardiac stress test R94.39 Elevated troponin R79.89 Type 2 diabetes mellitus without complication, with long-term current use of insulin E11.9; Z79.4 Diabetes mellitus complication status: without complication Diabetes mellitus long term acute care registered nurse insulin use: with correction use Morbidly obese E66.01 Acute and chronic respiratory failure with hypercapnia J96.22 Dyslipidemia E78.5
--- NOTE | 2024-09-12 10:46 | PM.PN ---
Subjective Subjective: Patient doing well with no chest pain. No shortness of breath. Vital signs are stable. Medications: Reviewed: Yes Vitals/I&O/Wt Last Vital Signs Temp 98.1 F 09/12/24 07:45 Pulse 78 09/12/24 07:45 Resp 20 H 09/12/24 07:45 BP 142/88 09/12/24 07:45 Pulse Ox 96 09/12/24 07:45 O2 Del Method Nasal Cannula 09/12/24 07:45 O2 Flow Rate 2 09/12/24 07:45 FiO2 30 09/12/24 00:25 09/11/24 09/12/24 09/12/24 22:59 06:59 14:59 Intake Total 250 / 975.6 334.400 / 1310.000 360 / 360 Output Total 2100 / 3200 900 / 4100 Balance -1850 / -2224.4 -565.600 / -2790.000 360 / 360 Weight last 48 hrs Weight 342 lb 9.6 oz Weight 342 lb 6.4 oz Physical Exam Narrative: General: No apparent distress, healthy appearing, well nourished Muskuloskeletal: Full ROM Respiratory: Normal respiratory effort, clear to auscultation bilaterally throughout all lung bales, no use of accessory muscles Cardio: No JVD, regular rate, regular rhythm, S1 S2 normal, no murmurs GI: Normal to inspection, nondistended Extremities: Full ROM, normal, normal capillary refill, no cyanosis, trace edema bilaterally Neuro: Alert and oriented x4, no focal motor deficits Psych: Affect normal, denies suicidal ideation, mental status grossly normal Skin: No rashes or lesions noted, no wounds Urinary Catheter Management: Ruiz: Cath Placed During This Visit: yes Reason for Continuing Indwelling Catheter: Acute Urinary Retention or Obstruction Urinary Catheter Date of Insertion: 09/07/24 Urinary Catheter Time of Insertion: 19:37 Data 09/12/24 03:18 09/12/24 03:18 A&P Assessment and plan (1) Positive cardiac stress test: The abnormal Myocardial perfusion imaging is suggestive of ischemia in the distribution of the left anterior descending artery and right coronary artery. Patient has no specific symptoms pertaining to coronary disease at this time. However in view of his multiple risk factors, he carries a higher risk for recurrent coronary events. For further evaluation of his coronary status, he may benefit from a cardiac catheterization. (2) Elevated troponin: This could be related to type II AK. However in view of the abnormal Myocardial perfusion imaging, it would be appropriate to treat him as a non-ST elevation myocardial infarction. Patient to continue Plavix 75 mg p.o. daily. Continue the aspirin. Continue isosorbide mononitrate 30 mg p.o. daily. Continue the statin and a low-dose of beta-herbert. (3) Type 2 diabetes mellitus: Management as per the primary. Qualifiers: Diabetes mellitus long-term insulin use: with long-term use Diabetes mellitus complication status: without complication Qualified Code(s): E11.9 - Type 2 diabetes mellitus without complications; Z79.4 - senior care (current) use of insulin (4) Morbidly obese: Patient seems to understand the importance of lifestyle modifications. (5) Acute and chronic respiratory failure with hypercapnia: Currently on BiPAP. Optimize treatment as per the primary (6) Dyslipidemia: May continue on the atorvastatin. Plan Continue the Plavix. Metoprolol 12.5 mg p.o. twice daily, the dose may be gradually increased Continue the statin Medication may be continued. Patient requires a cardiac catheterization to further evaluate his coronary status. However because of his multiple respiratory complications and the recent influenza A infection, and shared decision was made to hold off on the further cardiac workup at least for another week unless he develops any increasing symptoms. Will see patient in the clinic at that time. 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
[2024-09-12 11:53] LABS: Glucose Point of Care 469 mg/dL (70-110)
== END 2024-09-12 12:30 | disposition home or self-care (01) | DRG 280 ==
LOC: ER 19:49 → ICU 20:57 → CSU 09-10 19:43
PROVIDERS: Internal Medicine; Admitting Provider Internal Medicine; Emergency Provider Emergency Medicine; PCP Internal Medicine; Visit Provider Student in an Organized Health Care Education/Training Program
DX: I21.4 Non-ST elevation (NSTEMI) myocardial infarction (principal); A41.9 Sepsis, unspecified organism; J18.9 Pneumonia, unspecified organism; J96.21 Acute and chronic respiratory failure with hypoxia; J96.22 Acute and chronic respiratory failure with hypercapnia; R65.21 Severe sepsis with septic shock; Z68.42 Body mass index [BMI] 45.0-49.9, adult; N17.9 Acute kidney failure, unspecified; J44.0 Chronic obstructive pulmonary disease with (acute) lower respiratory infection; J44.1 Chronic obstructive pulmonary disease with (acute) exacerbation; E78.5 Hyperlipidemia, unspecified; E66.01 Morbid (severe) obesity due to excess calories; E11.22 Type 2 diabetes mellitus with diabetic chronic kidney disease; I12.9 Hypertensive chronic kidney disease with stage 1 through stage 4 chronic kidney disease, or unspecified chronic kidney disease; N18.9 Chronic kidney disease, unspecified; J10.1 Influenza due to other identified influenza virus with other respiratory manifestations; R33.9 Retention of urine, unspecified; R91.1 Solitary pulmonary nodule; R06.81 Apnea, not elsewhere classified; Z87.891 Personal history of nicotine dependence; Z79.85 Long-term (current) use of injectable non-insulin antidiabetic drugs; Z79.84 Long term (current) use of oral hypoglycemic drugs; Z99.81 Dependence on supplemental oxygen
CPT/HCPCS: 0241U; 36415; 36416; 36600; 51702; 71045; 71250; 74176; 78452; 80048; 80051; 80053; 80061; 81001; 82330; 82436; 82570; 82607; 82746; 82803; 82805; 82962; 83036; 83540; 83550; 83605; 83735; 83880; 84100; 84133; 84145; 84300; 84484; 85025; 85378; 85610; 85730; 85999; 86140; 86403; 87040; 87449; 93005; 93308; 94640; 94660; 96365; 96367; 96372; 96374; 96375; 96376; 99255; 99291; A9500; J0612; J0696; J1644; J1815; J1940; J2020; J2185; J2470; J2785; J2919; J3420; J7030; J7613; J7614; J7626; J7644; J7799; Q0144

== ENCOUNTER 2024-12-31 20:00 | Outpatient (CLI) | payer MEDICARE, SELFPAY | END 2024-12-31 20:01 | disposition home or self-care (01) | LOC: SLEEP 23:43 | PROVIDERS: PCP Internal Medicine; Visit Provider Internal Medicine | DX: G47.33 Obstructive sleep apnea (adult) (pediatric) (principal) | CPT/HCPCS: 95811 ==

== ENCOUNTER 2025-03-20 09:58 | Outpatient (CLI) | payer MEDICARE, SELFPAY ==
--- NOTE | 2025-03-20 10:08 | XRR_ITS ---
PROCEDURE INFORMATION: Exam: XR Chest Exam date and time: 03/20/2025 10:13 AM Age: 59 years old Clinical indication: Shortness of breath; Additional info: Hypoxemia and copd TECHNIQUE: Imaging protocol: Radiologic exam of the chest. Views: 2 views. COMPARISON: CR XR chest 1V portable [id number] 09/09/2024 8:45 AM FINDINGS: Lungs: Similar faint opacities in the lung bases, concerning for infection or atelectasis. Pulmonary vascular prominence. Pleural spaces: No sizable pleural effusion or pneumothorax. Heart/Mediastinum: Stable cardiomegaly. Diaphragm: Similar elevation of the left hemidiaphragm. Bones/joints: Unremarkable. XR/XR chest 2V* [id number] IMPRESSION: Similar faint opacities in the lung bases, concerning for infection or atelectasis.
== END 2025-03-20 09:59 | disposition home or self-care (01) ==
PROVIDERS: PCP Internal Medicine; Visit Provider Nurse Practitioner Family
DX: R09.02 Hypoxemia (principal); J44.9 Chronic obstructive pulmonary disease, unspecified; R91.8 Other nonspecific abnormal finding of lung field; I51.7 Cardiomegaly; R93.89 Abnormal findings on diagnostic imaging of other specified body structures
CPT/HCPCS: 71046

== ENCOUNTER 2025-03-25 12:17 | Observation (INO) | payer MEDICARE, SELFPAY ==
--- OUTSIDE RECORDS SUMMARY | 2024-11-21 04:15 | XMS_ITS ---
Author Organization [facility] Address [address] [place] [address] Care Team Providers Care Business Trainer Name Role Phone Shaniqua Carey MD Primary Care Provider Ramakrishnaab Florentino Pineda [phone] Lori Palomino Unavailabl e REASON FOR VISIT 4 WEEK HOSPITAL FOLLOW UP S/P [facility] Encounters Encounter Location Date Provider Diagnosis [facility] [address] [place] [address] 11/21/2024 Florentino Pink Plan Of Treatment No Information Progress Notes * FLAKITA YAO GomezDOB:1965 (59 yo M)Acc No.[id number]:11/21/2024 Patient: CLARK SONRAMAN Gomez Provider: Inna Pink MD :1965 A ge:59 Y S ex:Male Date:11/21/2024 Address:[address] [place], [place] [id number] Pcp:Shaniqua Carey MD Subjective: * Chief Complaints: * 1 . 4 WEEK HOSPITAL FOLLOW UP S/P [facility]. * Medical History: Objective: * Vitals: Assessment: Plan: * Treatment: * Billing Information: * Visit Code: * Procedure Codes: * Electronic signature of David Pink MD on 03/25/2025 at 12:22 PM CDT Sign off status: Pending * Provider: Inna Pink MD Date: 11/21/2024 Generated for Printi ng/Faxing/eTransmitting on: 0 03/25/2025 12:22 PM CDT
--- OUTSIDE RECORDS SUMMARY | 2024-11-21 04:15 | XMS_ITS ---
Author Organization [facility] Address [address] [place] [address] Care Team Providers Care Beer Runner Name Role Phone Shaniqua Carey MD Primary Care Provider Ramakrishnaab Florentino Pineda [phone] Lori Palomino Unavailabl e REASON FOR VISIT 4 WEEK HOSPITAL FOLLOW UP S/P [facility] Encounters Encounter Location Date Provider Diagnosis [facility] [address] [place] [address] 11/21/2024 Florentino Pink Plan Of Treatment No Information Progress Notes * FLAKITA YAO GomezDOB:1965 (59 yo M)Acc No.[id number]:11/21/2024 Patient: CLARK SONRAMAN Gomez Provider: Inna Pink MD :1965 A ge:59 Y S ex:Male Date:11/21/2024 Address:[address] [place], [place] [id number] Pcp:Shaniqua Carey MD Subjective: * Chief Complaints: * 1 . 4 WEEK HOSPITAL FOLLOW UP S/P [facility]. * Medical History: Objective: * Vitals: Assessment: Plan: * Treatment: * Billing Information: * Visit Code: * Procedure Codes: * Electronic signature of David Pink MD on 03/26/2025 at 03:11 PM CDT Sign off status: Pending * Provider: Inna Pink MD Date: 11/21/2024 Generated for Printi ng/Faxing/eTransmitting on: 03/26/2025 03:11 PM CDT
--- OUTSIDE RECORDS SUMMARY | 2024-12-06 05:00 | XMS_ITS ---
Author Organization [facility] Address [address] [facility] [address] Care Team Providers Care Deputy Chief Magistrate Name Role Phone Shaniqua Carey MD Primary Care Provider Ramakrishnaab Florentino Pineda [phone] Lori Palomino Unavailabl e REASON FOR VISIT 4 WEEK HOSPITAL FOLLOW UP S/P [facility] Encounters Encounter Location Date Provider Diagnosis [facility] [address] [place] [address] 12/06/2024 Florentino Pink Plan Of Treatment No Information Progress Notes * FLAKITA YAO GomezDOB:1965 (59 yo M)Acc No.[id number]:12/06/2024 Patient: CLARK SONRAMAN Gomez Provider: Inna Pink MD :1965 A ge:59 Y S ex:Male Date:12/06/2024 Address:[address] [place], [place] [id number] Pcp:Shaniqua Carey MD Subjective: * Chief Complaints: * 1 . 4 WEEK HOSPITAL FOLLOW UP S/P [facility]. * Medical History: Objective: * Vitals: Assessment: Plan: * Treatment: * Billing Information: * Visit Code: * Procedure Codes: * Electronic signature of David Pink MD on 03/25/2025 at 12:22 PM CDT Sign off status: Pending * Provider: Inna Pink MD Date: 12/06/2024 Generated for Printi ng/Faxing/eTransmitting on: 03/25/2025 12:22 PM CDT
--- OUTSIDE RECORDS SUMMARY | 2024-12-06 05:00 | XMS_ITS ---
Author Organization [facility] Address [address] [place] [address] Care Team Providers Care Dairy Tester Name Role Phone Shaniqua Carey MD Primary Care Provider Ramakrishnaab Florentino Pineda [phone] Lori Palomino Unavailabl e REASON FOR VISIT 4 WEEK HOSPITAL FOLLOW UP S/P [facility] Encounters Encounter Location Date Provider Diagnosis [facility] [address] [place] [address] 12/06/2024 Florentino Pink Plan Of Treatment No Information Progress Notes * FLAKITA YAO GomezDOB:1965 (59 yo M)Acc No.[id number]:12/06/2024 Patient: CLARK SONRAMAN Gomez Provider: Inna Pink MD :1965 A ge:59 Y S ex:Male Date:12/06/2024 Address:[address] [place], [place] [phone] Pcp:Shaniqua Carey MD Subjective: * Chief Complaints: [...] Date: 12/06/2024 Generated for Printi ng/Faxing/eTransmitting on: 03/26/2025 03:11 PM CDT
[2025-03-25] VITALS (10 sets, daily range): BP systolic 121–164; BP diastolic 75–92; PULSE 96–114; RESP 16–22; TEMP 36.4; O2SAT 90–98
--- OUTSIDE RECORDS SUMMARY | 2025-03-25 12:21 | XMS_ITS | Patient Health Record ---
Author Organization [facility] Address [address] [place], [place] [id number] Care Team Providers Care Mine Inspector Name Role Phone Luis Bonilla MD Primary Care Provider Page Escobar MD, [facility] [phone] Reason For Referral No Information Medications Medication SIG (Take, Route, Frequency, Duration) Notes Start Date End Date Status Spiriva 18 mcg inhaled as directed Active fluticasone nasal 50 mcg/inh intranasally as directed Act abdulkadir Advair Diskus 500 mcg-50 mcg inhaled as directed Active Mucinex 600 mg 1 tab orally every 1 2 hours, as needed Active magnesium oxide 250 mg orally as directed Active ibuprofen 800 mg 1 tab orally every 8 hours, as needed Active albuterol 5 mg/mL 0.5 mL inhaled every 6 hours Active Social History Tobacco Use: Social History Observation Description Date Details (start date - stop date) Former Smoker NA - NA Tobacco use: Question Answer Notes : former smoker How long has it been since you last smoked? > 10 years Problems Problem Type SNOMED Code ICD Code Onset Dates Problem Status W/U Status Risk Notes Problem Solitary sacroiliitis (100251807) Sacroiliitis, not elsewhere classified (M46.1) Active confirmed Problem Low back pain (301650957) Low back pain (M54.5) Active confirmed Problem Lumbosacral spondylosis without myelopathy (41704064) Spondylosis without myelopathy or radiculopathy, lumbar region (M47.816) Active confirmed Problem Anxiety disorder (393661889) Other specified anxiety disorders (F41.8) Active confirmed Problem Obstructive sleep apnea syndrome (78825721) Obstructive sleep apnea (adult) (pediatric) (G47.33) Active confirmed Problem Radiculopathy due to lumbar intervertebral disc disorder (536121737189576) Intervertebral disc disorders with radiculopathy, lumbar region (M51.16) Active confirmed Problem Long-term current use of drug therapy (863087911) Other extermination supervisor (current) drug therapy (Z79.899) Active confirmed Plan Of Treatment No Information Insurance Providers Payer Name Payer Address Payer Phone Subscriber Number Group Number Insured Name Patient Relationship to Insured Coverage Start Date Coverage End Date [employer] Medicare Part B Claims Department [address] [address] [place] [address] [id number] Waltre Medina Self - patient is the insured [place] [address] [place] [address] [id number] Walter Medina Self - patient is the insured Medical (General) History Medical History History ICD Code Chronic obstructive pulmonary disease Chronic pain Chronic low back pain 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
--- OUTSIDE RECORDS SUMMARY | 2025-03-25 12:22 | XMS_ITS | Patient Health Record ---
Author Organization [facility] Address [address] [place] [address] Care Team Providers Care Strap Folding Machine Operator Name Role Phone Unknown, Unknown Primary Care Provider Unavailab Lopez Castillo Unavailable [phone] Allergies No Known Allergies Reason For Referral No Information Medications Medication SIG (Take, Route, Fr equency, Duration) Notes Start Date End Date Status Advair Diskus Active Incruse Ellipta Acti ve Benazepril HCl Activ e metFORMIN HCl Active Social History Sex Assigned At : Social History Observation Description Sex Assigned At Male Vital Signs Heart Rate 105 /min 11/20/2024 Temperature 98.1 degrees Fahrenheit 11/20/2024 Blood pressure diastolic 76 mm Hg 11/20/2024 Blood pressure systolic 128 mm Hg 11/20/2024 Encounters Encounter Location Date Provider Diagnosis [facility] [address] [place] [address] 11/26/2024 Lopez Reyes [facility] [address] [place] [address] 03/28/[address] [facility] [facility] [address] [place] [address] 06/11/2024 Lopez Reyes [facility] [address] [place] [address] 08/07/2024 Lopez Reyes [facility] [address] [place] [address] 08/30/2024 Lopez Reyes [facility] [address] [place] [address] 10/09/[address] [facility] [facility] [address] [place] [address] 11/20/2024 Lopez Reyes [facility] [address] [place] [address] 08/31/2024 Lopez Reyes [facility] [address] [place] [address] 10/10/2024 Lopez Reyes Plan Of Treatment No Information Insurance Providers Payer Name Payer Address Payer Phone Subscriber Number Group Number Insured Name Patient Relationship to Insured Coverage Start Date Coverage End Date [employer] CLAIM[employer] OFFICE [address] [place] [phone] [id number] YAO MEDINA Self - patient is the insured Medical (General) History Medical History History ICD Code Asthma Diabetes High Blood Pressure Sinus Trouble COPD Oxygen Tank Hospitalization History Reason Date(Month/Year) Pnemonia 05/2024
--- OUTSIDE RECORDS SUMMARY | 2025-03-25 12:22 | XMS_ITS | Patient Health Record ---
Author Organization [facility] Address [address] [place] [address], [place] [address] Care Team Providers Care Wheelage Clerk Name Role Phone Shaniqua Carey MD Primary Care Provider UnavailFlorentino Dickerson Unavailable [phone] Lori Palomino Unavailable Unavailabl Arnol Hollins Unavailable [phone] Allergies No Known Allergies Results Component Value Reference Range Notes zzzCT Outside CD Reviewed date:07/25/2024 03:38:50 PM Interpretation: Performing Lab: Notes/Report: qsx=[id number]=iSite Prothrombin Time 24216 (Not yet reviewed by provider) Interpretation: Performing Lab: Notes/Report: Diagnosis Description: Abnormal result of other cardiovascular function study Diagnosis Description: Non-ST elevation (NSTEMI) myocardial infarction ProTime 11.0 9.1-11.9 SEC Normal Range: 9 .1-11.9 INR 1.04 .90-1.20 Therapeutic Range: 2.0-3.0 Therapaeutic Range for heart valve replacement: 2.5-3.50 Basic Metabolic Panel (BMP) 19282 (Not yet reviewed by provider) Interpretation: Performing Lab: Notes/Report: Diagnosis Description: Abnormal result of other cardiovascular function study Diagnosis Description: Non-ST elevation (NSTEMI) myocardial infarction Sodium 136 136-145 MMOL/L Potassium 4.0 3.5-5.1 MMOL/L Chloride 97 98-107 MMOL/L CO2 33.2 20.0-31.0 MMOL/L Glucose Serum 130 71-110 MG/DL Testing perfor med at [facility], [address] [place], [place] [address] [address]. CLIA ID#: [id number] BUN 14 7-21 MG/DL Creat .64 .57-1.17 MG/DL L-lbjynk-k-benzoquinone imine (NAPQI) is a metabolite of acetaminophen, NAPQI concentrations of apparoximately 10 mg/L correlation to toxic levels of acetaminophen demonstrates a greater than or equil to 10% change in results. NAPQI concentrations greater than this may lead to falsely depressed results for patient samples. Use of this assay is not recommended for patients undergoing treatment with phenindione, due to the potential for falsely depressed results. GFR 108.1 Calculation per formed from GFR calculator provided by the [employer]. Glomerular Filtration rate(GRF) is the best overall index of kidney function. Normal GFR varies according to age,sex, body size, and declines with age. The [employer] recommends using the CKD-EPI Creatinine Equation(2020) to estimate GFR. Anion Gap 10 5-15 BUN/Creat Ratio 21.9 12.0-20.0 % Calcium 9.3 8.7-10.4 MG/DL Osmo Serum,Calculated 284 280-300 MOSM/KG Lipid Panel Reflex DLDL 800 1, 08930 (Not yet reviewed by provider) Interpretation: Performing Lab: Notes/Report: Diagnosis Description: Abnormal result of other cardiovascular function study Diagnosis Description: Non-ST elevation (NSTEMI) myocardial infarction Trig 68 Classification Guidelines:Triglycerides Adults: >20yrs Desirable <150 Borderline High 150-199 High 200-499 Very high >=500 Children: Male 0-4 yr 22-99 5-9 yr 30-101 10-14 yr 32-125 15-19 yr 37-148 Children: Female 0-4 yr 34-112 5-9 yr 32-105 10-14 yr 37-131 15-19 yr 39-132 Chol 108 <=200 MG/DL HDL 34 30-72 MG/DL Reference Ranges:HDL Male: 5-9y 38-75 10-14y 37-74 15-19y 30-63 >=20y 40-59 Female: 5-9y 36-73 10-14y 37-70 15-19y 35-74 >=20y 40-59 CH/HDL 3.2 0.0-4.9 RATIO LDL 61 0-130 MG/DL LDL result is i naccurate , if Trig is >400 mg/dl. See DLDL result. Partial Thromboplastin Time 35462 (Not yet reviewed by provider) Interpretation: Performing Lab: Notes/Report: Diagnosis Description: Abnormal result of other cardiovascular function study Diagnosis Description: Non-ST elevation (NSTEMI) myocardial infarction PTT 25.8 22.6-31.8 SEC Therapeutic Range: 60-100. Critical Value Starting at > 100. CBC Reflex Man Diff 11977, 8 5007 (Not yet reviewed by provider) Interpretation: Performing Lab: Notes/Report: Diagnosis Description: Abnormal result of other cardiovascular function study Diagnosis Description: Non-ST elevation (NSTEMI) myocardial infarction WBC 8.8 4.5-11.0 X10'3 RBC 4.63 4.50-5.90 X10'6 Hgb 13.1 13.5-17.5 G/DL Hct 41.7 41.0-53.0 % MCV 90.1 80.0-100.0 FL MCH 28.3 27.0-31.0 PG MCHC 31.4 31.0-37.0 G/DL Platelet 229 150-400 X10'3 RDW-SD 43.6 35.0-49.0 FL RDW-CV 13.2 12.2-15.6 % MPV 9.4 9.2-12.0 FL Review Auto Diff Conf WBC Auto Diff--18000 (Not ye t reviewed by provider) Interpretation: Performing Lab: Notes/Report: Added by Discern Rules Neutro Auto% 61.7 40.0-70.0 % Lymph Auto% 25.5 22.0-44.0 % [place]ock Auto% 7.7 3.0-7.0 % Eos Auto% 3.7 2.0-4.0 % Baso Auto% 1.1 0.0-1.0 % NRBC% .00 .00-.20 /100 int act WBC's Neutro Abs 5.40 .80-7.70 Absolute Neutrophil Count 5400 Lymph Abs 2.23 .10-4.10 [place] Abs .67 .20-1.00 Eos Abs .32 .00-.40 Baso Abs .10 .00-.20 NRBC# .00 .00-.20 Imm Gran Abs .03 .00-.10 Imm Gran% .3 .0-.4 % zzzHeart Cath Lt poss PTCA ( Not yet reviewed by provider) Interpretation: Performing Lab: Notes/Report: mqe=[id number]&org=iSite Schedule Confirmation (Not y et reviewed by provider) Interpretation: Performing Lab: Notes/Report: Heart Cath Lt poss PTCA zzzHeart Cath Lt poss PTCA ( Not yet reviewed by provider) Interpretation: Performing Lab: Notes/Report: See Below For Report This report was dictated outside of the RadNet system. Read See Below For Report zzzCT Outside CD Reviewed date:07/23/2024 05:11:24 PM Interpretation: Performing Lab: Notes/Report: azp=[id number]&org=iSite Reason For Referral Reason Multiple Nodule of L jose miguel / O2 Dependent / COPD 06/18: End of Jun, beginning jul, per Graham Scheduled 07/25/24 @ 10:30 AM Diagnosis 1 Multiple nodules of lung (R91.8) Diagnosis 2 COPD (chronic obstru ctive pulmonary disease) (J44.9) Diagnosis 3 Supplemental oxygen dependent (Z99.81) Referring Provider First Name Lori Referring Provider Last Name Violet Referring Provider Speciality Nurse Prac sigridr Referred Organization [facility] Referred Provider Arnol Stevenson Referred Address [address] [place] [address] [address],[place], [place],[address], Referred Provider Specialty Pulmonary Di seas General Notes [place] Harris 024 08:56:36 AM >Imaging done @ [facility] in [facility] on 05/30/24., [place] Harris 06/05/2024 08:57:31 AM >Called and spoke to nurse. She was able to find entire discharge report with CT in there. Will try and fax it to us. Is aware we need the report for scheduling., [place] Harris 06/06/2024 12:59:15 PM >06/06/24: CT Report Recieved, Rand Harris 06/06/2024 01:06:55 PM >imaging disc request faxed to [facility] radiology, Rand Harris 06/18/2024 12:56:24 PM >06/18-Received DiscSteven Marie 06/18/2024 01:03:53 PM >06/18: G[facility] to [facility] to review, Rand Harris 06/18/2024 04:52:30 PM >06/18: End of Jun, beginning of Jul, per Steven Stevenson Marie 06/22/2024 08:56:59 AM >06/18-Steven Olivares Marie 06/22/2024 09:01:30 AM >Scheduled 07/25/24 @ 10:30 AM Referral Priority Urgent Reason APPT 10/10/24 AT 10:[address] PINK. Positive cardiac stress test Diagnosis 1 Positive cardiac str ess test (R94.39) Referring Provider First Name Lori Referring Provider Last Name Violet Referring Provider Speciality Nurse Clara lopez Referred Organization [facility] Referred Provider Florentino Pink Referred Address [address] [place] [address],[place],[address], Referred Provider Specialty Intervention al Cardiology Referral Priority Routine Medications Medication SIG (Take, Route, Frequency, Duration) Notes Start Date End Date Status glyBURIDE 5 MG 1 tablet with breakfast or the first main meal of the day Orally Once a day Active hydroCHLOROthiazide 25 MG 1 tablet in morning Orally Once a day Active Fluticasone-Salmeterol 250-5 0 MCG/ACT 1 puff Inhalation Twice a day 07/25/2024 Active Tylenol 325 MG 1 tablet as needed Orally every 6 hrs Active Gabapentin 300 MG 1 capsule Orally thr ee times a day Active Viagra 100 MG 1 tablet as needed Orally Once a day Active Albuterol Sulfate (2.5 MG/3ML) 0.083% 3 mL as needed Inhalation every 6 hrs Active Metoprolol Tartrate 25 MG 1 tablet with food Orally Twice a day Active Albuterol Sulfate HFA 108 (9 0 Base) MCG/ACT 1 puff as needed Inhalation every 4 hrs Active Mucinex 600 MG 1 tablet as needed Orally every 12 hrs Active Aspirin 81 MG 1 tablet Orally Once a day Active Lisinopril 10 MG 1 tablet Orally Once a day Active Advair Diskus 250-50 MCG/ACT 1 puff Inha lation Twice a day Active metFORMIN HCl 1000 MG 1 tablet with a me al Orally BID Active CeleBREX 100 MG 1 capsule Orally twi ce a day Active Atorvastatin Calcium 20 MG 1 tablet Oral ly Once a day Active Spiriva Respimat 1.25 MCG/ACT 2 puffs In halation Once a day Active Benzonatate 100 MG 1 capsule as needed Orally Three times a day Active Tamsulosin HCl 0.4 MG 1 capsule Orally O nce a day Active Trulicity 1.5 MG/0.5ML as directed Subcutaneous weekly Active Social History Tobacco Use: Social History Observation Description Date Details (start date - stop date) Former Smoker NA - NA Tobacco Control (Standard) Question Answer Notes Tobacco use: Former smoker How long has it been since you last smoked? Grea ter than 10 years Section Notes: alcohol - neg caffeine - pos3-4 cups daily marijuana/drug use - denies Problems Problem Type SNOMED Code ICD Code Onset Dates Problem Status W/U Status Risk Notes Problem Essential hypertension (14146682) Essential (primary) hypertension (I10) Active confirmed Problem [id number] Abnormal chest CT (R93.89) Active confirmed Problem 905275654064965 Type 2 diabetes mellitus with hyperglycemia, without long-term current use of insulin (E11.65) Active confirmed Problem COPD - Chronic obstructive pulmonary disease (45842791) COPD (chronic obstructive pulmonary disease) (J44.9) Active confirmed Problem Dependence on supplemental oxygen (533030350158) Supplemental oxygen dependent (Z99.81) Active confirmed Problem 826287214 Chronic hypercapnic respiratory failure (J96.12) Active confirmed Problem 886767997 Stress-induced cardiomyopathy (I51.81) Active confirmed Problem 910351648 Non Q wave myocardial infarction (I21.4) Active confirmed Problem 521335402 Chronic hypoxic respiratory failure (J96.11) Active confirmed Vital Signs Heart Rate 96 /min 12/12/2024 Temperature 98.3 degrees Fahrenheit 07/25/2024 Respiratory Rate 20 /min 07/25/2024 Blood pressure diastolic 70 mm Hg 12/12/2024 Oximetry 90 % 12/12/2024 Height-cm 180.34 cm 12/12/2024 Weight-kg 148.33 kg 12/12/2024 Height 71 in 12/12/2024 Blood pressure systolic 112 mm Hg 12/12/2024 Weight 327 lbs 12/12/2024 BMI 45.6 kg/m2 12/12/2024 Procedures Procedure Date Ordered Date Performed Result Body Sit e Coronary Angio with Left Heart Cath 10/10/2024 N/A Encounters Encounter Location Date Provider Diagnosis [facility] [address] [place] [address] [place] [address] 06/18/2024 Arnol Stevenson [facility] [address] [place] [address], [place] [address] 10/10/2024 Florentino Pink [facility] [address] [place] [address], [place] [address] 10/10/2024 Florentino Pink [facility] [address] [place] [address], [place] [address] 10/18/2024 Florentino Pink [facility] [address] [place] [address], [place] [address] 10/18/2024 Florentino Pink [facility] [address] [place] [address] [place] [address] 07/25/2024 Arnol Stevenson Abnormal chest CT R93.89 ; Former smoker Z87.891 ; Chronic hypoxic respiratory failure J96.11 ; Chronic hypercapnic respiratory failure J96.12 and Mild persistent asthma, well controlled J45.30 [facility] [address] [place] [address] 10/10/2024 Florentino Pink Positive cardiac stress test R94.39 ; Stress-induced cardiomyopathy I51.81 ; Essential (primary) hypertension I10 ; Type 2 diabetes mellitus with hyperglycemia, without long-term current use of insulin E11.65 ; Non Q wave myocardial infarction I21.4 and Exertional dyspnea R06.[address] [place] [address] 12/12/2024 Florentino Pink Status post non-Q wa ve myocardial infarction I25.[address] [place] [address] 11/08/2024 Florentino Pink Assessments Encounter Date Diagnosis (ICD Code) Assessment Notes Treatment Notes Treatment Clinical Notes Section Notes 07/25/[address] (ICD-10 - R93.89) Nodules calcified. No further workup required. 07/25/2024 Former smoker (ICD-10 - Z87.891) -Patient smoked a mubi-rvz-eyl for 8 years. He has been abstinent for 30 years. 10/10/2024 Positive cardiac stress test (ICD-10 - R94.39) Impression: #1 non-Q wave MN: He recently presented to an outside hospital in [place] with a COPD exacerbation and pneumonia. From what he describes he had an abnormal troponin consistent with non-Q wave MN. The thought was it may have been demand ischemia. However from what he reports, his echo was abnormal as well. He implies he may have had a cardiomyopathy with decreased ejection fraction. At this point a Cardiolite stress test was performed. I do not have the results but the family was told the stress test was abnormal and I believe cardiac catheterization was recommended at that point. His main limitation is that of his COPD. He is on 2 L of oxygen continuously. He has to increase it whenever he does any kind of activity. Does admit to increased fatigue. Not really having much in the way of chest pain. However he is a long-term diabetic. Could very well have neuropathy. His dyspnea could also be an anginal variant. We had a long discussion regarding his issues. I am concerned about a recent positive stress test and possible cardiomyopathy which could suggest he has coronary disease and given the fact he has diabetes could very well have multivessel disease. EKG demonstrates sinus rhythm with a right axis deviation and right bundle branch block. Small Q waves inferiorly as well. Plan: Would proceed with left heart cardiac catheterization because of abnormal Cardiolite stress test and possible cardiomyopathy seen on recent echo Risk and benefits were discussed with patient regarding cardiac catheterization 10/10/2024 Stress-induced cardiomyopathy (ICD-10 - I51.81) Impression: #1 non-Q wave MN: He recently presented to an outside hospital in [place] with a COPD exacerbation and pneumonia. From what he describes he had an abnormal troponin consistent with non-Q wave MN. The thought was it may have been demand ischemia. However from what he reports, his echo was abnormal as well. He implies he may have had a cardiomyopathy with decreased ejection fraction. At this point a Cardiolite stress test was performed. I do not have the results but the family was told the stress test was abnormal and I believe cardiac catheterization was recommended at that point. His main limitation is that of his COPD. He is on 2 L of oxygen continuously. He has to increase it whenever he does any kind of activity. Does admit to increased fatigue. Not really having much in the way of chest pain. However he is a long-term diabetic. Could very well have neuropathy. His dyspnea could also be an anginal variant. We had a long discussion regarding his issues. I am concerned about a recent positive stress test and possible cardiomyopathy which could suggest he has coronary disease and given the fact he has diabetes could very well have multivessel disease. EKG demonstrates sinus rhythm with a right axis deviation and right bundle branch block. Small Q waves inferiorly as well. Plan: Would proceed with left heart cardiac catheterization because of abnormal Cardiolite stress test and possible cardiomyopathy seen on recent echo Risk and benefits were discussed with patient regarding cardiac catheterization 12/12/2024 Status post non-Q wave myocardial infarction (ICD-10 - I25.2) Impression: #1 non-Q wave MN: Recently hospitalized with pneumonia and COPD exacerbation. Apparently had a non-Q wave MN likely secondary to demand ischemia. His troponins were elevated. His echo initially implied he may had a cardiomyopathy. He had an abnormal Cardiolite stress test as well. I recent performed cardiac catheterization. This confirmed normal coronary arteries with no evidence of any obstruction. In addition ejection fraction is normal at 60%. I suspect the stress test was a false positive. Again his non-Q MN was likely secondary to demand ischemia from his pneumonia and COPD. Plan: I reassured this point he has no active cardiac issues as he has normal coronary arteries and normal LV function. I will see him back as an as-needed basis. 10/10/2024 Essential (primary) hypertension (ICD-10 - I10) Impression: #1 non-Q wave MN: He recently presented to an outside hospital in [place] with a COPD exacerbation and pneumonia. From what he describes he had an abnormal troponin consistent with non-Q wave MN. The thought was it may have been demand ischemia. However from what he reports, his echo was abnormal as well. He implies he may have had a cardiomyopathy with decreased ejection fraction. At this point a Cardiolite stress test was performed. I do not have the results but the family was told the stress test was abnormal and I believe cardiac catheterization was recommended at that point. His main limitation is that of his COPD. He is on 2 L of oxygen continuously. He has to increase it whenever he does any kind of activity. Does admit to increased fatigue. Not really having much in the way of chest pain. However he is a long-term diabetic. Could very well have neuropathy. His dyspnea could also be an anginal variant. We had a long discussion regarding his issues. I am concerned about a recent positive stress test and possible cardiomyopathy which could suggest he has coronary disease and given the fact he has diabetes could very well have multivessel disease. EKG demonstrates sinus rhythm with a right axis deviation and right bundle branch block. Small Q waves inferiorly as well. Plan: Would proceed with left heart cardiac catheterization because of abnormal Cardiolite stress test and possible cardiomyopathy seen on recent echo Risk and benefits were discussed with patient regarding cardiac catheterization 07/25/2024 Chronic hypoxic respiratory failure (ICD-10 - J96.11) Continue nasal cannula to maintain a saturation above 88%. 07/25/2024 Chronic hypercapnic respiratory failure (ICD-10 - J96.12) Patient currently on BiPAP. This is managed by his primary care. 10/10/2024 Type 2 diabetes mellitus with hyperglycemia, without long-term current use of insulin (ICD-10 - E11.65) Impression: #1 non-Q wave MN: He recently presented to an outside hospital in [place] with a COPD exacerbation and pneumonia. From what he describes he had an abnormal troponin consistent with non-Q wave MN. The thought was it may have been demand ischemia. However from what he reports, his echo was abnormal as well. He implies he may have had a cardiomyopathy with decreased ejection fraction. At this point a Cardiolite stress test was performed. I do not have the results but the family was told the stress test was abnormal and I believe cardiac catheterization was recommended at that point. His main limitation is that of his COPD. He is on 2 L of oxygen continuously. He has to increase it whenever he does any kind of activity. Does admit to increased fatigue. Not really having much in the way of chest pain. However he is a long-term diabetic. Could very well have neuropathy. His dyspnea could also be an anginal variant. We had a long discussion regarding his issues. I am concerned about a recent positive stress test and possible cardiomyopathy which could suggest he has coronary disease and given the fact he has diabetes could very well have multivessel disease. EKG demonstrates sinus rhythm with a right axis deviation and right bundle branch block. Small Q waves inferiorly as well. Plan: Would proceed with left heart cardiac catheterization because of abnormal Cardiolite stress test and possible cardiomyopathy seen on recent echo Risk and benefits were discussed with patient regarding cardiac catheterization 07/25/2024 Mild persistent asthma, well controlled (ICD-10 - J45.30) Continue Advair, Spiriva, and Albuterol as needed. Patient is well controlled on this regimen. 10/10/2024 Non Q wave myocardial infarction (ICD-10 - I21.4) Impression: #1 non-Q wave MN: He recently presented to an outside hospital in [place] with a COPD exacerbation and pneumonia. From what he describes he had an abnormal troponin consistent with non-Q wave MN. The thought was it may have been demand ischemia. However from what he reports, his echo was abnormal as well. He implies he may have had a cardiomyopathy with decreased ejection fraction. At this point a Cardiolite stress test was performed. I do not have the results but the family was told the stress test was abnormal and I believe cardiac catheterization was recommended at that point. His main limitation is that of his COPD. He is on 2 L of oxygen continuously. He has to increase it whenever he does any kind of activity. Does admit to increased fatigue. Not really having much in the way of chest pain. However he is a long-term diabetic. Could very well have neuropathy. His dyspnea could also be an anginal variant. We had a long discussion regarding his issues. I am concerned about a recent positive stress test and possible cardiomyopathy which could suggest he has coronary disease and given the fact he has diabetes could very well have multivessel disease. EKG demonstrates sinus rhythm with a right axis deviation and right bundle branch block. Small Q waves inferiorly as well. Plan: Would proceed with left heart cardiac catheterization because of abnormal Cardiolite stress test and possible cardiomyopathy seen on recent echo Risk and benefits were discussed with patient regarding cardiac catheterization 10/10/2024 Exertional dyspnea (ICD-10 - R06.09) Impression: #1 non-Q wave MN: He recently presented to an outside hospital in [place] with a COPD exacerbation and pneumonia. From what he describes he had an abnormal troponin consistent with non-Q wave MN. The thought was it may have been demand ischemia. However from what he reports, his echo was abnormal as well. He implies he may have had a cardiomyopathy with decreased ejection fraction. At this point a Cardiolite stress test was performed. I do not have the results but the family was told the stress test was abnormal and I believe cardiac catheterization was recommended at that point. His main limitation is that of his COPD. He is on 2 L of oxygen continuously. He has to increase it whenever he does any kind of activity. Does admit to increased fatigue. Not really having much in the way of chest pain. However he is a long-term diabetic. Could very well have neuropathy. His dyspnea could also be an anginal variant. We had a long discussion regarding his issues. I am concerned about a recent positive stress test and possible cardiomyopathy which could suggest he has coronary disease and given the fact he has diabetes could very well have multivessel disease. EKG demonstrates sinus rhythm with a right axis deviation and right bundle branch block. Small Q waves inferiorly as well. Plan: Would proceed with left heart cardiac catheterization because of abnormal Cardiolite stress test and possible cardiomyopathy seen on recent echo Risk and benefits were discussed with patient regarding cardiac catheterization 07/25/2024 Other I, Mary Dimas, am scribing for, and in the presence of Dr. Arnol Stevenson. I, Dr. Arnol Stevenson, personally performed the services described in this documentation , as scribed by Mary Dimas in my presence, and it is both accurate and complete. Plan Of Treatment Pending Test Test Name Order Date Prothrombin Time 97905 10/10/2024 Prothrombin Time 37652 11/08/2024 Basic Metabolic Panel (BMP) 67030 2024 Basic Metabolic Panel (BMP) 99106 2024 Lipid Panel Reflex DLDL 74178, 61868 Lipid Panel Reflex DLDL 16863, 17103 Partial Thromboplastin Time 10662 2024 Partial Thromboplastin Time 52787 2024 CBC Reflex Man Diff 99106, 31852 025 CBC Reflex [place] Diff 30043, 70823 025 Electrocardiogram 12 Lead Tracing-98138 10/10/2024 WBC Auto Diff--57333 11/08/2024 zzzHeart Cath Lt poss PTCA 11/08/2024 zzzHeart Cath Lt poss PTCA 11/08/2024 Electrocardiogram (EKG) - 84587 10/10/19 25 Coronary Angio with Left Heart Cath 09/26 Schedule Confirmation 11/08/2024 Insurance Providers Payer Name Payer Address Payer Phone Subscriber Number Group Number Insured Name Patient Relationship to Insured Coverage Start Date Coverage End Date [employer] Medicare Replacement [address] [address] [place] [address] [id number] HUSTON Self - patient is the insured Medical (General) History Medical History History ICD Code Measles, Mumps, chicken pox pneumonia arthritis Bladder Infections Migraine Headache Diabetess Hernia Back Trouble HTN Hemorrhoids Asthma Infectious [place] Bronchitis Covid pos history Covid vaccine - no Surgical History Surgery Date(Month/Year) [facility] by Dr. Pink 11.08.2024 Appendectomy-WP 2012 Hernia-WP 1971 Hospitalization History Reason Date(Month/Year) [facility]: IMPRESSION: 1. Normal c oronary arteries 2. normal LV function ejection fraction 60% 3. suspect false positive Cardiolite stress test RECOMMENDATIONS/PLAN: 1. Aggressive medical management and risk factor modification. 11.08.2024 Pneumonia X2
--- OUTSIDE RECORDS SUMMARY | 2025-03-25 12:22 | XMS_ITS ---
Laboratory report Created on: March 23, 2025 YAO BOGGS : 1965 Sex: Male Author Name CODY LEWIS INMAN Unknown PROBLEMS Problems List Code Description E11.9 RESULTS Laboratory Orders Date Order Code Test 2025-03-20 466702 LIPID PANEL W/ C HOL/HDL RATIO 2025-03-20 362270 HEMOGLOBIN A1C 2025-03-20 511575 CBC WITH DIFFERE NTIAL/PLATELET 2025-03-20 058366 COMP. METABOLIC PANEL (14) Laboratory Results Date LOINC Test Value Unit Reference Range Interpre tation 2025-03-20 2093-3 CHOLESTEROL, TOTAL 107 MG/DL 203-443 9911-06-25 2571-8 TRIGLYCERIDES 87 MG/DL 0-149 2025-03-20 2085-9 HDL CHOLESTEROL 34 MG/DL >39 L 2025-03-20 77192-0 VLDL CHOLESTEROL RADHA 17 MG/DL 5-40 2025-03-20 44869-2 LDL CHOL CALC ([facility]) 56 MG/DL 0-99 2025-03-20 9830-1 T CHOL/HDL RATIO 3.1 RATIO 0.0-5.0 2025-03-20 4548-4 HEMOGLOBIN A1C 5.9 % 4.8-5.6 H 2025-03-20 6690-2 WBC 9.5 X10E3/UL 3.4-10.8 2025-03-20 789-8 RBC 4.67 X10E6/UL 4.14-5.80 2025-03-20 718-7 HEMOGLOBIN 12.8 G/DL 13.0-17.7 L 2025-03-20 4544-3 HEMATOCRIT 43.1 % 37.5-51.0 2025-03-20 787-2 MCV 92 FL 79-97 2025-03-20 785-6 MCH 27.4 PG 26.6-33.0 2025-03-20 786-4 MCHC 29.7 G/DL 31.5-35.7 L 2025-03-20 788-0 RDW 12.4 % 11.6-15.4 2025-03-20 777-3 PLATELETS 295 X10E3/UL 660-922 0073-06-25 770-8 NEUTROPHILS 67 % 2025-03-20 736-9 LYMPHS 21 % 2025-03-20 5905-5 MONOCYTES 9 % 2025-03-20 713-8 EOS 2 % 2025-03-20 706-2 BASOS 1 % 2025-03-20 751-8 NEUTROPHILS (ABSOLUTE) 6.4 X10E3/UL 1.4-7.0 2025-03-20 731-0 LYMPHS (ABSOLUTE) 2 X10E3/UL 0.7-3.1 2025-03-20 742-7 MONOCYTES(ABSOLUTE) .8 X10E3/UL 0.1-0.9 2025-03-20 711-2 EOS (ABSOLUTE) .2 X10E3/UL 0.0-0.4 2025-03-20 704-7 BASO (ABSOLUTE) .1 X10E3/UL 0.0-0.2 2025-03-20 96428-8 IMMATURE GRANULOCYTES 0 % 2025-03-20 05057-7 IMMATURE GRANS (ABS) 0 X10E3/UL 0.0-0.1 2025-03-20 2345-7 GLUCOSE 120 MG/DL 70-99 H 2025-03-20 3094-0 BUN 24 MG/DL 8-2025-03-20 2160-0 CREATININE 1.17 MG/DL 0.76-1.27 2025-03-20 95651-3 EGFR 71 ML/MIN/1.73 >59 2025-03-20 3097-3 BUN/CREATININE RATIO 21 -2025-03-20 2951-2 SODIUM 140 MMOL/L 843-347 5202-06-25 2823-3 POTASSIUM 4.7 MMOL/L 3.5-5.2 2025-03-20 2075-0 CHLORIDE 91 MMOL/L 96-106 L 2025-03-20 2028-9 CARBON DIOXIDE, TOTAL 28 MMOL/L 2025-03-20 20174-8 CALCIUM 9.1 MG/DL 8.6-10.2 2025-03-20 2885-2 PROTEIN, TOTAL 7 G/DL 6.0-8.5 2025-03-20 1751-7 ALBUMIN 4.1 G/DL 3.8-4.9 2025-03-20 82273-0 GLOBULIN, TOTAL 2.9 G/DL 1.5-4.5 2025-03-20 1975-2 BILIRUBIN, TOTAL <0.2 MG/DL 0.0-1.2 2025-03-20 6768-6 ALKALINE PHOSPHATASE 58 IU/L 44-121 2025-03-20 1920-8 AST (SGOT) 34 IU/L 0-40 2025-03-20 1742-6 ALT (SGPT) 36 IU/L 0-44
--- OUTSIDE RECORDS SUMMARY | 2025-03-25 12:22 | XMS_ITS | Data Portability ---
Author Organization [facility] Alfonso Lopez [facility] Address [address] [place] [address] Care Team Providers Care Stucco Worker Name Role Phone KUNAL SAM Primary Care Provider Assessment No assessment recorded. Plan of Treatment Reminders Order Date Submit Date Provider Last Modified By Organization Details Last Modified Time Details Appointments None recorded. Lab None recorded. Referral ENT surgery referral 2022 023 [email or web address] Cb Orozco MD, [address], [place], [address], 4 15:53:27 Procedures None recorded. Surgeries None recorded. Imaging None recorded. Medication Orders amoxicillin 875 mg-potassiu m clavulanate 125 mg tablet 2024 025 DARRELL [facility], [address], [place], [address], 5 15:25:38 amoxicillin 875 mg-potassiu m clavulanate 125 mg tablet 2022 023 [email or web address] [facility], [address], [place], [address], 5 15:04:13 ceftriaxone 1 gram solution for injection 2022 023 [email or web address] Not available 5 15:04:16 Patient TargetsNo targets recorded. Patient InstructionsNo instructions recorded. Reason for Referral ENT Surgery Referral for Marion lulitis of face Referring Physician: Radha Veras, Family Medicine, Encounter Date: 09/20/2023 Problems Name Problem SNOMED Code Status Onset Date Resolution Date Notes Provider Name and Address Organization Details Recorded Time Appendec edmond Completed 201308/30/2017 Appendec edmond - Status is Inactive ; Date: 2013; 08/30/20 17 2:02PM by Alexandria Burgess CMT, José Miguelati on/Adden dum; Promoted ; acuity set as *; Not Available [facility] 3 03:14:48 Asthma 601942520 Completed 201608/30/2017 asthma - Status is Inactive ; 08/30/20 17 2:02PM by Alexandria Burgess CMT, Annotati on/Adden dum; Promoted ; acuity set as *; Not Available [facility] 3 03:14:50 Problem Notes None recorded. Procedures Surgical History Date Name Laterality Status Provider Name and Address Organization Details Recorded Time Appendectomy completed [facility] 03/17/2025 15:08:59 Hernia Repair completed [facility] 03/17/2025 15:09:04 Imaging Results None recorded. Procedure Notes None recorded. Medical Equipment None Reported. Allergies Allergen ID Allergen Name Allergen Category Reaction Reaction Severity Criticality Documentation Date Start Date Code Code System Note Provider Name and Address Organization Details Recorded Time 96295 cow milk allergeni c extract food,medi cation other Not available Not available 04/23/2023 96675 5 RxNorm React ion: Diffi culty breat rolando; anthony late, dust, pet dande r; Comme nt: Recor ded 04/23 1:56P M by Ana ramachandran LPN, Offic e Visit ; Promo nancy; Signi flaco ce: *; ; [place] [facility]ocor[facility] 15:06:50 Medications Name Sig Start Date Stop Date Status Note LastModified by Organization Details LastModified Time ibuprofen 800 mg tablet twice daily as needed 03/17 completed 0; Recorded 04/23/20 18 2:09PM by Jenifer Méndez LPN, Office Visit; Not Available Not Available Not Available ceftriaxo ne 1 gram solution for injection Take 1 g every day by injectio n route for 1 day. 03/17 completed Not Available Not Available Not Available amoxicill in 875 mg-potass ium clavulana te 125 mg tablet Take 1 tablet every 12 hours by oral route for 7 days. 2024 active Not Available Not Available Not Avai lable Ventolin 90 mcg/actua tion aerosol inhaler every four hours, as needed 2015 active ani/rb; 8; Recorded 08/30/20 16 3:17PM by Mayra Manzanares LPN (Authori bogdan through Polo Rodney MD), Refill Request; Refill Quantity : 3; Inhaler; Not Available Not Available Not Available atorvasta tin active Not Available Not Available Not Available IBU active Not Available Not Availa ble Not Available hydrochlo rothiazid e active Not Available Not Available Not Available lisinopri l active Not Available Not Available Not Available metformin active Not Available Not Lucy ilable Not Available glimepiri de active Not Available Not Available Not Available gabapenti n active Not Available Not Available Not Available Advair Diskus two times daily 2015 active ani/rb; 8; Recorded 08/30/20 16 3:18PM by Mayra Manzanares LPN (Authori bogdan through Polo Rodney MD), Refill Request; Refill Quantity : 3; Disk; Not Available Not Available Not Available Vitals Date Recorded Body height Body mass index (BMI) Body weight Oxygen saturation Oxygen saturation in Arterial blood by Pulse oximetry Inhaled oxygen flow rate Heart rate Respiratory rate Body temperature Systolic blood pressure Diastolic blood pressure Provider Name and Address Organization Details Last Updated DateTime 5 180.34 cm 44.1 kg/m2 708015. 19 g 86 % 86 % 3 L/min 107 /min 16 /min 98 [degF] 138 mm[Hg] 80 mm[Hg] Ileana Bui [facility] 5 15:11:21 Date Recorded Body height Body mass index (BMI) Body weight Oxygen saturation Oxygen saturation in Arterial blood by Pulse oximetry Inhaled oxygen flow rate Heart rate Body temperature Systolic blood pressure Diastolic blood pressure Provider Name and Address Organization Details Last Updated DateTime 3 180.34 cm 48.3 kg/m2 265906. 96 g 90 % 90 % 5 L/min 108 /min 96.4 [degF] 128 mm[Hg] 78 mm[Hg] Nemo Ortiz [facility] 3 10:03:40 Social History Question Answer Notes LastModified by Organizat ion Details LastModified Time Tobacco Smoking Status Current Every Day Smoker Ileana Bui terrance [facility] 03/17/2025 15:08:43 What Was The Date Of Your Most Recent Tobacco Screening? 03/17/2025 [email or web address] Information not available 03/17/2025 Sex: Unknown Functional Status None recorded. Mental Status None recorded. Family History Nothing Reported. Medical History No medical history recorded. Immunizations Vaccine Type Date Status Note Provider Nam e and Address Organization Details Recorded Time tetanus toxoid, unspecified formulation 8 completed Not Available [facility] 04/23/[facility]23 02:39:35 Past Encounters Encounter ID Performer Location Encounter Start Date Encounter Closed Date Diagnosis/Indication Diagnosis SNOMED-CT Code Diagnosis ICD10 Code Diagnosis Note [id number] RADHA VERAS PA-C [facility] ([facility]) [address] [place] [phone] 5 09/20/2023 09:40:28 09/20/2023 10:55:05 Cellulitis of face 726813134 L03.211 appears to have a connection from sinus to lacrimal duct. referal to Dr. Orozco office [id number] WANDER ALEJANDRO [facility] ([facility]) [address] [place] [phone] 03/17/2025 15:01:24 03/18/2025 12:01:33 Oral infection 091899896 K12.2 Complete antibiotic s. May use otc tylenol or ibuprofen as needed for pain. May apply oragel to lower gums. Use mouthwash twice a day. Follow up with PCP. RTC with any new or worsening symptoms. Health Concerns Section Related Observation LastModified by Organization Detai ls LastModified Time None Recorded Concern Status LastModified by Organization Details LastModified Time None Recorded Advance Directives Directive None Recorded Payers Insurance Date Sequence Insurance Name Policy Number Policy Sanchez Covered Member ID Sanchez Member ID Guarantor Name 09/20/2023 1 *SELF PAY* Socrates Gomez Adam 03/17/2025 1 [employer] (MEDICARE REPLACEMENT/A DVANTAGE - PPO) Walter Medina [id number] Walter Medina Notes Date Note Type Note Provider Name and Address Organization Details Recorded Time 09/20/2023 text/html Sinusitis/Allerg yRep orted bypatient.Location:m axillary; frontal Quality:similar to previous headaches;dull;conge sted;throbbing Severity:moderate;li mits daily activities;worsening Duration:frequent Onset/Timing:new onset; initially started 3days ago; progressively worse over last 3days Context:no recent sick contacts Alleviating factors:OTC meds acetominophen Aggravating factors:certain sleeping positions; excess fatigue Associated Symptoms:facial pain bilaterally;sinus pain cheek RADHA VERAS PA-C [address] [place], [address], [facility] 09/20/2023 10:21:18 03/17/2025 text/html walk in patientpatient is here today for lower mouth pain, patient said that he had all his teeth pulled about 6 months ago. Last week lower gums became painful and has been in pain ever since. Patient took IBU just prior to exam. Has not been able to wear dentures or bipap due to the pain. Denies fever. WANDER ALEJANDRO [address] [place], [address], [facility] 03/17/2025 15:27:51
--- NOTE | 2025-03-25 12:23 | ECG_ITS ---
[employer] Test Date: 2025-03-25 Pat Name: Walter Medina Department: Room: Gender: Male I&C Tech: : 1965 Requested By: Lili Garcia Order Number: [id number] Melody MD: Kai Duff M.D. Measurements Intervals [place] Rate: 109 P: 37 NV: 134 QRS: 113 QRSD: 148 T: -49 QT: 352 QTc: 475 Interpretive Statements SINUS TACHYCARDIA RIGHT BUNDLE BRANCH BLOCK [120+ ms QRS DURATION, UPRIGHT V1, 40+ ms S IN I/aVL/V4/V5/V6] LEFT POSTERIOR FASCICULAR BLOCK [QRS AXIS > 109, INFERIOR Q] ST DEVIATION AND MODERATE T-WAVE ABNORMALITY, CONSIDER LATERAL ISCHEMIA [-0.1+ mV T-WAVE IN I/aVL/V5/V6] ST DEVIATION AND MODERATE T-WAVE ABNORMALITY, CONSIDER INFERIOR ISCHEMIA [-0.1+ mV T-WAVE IN II/aVF] Compared to ECG 09/07/2024 18:19:18 Left posterior fascicular block now present Possible ischemia still present Electronically Signed On 03-28-2025 09:08:27 CDT by Kai Duff M.D. [email or web address]
--- NOTE | 2025-03-25 12:25 | XRR_ITS ---
PROCEDURE INFORMATION: Exam: XR Chest Exam date and time: 03/25/2025 12:45 PM Age: 59 years old Clinical indication: Shortness of breath; Additional info: SOB TECHNIQUE: Imaging protocol: Radiologic exam of the chest. Views: 1 view. COMPARISON: CR XR chest 2V* [id number] 03/20/2025 10:13 AM FINDINGS: Lungs: Unchanged small amounts of scarring, atelectasis, and/or pneumonitis in both lung bases. No other significant pulmonary abnormalities. Pleural spaces: Unremarkable. No pleural effusion. No pneumothorax. Heart/Mediastinum: Unchanged shift to the right. No cardiomegaly. Diaphragm: Unchanged moderate elevation of the left hemidiaphragm. Bones/joints: Unremarkable. XR/XR chest 1V portable [id number] IMPRESSION: 1. Unchanged moderate elevation of the left hemidiaphragm. 2. Unchanged small amounts of scarring, atelectasis, and/or pneumonitis in both lung bases.
--- NOTE | 2025-03-25 12:41 | W.ED.SOB ---
HPI - SOB/Dyspnea General: Chief Complaint: Shortness of Breath/Dyspnea Stated Complaint: sob, on 3lpm Time Seen by Provider: 03/25/25 12:39 History of Present Illness: HPI Narrative: 59-year-old male presents emergency room with complaint of shortness of breath with activity a cough. Patient has a history of COPD. Patient is chronically on 3 L by nasal cannula has felt more short of breath has a continuous baseline cough which has not significantly changed. On 625 is seen by primary care there is a question of some early infiltrates and was started on some oral antibiotics. He denies any fever sweats chills no abdominal pain no dysuria urgency or frequency no vomiting or diarrhea no chest pain Associated symptoms: Reports chest congestion; Deny abdominal pain, chest pain or fever(s) Related Data Home Medications ?Medication ?Instructions ?Recorded ?Confirmed albuterol sulfate 2.5 mg/3 mL 2.5 mg inhalation Q4H PRN Cough 06/06/24 03/25/25 (0.083 %) solution for nebulization and wheezing albuterol sulfate 90 mcg/actuation 1 puff inhalation Q6H PRN 06/06/24 03/25/25 aerosol inhaler Shortness Of Breath atorvastatin 20 mg tablet 20 mg PO BEDTIME 06/06/24 03/25/25 dulaglutide 1.5 mg/0.5 mL 1.5 mg SUBCUT Q7D 06/06/24 03/25/25 [facility] fluticasone 250 mcg-salmeterol 50 1 inh inhalation BID 06/06/24 03/25/25 mcg/dose blistr powdr for inhalation fluticasone propionate 50 2 spray intranasal DAILY 06/06/24 03/25/25 mcg/actuation nasal spray,suspension gabapentin 300 mg capsule 300 mg PO TID 06/06/24 03/25/25 glyburide 5 mg tablet 50 mg PO DAILY 06/06/24 03/25/25 lisinopril 10 mg tablet 10 mg PO DAILY 06/06/24 03/25/25 Held on 09/12/24. Instructions: Resume on 09/26/24. sildenafil 100 mg tablet See Rx Instructions .Route .COMPLEX 06/06/24 03/25/25 tiotropium bromide 1.25 2 inh inhalation DAILY 09/11/24 06/30/25 mcg/actuation mist for inhalation (Spiriva Respimat) aspirin 81 mg tablet,delayed 81 mg PO QAM 03/25/25 03/25/25 release hydrochlorothiazide 25 mg tablet 25 mg PO DAILY 03/25/25 03/25/25 metformin 1,000 mg tablet 1,000 mg PO BID 03/25/25 03/25/25 Allergies Allergy/AdvReac Type Severity Reaction Status Date / Time No Known Allergies Allergy Verified 03/25/25 12:28 Review of Systems Const: Denies: fever(s) or chills Card: Denies: chest pain Resp: Reports: dyspnea, productive cough (Baseline), wheezing and chest congestion GI: Denies: abdominal pain : Denies: dysuria, urinary frequency or urinary urgency Musc: Denies: neck pain or back pain Skin/Breast: Denies: rash PFSH ED PFSH: Medical History On home oxygen therapy Sleep apnea Morbidly obese HTN (hypertension) Type 2 diabetes mellitus History of type 2 diabetes mellitus History of morbid obesity History of COPD Surgical History History of appendectomy Family History Mother Diabetes Social History Smoking and tobacco/nicotine status: former use of tobacco/nicotine Alcohol intake: never Substance/Drug Use: never Physical Exam Const: COMMON NORMALS: no acute distress GENERAL APPEARANCE: cooperative and comfortable ORIENTATION/CONSCIOUSNESS: Yes awake, Yes oriented to person, Yes oriented to place and Yes oriented to time HENMT: COMMON NORMALS: normocephalic, atraumatic and hearing grossly normal bilaterally HEAD & SCALP: normocephalic and atraumatic Resp: COMMON NORMALS: normal respiratory effort, No retractions, No use of accessory muscles and clear to auscultation bilaterally AUSCULTATION: clear to auscultation bilaterally Cardio: COMMON NORMALS: regular rate, regular rhythm and No murmurs present (Cardio) RATE: regular rate RHYTHM: regular rhythm GI: COMMON NORMALS: Soft to palpation and No hepatosplenomegaly present AUSCULTATION: Yes normoactive bowel sounds PALPATION: Yes Soft to palpation, No Tenderness to palpation present (GI), No Guarding due to palpation present (GI) and Yes No hepatosplenomegaly present Extremity: COMMON NORMALS: normal to inspection, capillary refill normal, no clubbing, cyanosis or edema, no calf tenderness and no pedal edema Neuro: SENSORIUM/ORIENTATION: Yes oriented to person, Yes oriented to place and Yes oriented to time Skin: COMMON NORMALS: no rashes or lesions noted GENERAL SKIN EXAM: no rashes or lesions noted Course Vital Signs: Vital signs: Vital Signs Temperature 97.6 F 03/25/25 12:18 Pulse Rate 100 03/25/25 14:08 Respiratory Rate 18 03/25/25 14:04 Blood Pressure 121/80 03/25/25 14:08 Pulse Oximetry 97 03/25/25 14:08 Oxygen Delivery Me thod Nasal Cannula 03/25/25 14:08 Oxygen Flow Rate 3 03/25/25 14:08 MDM - SOB/Dyspnea Medical Decision Making PCO2 and PO2 both at 61 pH well-adjusted. He satting normally he is not having any respiratory difficulty no encephalopathy I do not believe he is acutely hypercapnic and think this represents his chronic hypercapnia and suspect he is chronically at these levels. He does have a slightly increased productive cough sediment ceftriaxone and Zithromax he did have improvement with nebulizers continue nebs and steroids. Patient is reporting significant shortness of breath difficulty with activities whenever he is up and ambulatory. But resolves as soon as he sits. Lab Data 03/25/25 13:17 03/25/25 12:42 Labs/Radiology: Radiology Impressions Chest X-Ray 03/25/25 12:25 IMPRESSION: 1. Unchanged moderate elevation of the left hemidiaphragm. 2. Unchanged small amounts of scarring, atelectasis, and/or pneumonitis in both lung bases. Laboratory Results WBC 12.20 10^3/uL (3.29-11.43) H 03/25/25 13:17 Corrected WBC Cancelled 03/25/25 12:42 RBC 4.41 10^6/uL (3.85-5.65) 03/25/25 13:17 Hgb 11.90 g/dL (11.27-16.99) 03/25/25 13:17 Hct 39.3 % (37-53) 03/25/25 13:17 MCV 89.1 fl (82-101) 03/25/25 13:17 MCH 27.0 pg (27-33) 03/25/25 13:17 MCHC 30.3 g/dL (30-55) 03/25/25 13:17 RDW 13.2 % (12.1-15.1) 03/25/25 13:17 Plt Count 290 10^3/cmm (157-399) 03/25/25 13:17 MPV 9.4 fL (7.4-10.4) 03/25/25 13:17 Gran % Cancelled 03/25/25 12:42 Neut % (Auto) 84.5 % 03/25/25 13:17 Lymph % (Auto) 9.8 % 03/25/25 13:17 [place] % (Auto) 4.8 % 03/25/25 13:17 Eos % (Auto) 0.0 % 03/25/25 13:17 Baso % (Auto) 0.2 % 03/25/25 13:17 Neut # (Auto) 10.31 10^3/uL (1.8-7.7) H 03/25/25 13:17 Lymph # (Auto) 1.2 10^3/uL (0.8-4.8) 03/25/25 13:17 [place] # (Auto) 0.6 10^3/uL (0.2-0.9) 03/25/25 13:17 Eos # (Auto) 0.0 10^3/uL (0.0-0.8) 03/25/25 13:17 Baso # (Auto) 0.0 10^3/uL (0.0-0.1) 03/25/25 13:17 Absolute Gran (auto) Cancelled 03/25/25 12:42 Nucleated RBC % (auto) 0 % 03/25/25 13:17 Nucleated RBCs # 0.0 /100WBC 03/25/25 13:17 Specimen Type Arterial 03/25/25 12:45 Sample Site Radial, right 03/25/25 12:45 ABG pH 7.36 (7.35-7.45) 03/25/25 12:45 ABG pCO2 61.0 mmHg (35-45) H* 03/25/25 12:45 ABG pO2 60.6 mmHg (80.0-100.0) L 03/25/25 12:45 ABG HCO3 34.7 mmol/L (22-26) H 03/25/25 12:45 ABG O2 Saturation 90.1 03/25/25 12:45 ABG Base Excess 7.4 mmol/L (-2.0-2.0) H 03/25/25 12:45 Dae Test Pos 03/25/25 12:45 A-a O2 Gradient 2.0 mmHg (5-10) L 03/25/25 12:45 Hematocrit 38.7 % (42-52) L 03/25/25 12:45 Hgb O2 Saturation 88.3 % (95-100) L 03/25/25 12:45 Carboxyhemoglobin 1.0 %THgb (0.4-20.1) 03/25/25 12:45 Methemoglobin 1.0 % (0.4-1.5) 03/25/25 12:45 Total Hemoglobin 12.6 g/dL (14-18) L 03/25/25 12:45 Sodium 138.0 mmol/L (131-143) 03/25/25 12:45 Potassium 4.3 mmol/L (3.5-5.0) 03/25/25 12:45 Glucose 273.0 mg/dL (70-115) H 03/25/25 12:45 Ionized Calcium 1.3 mmol/L (1.1-1.4) 03/25/25 12:45 O2 Delivery Device Nc 03/25/25 12:45 O2 Liters/Min 3.0 % 03/25/25 12:45 Product Scientist ID [place] 03/25/25 12:45 Sodium 138 mmol/L (136-145) 03/25/25 12:42 Potassium 4.8 mmol/L (3.5-5.1) 03/25/25 12:42 Chloride 95 mmol/L (98-107) L 03/25/25 12:42 Carbon Dioxide 30 mmol/L (22-29) H 03/25/25 12:42 Anion Gap 17.8 (5-19) 03/25/25 12:42 BUN 18 mg/dL (8-23) 03/25/25 12:42 Creatinine 0.6 mg/dL (0.7-1.2) L 03/25/25 12:42 GFR Calculation 137.4 mL/min (90-130) H 03/25/25 12:42 Glucose 265 mg/dL (65-115) H 03/25/25 12:42 Calculated Osmolality 297 mOsm/kg (285-295) H 03/25/25 12:42 Calcium 9.5 mg/dL (8.5-10.5) 03/25/25 12:42 Total Bilirubin 0.3 mg/dL (0.15-1.2) 03/25/25 12:42 AST 20 U/L (0-40) 03/25/25 12:42 ALT 36 U/L (0-41) 03/25/25 12:42 Alkaline Phosphatase 59 U/L (40-130) 03/25/25 12:42 NT-Pro-B Natriuret Pep 659 pg/mL (0-125) H 03/25/25 12:42 Total Protein 6.7 g/dL (6.6-8.7) 03/25/25 12:42 Albumin 3.8 g/dL (3.5-5.2) 03/25/25 12:42 Globulin 2.9 g/dL (1.3-4.6) 03/25/25 12:42 All radiology interpretation(s) finalized by discharge Discharge Plan Discharge Condition: Stable Prescriptions: No Action metformin 1,000 mg tablet 1,000 mg PO BID hydrochlorothiazide 25 mg tablet 25 mg PO DAILY aspirin 81 mg tablet,delayed release (DR/EC) 81 mg PO QAM fluticasone propion-salmeterol 250-50 mcg/dose blister with device 1 inh INHALATION BID atorvastatin 20 mg tablet 20 mg PO BEDTIME albuterol sulfate 2.5 mg /3 mL (0.083 %) solution for nebulization 2.5 mg inhalation Q4H PRN (Reason: Cough and wheezing) glyburide 5 mg tablet 50 mg PO DAILY sildenafil 100 mg tablet See Rx Instructions .ROUTE .COMPLEX Rx Instructions: TAKE 1 TAB BY MOUTH 30 MINUTES PRIOR TO INTERCOURSE NEEDED, NO NITRATES lisinopril 10 mg tablet 10 mg PO DAILY gabapentin 300 mg capsule 300 mg PO TID albuterol sulfate 90 mcg/actuation HFA aerosol inhaler 1 puff INHALATION Q6H PRN (Reason: Shortness Of Breath) fluticasone propionate 50 mcg/actuation spray,suspension 2 spray INTRANASAL DAILY Trulicity 1.5 mg/0.5 mL pen injector 1.5 mg SUBCUT Q7D Rx Instructions: on Tuesday Spiriva Respimat 1.25 mcg/actuation mist 2 inh INHALATION DAILY Referrals: Shaniqua Carey MD [Primary Care Provider, Internal Medicine] Print Language: Azeri Coding Level of Care Code ED Brassiere Cup Mold Cutter for Rose Robb
[2025-03-25 12:56] LABS: ABG PH Result 7.36 (7.35-7.45); Alveolar-Arterial Oxygen Gradi 2.0 mmHg (5-10); Arterial Blood Gas Hematocrit 38.7 % (42-52); Blood Gas Allen Test Pos; Blood Gas LPM 3.0 %; Blood Gas Operator Identificat WALCI; Blood Gas Sample Site Radial, right; Blood Gas Sample Type Arterial; Carboxyhemoglobin 1.0 %THgb (0.4-20.1); Glucose Level-ABG 273.0 mg/dL (70-115); HCO3 ABG 34.7 mmol/L (22-26); Ionized Calcium Level - ABG 1.3 mmol/L (1.1-1.4); Methemoglobin 1.0 % (0.4-1.5); Oxygen Saturation ABG 90.1; PO2 ABG 60.6 mmHg (80.0-100.0); Potassium Level - ABG 4.3 mmol/L (3.5-5.0); Sodium Level - ABG 138.0 mmol/L (131-143)
[2025-03-25 13:02] LABS: ABG PCO2 61.0 mmHg (35-45)
[2025-03-25 13:17] LABS: Alanine Aminotransferase 36 U/L (0-41); Albumin Level 3.8 g/dL (3.5-5.2); Alkaline Phosphatase 59 U/L (40-130); Aspartate Amino Transferase 20 U/L (0-40); Blood Urea Nitrogen 18 mg/dL (8-23); Calcium 9.5 mg/dL (8.5-10.5); Carbon Dioxide 30 mmol/L (22-29); Chloride 95 mmol/L (98-107); Creatinine Clr Calc Pharmacy 188.4970; Globulin 2.9 g/dL (1.3-4.6); Glucose 265 mg/dL (65-115); NT Pro B Type Natriuretic Pept 659 pg/mL (0-125); Osmolality Calculated 297 mOsm/kg (285-295); Sodium 138 mmol/L (136-145); Total Protein 6.7 g/dL (6.6-8.7)
[2025-03-25 13:18] LABS: Anion Gap 17.8 (5-19); Potassium 4.8 mmol/L (3.5-5.1)
[2025-03-25 13:24] LABS: Hematocrit 39.3 % (37-53); Hemoglobin 11.90 g/dL (11.27-16.99); Mean Corpuscular HGB Conc 30.3 g/dL (30-55); Mean Corpuscular Hemoglobin 27.0 pg (27-33); Mean Corpuscular Volume 89.1 fl (82-101); Nucleated Red Blood Cells % 0 %; Platelet Count 290 10^3/cmm (157-399); Red Blood Count 4.41 10^6/uL (3.85-5.65); White Blood Count 12.20 10^3/uL (3.29-11.43)
[2025-03-25] MEDS: methylPREDNISolone sod succ 125 mg/2 mL INJ IVP (14:18)
--- NOTE | 2025-03-25 14:54 | ECG_ITS ---
[employer] Test Date: 2025-03-25 Pat Name: Walter Medina Department: Room: Gender: Male [employer]: : 1965 Requested By: Rodrigo Fermin Order Number: [id number] Melody MD: Kai Duff M.D. Measurements Intervals [place] Rate: 94 P: 55 [place]: 135 QRS: 95 QRSD: 152 T: -27 QT: 374 QTc: 468 Interpretive Statements SINUS RHYTHM RIGHT BUNDLE BRANCH BLOCK [120+ ms QRS DURATION, UPRIGHT V1, 40+ ms S IN I/aVL/V4/V5/V6] POSSIBLE ANTERIOR MYOCARDIAL INFARCTION , OF INDETERMINATE AGE [30 ms Q WAVE IN V3/V4, OR R < 0.2 mV IN V4] MODERATE T-WAVE ABNORMALITY, CONSIDER LATERAL ISCHEMIA [-0.1+ mV T-WAVE IN I/aVL/V5/V6] Compared to ECG 03/25/2025 12:23:19 Myocardial infarct finding now present Sinus tachycardia no longer present T-wave abnormality still present Possible ischemia still present Electronically Signed On 03-28-2025 09:06:52 CDT by Kai Duff M.D. [id number] [id number]
[2025-03-25 15:26] LABS: Troponin(5th) Baseline 132 ng/L (0-15)
--- NOTE | 2025-03-25 15:50 | PM.HP ---
Providers/Chief Complaint Primary Care Provider: Shaniqua Carey MD Chief Complaint: sob, on 3lpm History of Present Illness Walter Medina is a 59 year old male With past medical history of COPD, congestive heart failure, ex-smoker, history of NSTEMI, pneumonia presented to the hospital today for complaint of shortness of breath. He states he has shortness of breath on exertion. Denies any chest pain at this time. BNP 659. Blood gas shows pH 7.36/61/60.6/ bicarb 34.1. He was given DuoNeb and steroids and is starting to feel slightly better however will be admitted for COPD exacerbation at this time secondary to symptoms and COPD flare. EKG did not show any acute ischemic changes. Denies nausea vomiting diarrhea, abdominal pain. Initial troponin 132, 2-hour, 6-hour troponin pending at this time. Chest x-ray shows moderate elevation of left hemidiaphragm and small amount of scarring atelectasis and/or pneumonitis in both lung bases. Leukocytosis 12,000. He says at rest uses 2 L nasal cannula and on exertion goes up to 9 L however that is pulsed air. 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 Says he does not have any blood clots in his lungs as he has been checked for them before. 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 He reports chronic asthma COPD. Denies chest pain. Medications/Allergies Home Medications ?Medication ?Instructions ?Recorded ?Confirmed ?Last Taken ?Type albuterol sulfate 2.5 mg/3 mL 2.5 mg inhalation Q4H PRN Cough 06/06/24 03/25/25 09/07/24 History (0.083 %) solution for nebulization and wheezing albuterol sulfate 90 mcg/actuation 1 puff inhalation Q6H PRN 06/06/24 03/25/25 Unknown History aerosol inhaler Shortness Of Breath atorvastatin 20 mg tablet 20 mg PO BEDTIME 06/06/24 03/25/25 03/24/25 History dulaglutide 1.5 mg/0.5 mL 1.5 mg SUBCUT Q7D 06/06/24 03/25/25 03/24/25 History subcutaneous pen injector (Trul[employer]) fluticasone 250 mcg-salmeterol 50 1 inh inhalation BID 06/06/24 03/25/25 03/25/25 History mcg/dose blistr powdr for inhalation fluticasone propionate 50 2 spray intranasal DAILY 06/06/24 03/25/25 03/25/25 History mcg/actuation nasal spray,suspension gabapentin 300 mg capsule 300 mg PO TID 06/06/24 03/25/25 03/25/25 History glyburide 5 mg tablet 50 mg PO DAILY 06/06/24 03/25/25 03/25/25 History lisinopril 10 mg tablet 10 mg PO DAILY 06/06/24 03/25/25 03/25/25 History Held on 09/12/24. Instructions: Resume on 09/26/24. sildenafil 100 mg tablet See Rx Instructions .Route .COMPLEX 06/06/24 03/25/25 Unknown History tiotropium bromide 1.25 2 inh inhalation DAILY 06/06/24 03/25/25 03/24/25 History mcg/actuation mist for inhalation (Spiriva Respimat) aspirin 81 mg tablet,delayed 81 mg PO QAM 03/25/25 03/25/25 03/25/25 History release hydrochlorothiazide 25 mg tablet 25 mg PO DAILY 03/25/25 03/25/25 03/25/25 History metformin 1,000 mg tablet 1,000 mg PO BID 03/25/25 03/25/25 03/25/25 History Allergies Allergy/AdvReac Type Severity Reaction Status Date / Time No Known Allergies Allergy Verified 03/25/25 12:28 PFSH Acute PFSH: Medical History On home oxygen therapy Sleep apnea Morbidly obese HTN (hypertension) Type 2 diabetes mellitus History of type 2 diabetes mellitus History of morbid obesity History of COPD Surgical History History of appendectomy Family History Mother Diabetes Social History Smoking and tobacco/nicotine status: former use of tobacco/nicotine Alcohol intake: never Substance/Drug Use: never Vitals/I&O/Wt Last Vital Signs Temp 97.6 F 03/25/25 12:18 Pulse 100 03/25/25 14:08 Resp 18 03/25/25 14:04 BP 121/80 03/25/25 14:08 Pulse Ox 97 03/25/25 14:08 O2 Del Method Nasal Cannula 03/25/25 14:08 O2 Flow Rate 3 03/25/25 14:08 Weight last 48 hrs Weight 141.521 kg Physical Exam Narrative: General: Alert oriented x3, patient seen laying in bed appearing comfortable HEENT: Normocephalic, atraumatic, EOMI, no conversational dyspnea. Cardio: Regular rate rhythm, normal S1-S2, Respiratory: Decreased bilateral air entry at bases, mild rhonchi present. Wheezing diffuse upper bilateral lung bales. GI: Abdomen soft, nontender, bowel sounds + Behavior: Appropriate and cooperative Extremities: No edema bilateral lower extremities Data 03/25/25 13:17 03/25/25 12:42 A&P Assessment and plan (1) Acute exacerbation of chronic obstructive airways disease: (2) HTN (hypertension): (3) Non-STEMI (non-ST elevated myocardial infarction): (4) Elevated troponin: (5) Dyslipidemia: (6) Type 2 diabetes mellitus: Plan #COPD exacerbation #NSTEMI #Shortness of breath on exertion secondary to above #Hypertension #Diabetes mellitus ? Continue ceftriaxone azithromycin ? Check D-dimer ? Initial troponin 132, await 2nd and 3rd troponin. If delta positive we will place on heparin drip ? I would like to rule out PE we will check CTA chest with contrast PE protocol ? BNP 659. Possibly falsely low secondary to morbid obesity. Patient is 141 kg. ? Chest x-ray does not show acute pneumonia ? Check echocardiogram to rule out wall motion abnormalities -Solu-Medrol 40 every 8 hours ? Check sputum Gram stain culture ? Check procalcitonin ? Check lactic acid ? Check TSH - DuoNeb every 6 hours scheduled - continue aspirin, plavix, atovastatin - Consult cardiology ? Patient was placed on heparin drip by ER. Delta troponin +15 at 2 hours. Will await 6-hour troponin ? Discussed with clinical resource nurse over the phone.. Cardiology consulted. ? Patient does have elevated troponin however I do not believe his issues are secondary to cardiac origin. ? I believe he has a COPD exacerbation and his shortness of breath is of pulmonary etiology. ? Check respiratory viral panel full code dvt prophylaxis on heparin ggt PDMP PDMP Reviewed: Not Reviewed Attestations Medical Necessity Statement*: COPD, NSTEMI Diagnoses Acute exacerbation of chronic obstructive airways disease J44.1 HTN (hypertension) I10 Non-STEMI (non-ST elevated myocardial infarction) I21.4 Elevated troponin R79.89 Dyslipidemia E78.5 Type 2 diabetes mellitus without complication, with long-term current use of insulin E11.9; Z79.4 Diabetes mellitus complication status: without complication Diabetes mellitus bed bug exterminator insulin use: with bed bug exterminator use
--- NOTE | 2025-03-25 16:26 | CTR_ITS ---
PROCEDURE INFORMATION: Exam: CTA Chest With Contrast Exam date and time: 03/25/2025 4:56 PM Age: 59 years old Clinical indication: Shortness of breath; Additional info: R/O pe TECHNIQUE: Imaging protocol: Computed tomographic angiography of the chest with contrast. Exam focused on the arteries. 3D rendering (Not supervised by radiologist): MIP and/or 3D reconstructed images were created by the technologist. Radiation optimization: All CT scans at this facility use at least one of these dose optimization techniques: automated exposure control; mA and/or kV adjustment per patient size (includes targeted exams where dose is matched to clinical indication); or iterative reconstruction. Contrast material: OMNIPAQUE 350; Contrast volume: 100 ml; Contrast route: INTRAVENOUS (IV); COMPARISON: [place] [id number] 09/07/2024 5:48 PM RADIATION DOSE METRICS: Total DLP (mGy-cm): 541.27 FINDINGS: Pulmonary arteries: Normal. No pulmonary emboli. Aorta: Unremarkable. No aortic aneurysm. No aortic dissection. Lungs: Numerous bilateral pulmonary nodules are again demonstrated, some of which are calcified. These appear to be similar in size, number, distribution and appearance to the prior examination measuring up to 7 mm. No new pulmonary nodules or masses. Pleural spaces: Unremarkable. No pneumothorax. No pleural effusion. Heart: Unremarkable. No cardiomegaly. No pericardial effusion. Lymph nodes: Multiple prominent mediastinal lymph nodes are again demonstrated measuring up to 11 mm, previously 13 mm, in the left hilum. Bones/joints: Unremarkable. No acute fracture. Soft tissues: Unremarkable. CT/CT angio chest PE protcl [id number] IMPRESSION: 1. No new pulmonary nodules or masses. 2. Numerous bilateral pulmonary nodules are again demonstrated, some of which are calcified. These appear to be similar in size, number, distribution and appearance to the prior examination dated 09/07/2024 measuring up to 7 mm. For patients at low risk (minimal or absent history of smoking and of other known risk factors), recommend CT Chest at 3-6 months, then consider CT Chest at 18-24 months. For patients at high risk (history of smoking or of other known risk factors), recommend CT Chest at 3-6 months, then CT Chest at 18-24 months. (Reference: [place]) References: MacMahon H, et al. Guidelines for Management of Incidental Pulmonary Nodules Detected on CT Images: From the Fleischner Society 2017. Radiology. 2017;284(1):228-243.
[2025-03-25 16:32] LABS: Thyroid Stimulating Hormone 1.02 uIU/mL (0.27-4.20)
--- NOTE | 2025-03-25 16:44 | USCV_ITS ---
Walter Medina Age: 59 Gender: M : 1965 Exam Date: 03/25/2025 20:00 Ordering Phys: Latasha Schaeffer MD Technologist: MARY KATE Exam Location: [facility] [place] Indication: r/o dvt HISTORY: r/o dvt PROCEDURES: The venous duplex Doppler examination of both lower extremities was performed in the standard fashion. The following venous structures were evaluated: common femoral vein, profunda vein, proximal portion of the greater saphenous vein, superficial femoral vein, and the popliteal vein. In addition, the posterior tibial and peroneal trunk were evaluated. FINDINGS: Normal 2-D Doppler and augmentation and compressibility throughout the lower extremity venous structures. Additional imaging through the proximal calf veins also reveals no thrombus. Limited evaluation of the greater saphenous vein is patent with no thrombus. CONCLUSIONS No DVT bilateral lower extremities. Dr. Nuha Wallis DO (Electronically Signed) Final Date: 26 March 2025 13:25 S
[2025-03-25 16:47] LABS: Troponin 5 2HR 146.5 ng/L (0-15)
[2025-03-25 16:48] LABS: Troponin 5 2HR Delta 14.5 ABS# (0-10)
[2025-03-25 16:50] LABS: Lactic Sepsis W/Reflex 2.4 mmol/L (0.5-2.2)
--- NOTE | 2025-03-25 16:54 | ECG_ITS ---
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 Measurements Intervals [place] Rate: 100 P: 42 [place]: 153 QRS: 102 QRSD: 152 T: -41 QT: 360 QTc: 465 Interpretive Statements SINUS TACHYCARDIA POSSIBLE LEFT ATRIAL ENLARGEMENT [-0.1mV P-WAVE IN V1/V2] RIGHT AXIS DEVIATION [QRS AXIS > 100] RIGHT BUNDLE BRANCH BLOCK [120+ ms QRS DURATION, UPRIGHT V1, 40+ ms S IN I/aVL/V4/V5/V6] MODERATE T-WAVE ABNORMALITY, CONSIDER LATERAL ISCHEMIA [-0.1+ mV T-WAVE IN I/aVL/V5/V6] Compared to ECG 03/25/2025 15:16:36 Right-axis deviation now present T-wave abnormality still present Possible ischemia still present Electronically Signed On 03-28-2025 09:35:05 CDT by Kai Duff M.D. [id number] [id number]
[2025-03-25] MEDS: iohexol 350 mg/mL 500 mL Btl (per mL) IV (16:59)
[2025-03-25 17:07] LABS: NT Pro B Type Natriuretic Pept 661 pg/mL (0-125); Procalcitonin 0.05 ng/mL (0-0.5)
[2025-03-25 17:17] LABS: Estmated Average Glucose 128; Hemoglobin A1C 6.1 % (4.0-6.0)
[2025-03-25] MEDS: heparin 5,000 unit/mL INJ 1 mL IVP (17:26)
[2025-03-25] MEDS: heparin drip 25,000 UNIT/500 ML PREMIX 116.05 UNIT IV (17:29)
[2025-03-25] MEDS: cefTRIAXone 1,000 mg SDV 1000 MG IVP (17:32)
[2025-03-25 18:14] LABS: Reflex Lactate Order REFLEX LACTIC ORDERD
[2025-03-25 19:21] LABS: Troponin 5 6HR Delta -11.5 ng/L (0-12)
[2025-03-25 19:22] LABS: Troponin 5 6HR 120.5 ng/L (0-15)
[2025-03-25 19:24] LABS: Lactic Acid level (Lactate) 4.7 mmol/L (0.5-2.2)
[2025-03-25 20:00] LABS: Coronavirus 229E,HKU1,NL63,OC4 Not Detected (NOT DETECT); Parainfluenza Virus Type 1 Not Detected (NOT DETECT); Parainfluenza Virus Type 2 Not Detected (NOT DETECT); Parainfluenza Virus Type 3 Not Detected (NOT DETECT); Parainfluenza Virus Type 4 Not Detected (NOT DETECT); SARS-COV-2 Not Detected (NOT DETECT)
--- NOTE | 2025-03-25 20:54 | ECG_ITS ---
[employer] Test Date: 2025-03-25 Pat Name: Walter Medina Department: Room: 256 Gender: Male [employer]: : 1965 Requested By: Rodrigo Fermin Order Number: [id number] Melody MD: Kai Duff M.D. Measurements Intervals [place] Rate: 114 P: 40 [place]: 129 QRS: 109 QRSD: 153 T: -45 QT: 361 QTc: 499 Interpretive Statements SINUS TACHYCARDIA POSSIBLE LEFT ATRIAL ENLARGEMENT [-0.1mV P-WAVE IN V1/V2] RIGHT AXIS DEVIATION [QRS AXIS > 100] RIGHT BUNDLE BRANCH BLOCK [120+ ms QRS DURATION, UPRIGHT V1, 40+ ms S IN I/aVL/V4/V5/V6] POSSIBLE ANTERIOR MYOCARDIAL INFARCTION , OF INDETERMINATE AGE [30 ms Q WAVE IN V3/V4, OR R < 0.2 mV IN V4] PROBABLE INFERIOR MYOCARDIAL INFARCTION , OF INDETERMINATE AGE [35 ms Q WAVE IN II/aVF] Compared to ECG 03/25/2025 17:27:40 Myocardial infarct finding now present T-wave abnormality still present Electronically Signed On 03-28-2025 09:34:25 CDT by Kai Duff M.D. [email or web address] [id number]
[2025-03-25 21:29] LABS: Lactate (Lactic Acid level) 4.5 mmol/L (0.5-2.2)
[2025-03-25] MEDS: methylPREDNISolone sod succ 40 mg/mL INJ IVP (21:45)
[2025-03-26] VITALS (14 sets, daily range): BP systolic 116–159; BP diastolic 55–90; PULSE 96–113; RESP 17–29; TEMP 36.4–36.6; O2SAT 91–96
[2025-03-26 00:20] LABS: Partial Thromboplastin Time 194.8 SECONDS (23.9-36.7)
[2025-03-26 02:39] LABS: Hematocrit 38.4 % (37-53); Hemoglobin 11.70 g/dL (11.27-16.99); Mean Corpuscular HGB Conc 30.5 g/dL (30-55); Mean Corpuscular Hemoglobin 27.3 pg (27-33); Mean Corpuscular Volume 89.7 fl (82-101); Nucleated Red Blood Cells % 0 %; Platelet Count 274 10^3/cmm (157-399); Red Blood Count 4.28 10^6/uL (3.85-5.65); White Blood Count 15.70 10^3/uL (3.29-11.43)
[2025-03-26 02:51] LABS: Partial Thromboplastin Time 45.4 SECONDS (23.9-36.7)
[2025-03-26 03:03] LABS: Alanine Aminotransferase 34 U/L (0-41); Albumin Level 3.4 g/dL (3.5-5.2); Alkaline Phosphatase 55 U/L (40-130); Anion Gap 13.3 (5-19); Aspartate Amino Transferase 16 U/L (0-40); Blood Urea Nitrogen 14 mg/dL (8-23); Calcium 9.3 mg/dL (8.5-10.5); Carbon Dioxide 33 mmol/L (22-29); Chloride 94 mmol/L (98-107); Creatinine Clr Calc Pharmacy 192.5289; Globulin 3.2 g/dL (1.3-4.6); Glucose 246 mg/dL (65-115); Magnesium 1.6 mg/dL (1.7-2.3); Osmolality Calculated 291 mOsm/kg (285-295); Potassium 4.3 mmol/L (3.5-5.1); Sodium 136 mmol/L (136-145); Total Protein 6.6 g/dL (6.6-8.7)
[2025-03-26] MEDS: heparin 5,000 unit/mL INJ 1 mL IVP (03:19)
[2025-03-26] MEDS: heparin drip 25,000 UNIT/500 ML PREMIX 124.54 UNIT IV (03:20)
[2025-03-26] MEDS: methylPREDNISolone sod succ 40 mg/mL INJ IVP ×3 (05:06→21:12)
--- NOTE | 2025-03-26 08:31 | PC.NURSE ---
Pt's heparin drip was infused and nurse went to hang another bag but pt refused a new heparin bag stated he was done with heparin. Dr notified.
--- NOTE | 2025-03-26 09:10 | PM.CONSULT ---
Providers/Reason For Consult Consulting Physician/Specialty*: Dr Duff, cardiology Reason for Consult*: NSTEMI Requesting Physician: Latasha Schaeffer MD Attending Physician: Latasha Schaeffer MD Primary Care Provider: Shaniqua Carey MD History of Present Illness History of Present Illness Walter Medina is a 59 year old male with past medical history of reactive airway disease, COPD, hypertension, type 2 diabetes, dyslipidemia, RADHA requiring at home ventilator per recent sleep study in December. He presented to the emergency room yesterday with shortness of breath. Per discussion with patient he was wanting to be placed on the noninvasive ventilator while he was here to get some rest from increased work of breathing. He received steroid and breathing treatments which helped somewhat with his subjective of shortness of breath. Troponin was elevated: 132-> 146-> 120, likely due to demand ischemia. BNP 659, down from 7000 in August. He was started on heparin infusion, D-dimer elevated: CTA of the chest ruled out PE, venous duplex ruled out DVT. He had a coronary angiogram 3 months ago at [facility], per patient report was a clean cath. He has not had any chest pain this admission. Review of Systems Const: Denies: fever(s), chills, change in weight, fatigue or diaphoresis Eyes: Denies: change in vision ENMT: Denies: epistaxis Card: Reports: dyspnea on exertion; Denies: chest pain, palpitations, irregular heart rhythm, edema, syncope, pre-syncope or leg pain with exertion Resp: Denies: dyspnea, productive cough or wheezing GI: Denies: nausea, vomiting, hematemesis, hematochezia or melena : Denies: hematuria Musc: Denies: extremity swelling Kwaku/Lymph: Denies: easy bruising or easy bleeding Medications/Allergies Home Medications ?Medication ?Instructions ?Recorded ?Confirmed ?Last Taken ?Type albuterol sulfate 2.5 mg/3 mL 2.5 mg inhalation Q4H PRN Cough 06/06/24 03/25/25 09/07/24 History (0.083 %) solution for nebulization and wheezing albuterol sulfate 90 mcg/actuation 1 puff inhalation Q6H PRN 06/06/24 03/25/25 Unknown History aerosol inhaler Shortness Of Breath atorvastatin 20 mg tablet 20 mg PO BEDTIME 06/06/24 03/25/25 03/24/25 History dulaglutide 1.5 mg/0.5 mL 1.5 mg SUBCUT Q7D 06/06/24 03/25/25 03/24/25 History subcutaneous pen injector (Trulicity) fluticasone 250 mcg-salmeterol 50 1 inh inhalation BID 06/06/24 03/25/25 03/25/25 History mcg/dose blistr powdr for inhalation fluticasone propionate 50 2 spray intranasal DAILY 06/06/24 03/25/25 03/25/25 History mcg/actuation nasal spray,suspension gabapentin 300 mg capsule 300 mg PO TID 06/06/24 03/25/25 03/25/25 History glyburide 5 mg tablet 50 mg PO DAILY 06/06/24 03/25/25 03/25/25 History lisinopril 10 mg tablet 10 mg PO DAILY 06/06/24 03/25/25 03/25/25 History Held on 09/12/24. Instructions: Resume on 09/26/24. sildenafil 100 mg tablet See Rx Instructions .Route .COMPLEX 06/06/24 03/25/25 Unknown History tiotropium bromide 1.25 2 inh inhalation DAILY 06/06/24 03/25/25 03/24/25 History mcg/actuation mist for inhalation (Spiriva Respimat) aspirin 81 mg tablet,delayed 81 mg PO QAM 03/25/25 03/25/25 03/25/25 History release hydrochlorothiazide 25 mg tablet 25 mg PO DAILY 03/25/25 03/25/25 03/25/25 History metformin 1,000 mg tablet 1,000 mg PO BID 03/25/25 03/25/25 03/25/25 History Allergies Allergy/AdvReac Type Severity Reaction Status Date / Time No Known Allergies Allergy Verified 03/25/25 12:28 Current Medications Generic Name Dose Route Start Last Admin Trade Name Freq PRN Reason Stop Dose Admin Albuterol/Ipratropium 3 ml 03/25/25 16:00 03/26/25 08:10 Ipratropium-Albuterol 3 Ml Neb INHALATION 3 ml QID.RESPIRATORY PETER Administration Atorvastatin Calcium 80 mg 03/25/25 21:00 03/25/25 21:44 Atorvastatin 40 Mg Tablet PO 80 mg BEDTIME PETER Administration Azithromycin 500 mg 03/25/25 16:00 03/25/25 17:33 Azithromycin 250 Mg Tablet PO 500 mg DAILY PETER Administration Protocol Ceftriaxone Sodium 1,000 mg 03/25/25 16:00 03/25/25 17:32 Ceftriaxone 1,000 Mg Sdv IVP 1,000 mg Q24H PETER Administration Protocol Gabapentin 300 mg 03/25/25 21:00 03/25/25 21:44 Gabapentin 300 Mg Capsule PO 300 mg TID PETER Administration Heparin Sodium (Porcine) 0 unit 03/25/25 16:41 03/26/25 03:19 Heparin 5,000 Unit/Ml Inj 1 Ml IVP 2,800 unit PRN PRN Administration Heparin Weight Based Protocol -Subsequent Bolus Protocol Heparin Sodium/Sodium Chloride 25,000 unit in 500 mls @ 0 mls/hr 03/25/25 16:41 03/26/25 08:30 Heparin Drip IV Infused CONT PETER Titration Protocol Per Protocol Insulin Human Lispro 0 unit 03/25/25 18:00 03/25/25 21:44 Insulin Lispro 100 Unit/1 Ml SUBCUT 12 unit WM&BEDTIME PETER Administration Protocol Methylprednisolone Sodium Succinate 40 mg 03/25/25 22:00 03/26/25 05:06 Methylprednisolone Sod Succ 40 Mg/Ml Inj IVP 40 mg Q8H PETER Administration PFSH Acute PFSH: Medical History On home oxygen therapy Sleep apnea Morbidly obese HTN (hypertension) Type 2 diabetes mellitus History of type 2 diabetes mellitus History of morbid obesity History of COPD Surgical History History of appendectomy Family History Mother Diabetes Social History Smoking and tobacco/nicotine status: former use of tobacco/nicotine Alcohol intake: never Substance/Drug Use: never Vitals/I&O/Wt Last Vital Signs Temp 97.7 F 03/26/25 07:56 Pulse 101 H 03/26/25 08:13 Resp 18 03/26/25 08:10 BP 159/90 03/26/25 07:56 Pulse Ox 94 03/26/25 08:13 O2 Del Method Nasal Cannula 03/26/25 08:13 O2 Flow Rate 3 03/26/25 08:13 03/25/25 03/26/25 03/26/25 22:59 06:59 14:59 Intake Total 183 / 280.033 97.033 / 280.033 860 / 860 Output Total 1100 / 1400 300 / 1400 Balance -917 / -1119.967 -202.967 / -1119.967 860 / 860 Weight last 48 hrs Weight 322 lb Weight 324 lb Weight 312 lb Physical Exam Const: COMMON NORMALS: no acute distress and patient oriented x3 GENERAL APPEARANCE: cooperative and comfortable ORIENTATION/CONSCIOUSNESS: Yes awake, Yes oriented to person, Yes oriented to place and Yes oriented to time Chest: COMMONS NORMALS: normal inspection of the chest and normal palpation of entire chest wall CHEST: Yes Symmetrical chest wall rise Resp: COMMON NORMALS: normal respiratory effort, No retractions, No use of accessory muscles and clear to auscultation bilaterally EFFORT & INSPECTION: Yes symmetric chest movement AUSCULTATION: clear to auscultation bilaterally Cardio: COMMON NORMALS: regular rate, regular rhythm, S1 normal heart sound present, S2 normal heart sound present, No gallops present (Cardio), No clicks present (Cardio), No murmurs present (Cardio) and No rub (Cardio) RATE: regular rate RHYTHM: regular rhythm HEART SOUNDS: S1 normal heart sound present and S2 normal heart sound present PERIPHERAL PULSES: radial pulses present Extremity: COMMON NORMALS: no pedal edema Neuro: COMMON NORMALS: patient oriented x3 and moves all extremities SENSORIUM/ORIENTATION: Yes oriented to person, Yes oriented to place and Yes oriented to time Data 03/26/25 02:30 03/26/25 02:30 A&P Assessment and plan (1) Non-STEMI (non-ST elevated myocardial infarction): (2) HTN (hypertension): (3) Dyslipidemia: (4) Type 2 diabetes mellitus: (5) Morbidly obese: (6) Acute exacerbation of chronic obstructive airways disease: Plan He has had a recent coronary angiogram that did not demonstrate significant stenosis. Troponin elevation likely due to demand from COPD exacerbation. Do not recommend any further testing at this time other than perhaps an echocardiogram, but can contact [place] to see if he had an echocardiogram recently there. He is also planning to go home today. PDMP PDMP Reviewed: Not Reviewed Coding Level of Care Code Acute Code for Chg Fwd Diagnoses Non-STEMI (non-ST elevated myocardial infarction) I21.4 HTN (hypertension) I10 Dyslipidemia E78.5 Type 2 diabetes mellitus without complication, with long-term current use of insulin E11.9; Z79.4 Diabetes mellitus assisted insulin use: with termite renewal inspector use Diabetes mellitus complication status: without complication Morbidly obese E66.01 Acute exacerbation of chronic obstructive airways disease J44.1
[2025-03-26] MEDS: magnesium sulfate premix 4 GM/100 ML PREMIX IV (09:24)
[2025-03-26 09:47] LABS: Lactic Sepsis W/Reflex 1.6 mmol/L (0.5-2.2)
--- OUTSIDE RECORDS SUMMARY | 2025-03-26 15:10 | XMS_ITS | Patient Health Record ---
Author Organization [facility] Address [address] [place] [address] Care Team Providers Care Network Technical Analyst Name Role Phone Shaniqua Carey MD Primary Care Provider UnavailFlorentino Dickerson Unavailable [phone] Lori Palomino Unavailable Unavailabl Arnol Hollins Unavailable [phone] Allergies No Known Allergies Results Component Value Reference Range Notes zzzCT Outside CD Reviewed date:07/25/2024 03:38:50 PM Interpretation: Performing Lab: Notes/Report: [id number]=iSite Prothrombin Time 46441 (Not yet reviewed by provider) Interpretation: Performing Lab: Notes/Report: Diagnosis Description: Abnormal result of other cardiovascular function study Diagnosis Description: Non-ST elevation (NSTEMI) myocardial infarction ProTime 11.0 9.1-11.9 SEC Normal Range: 9 .1-11.9 INR 1.04 .90-1.20 Therapeutic Range: 2.0-3.0 Therapaeutic Range for heart valve replacement: 2.5-3.50 Partial Thromboplastin Time 70352 (Not yet reviewed by provider) Interpretation: Performing Lab: Notes/Report: Diagnosis Description: Abnormal result of other cardiovascular function study Diagnosis Description: Non-ST elevation (NSTEMI) myocardial infarction PTT 25.8 22.6-31.8 SEC Therapeutic Range: 60-100. Critical Value Starting at > 100. [place] Diff 39[address], 8 5007 (Not yet reviewed by provider) [...] [place] Review Auto Diff Conf WBC Auto Diff--71222 (Not ye t reviewed by provider) Interpretation: Performing Lab: Notes/Report: Added by Discern Rules Neutro Auto% 61.7 40.0-70.0 % Lymph Auto% 25.5 22.0-44.0 % Hardee Auto% 7.7 3.0-7.0 % Eos Auto% 3.7 2.0-4.0 % Baso Auto% 1.1 0.0-1.0 % NRBC% .00 .00-.20 /100 int act WBC's Neutro Abs 5.40 .80-7.70 Absolute Neutrophil Count 5400 Lymph Abs 2.23 .10-4.10 Hardee Abs .67 .20-1.00 Eos Abs .32 .00-.40 Baso Abs .10 .00-.20 NRBC# .00 .00-.20 Imm Gran Abs .03 .00-.10 Imm Gran% .3 .0-.4 % zzzHeart Cath Lt poss PTCA ( Not yet reviewed by provider) Interpretation: Performing Lab: Notes/Report: See Below For Report This report was dictated outside of the [employer] system. Read See Below For Report Schedule Confirmation (Not y et reviewed by provider) Interpretation: Performing Lab: Notes/Report: Heart Cath Lt poss PTCA zzzHeart Cath Lt poss PTCA ( Not yet reviewed by provider) Interpretation: Performing Lab: Notes/Report: [id number]=iSite Lipid Panel Reflex DLDL 0720 4, 41276 (Not yet reviewed by provider) Interpretation: Performing [...] Trig is >400 mg/dl. See DLDL result. Basic Metabolic Panel (BMP) 77007 (Not yet reviewed by provider) Interpretation: Performing Lab: Notes/Report: Diagnosis Description: Abnormal result of other cardiovascular function study Diagnosis Description: Non-ST elevation (NSTEMI) myocardial infarction Sodium 136 136-145 MMOL/L Potassium 4.0 3.5-5.1 MMOL/L Chloride 97 98-107 MMOL/L CO2 33.2 20.0-31.0 MMOL/L Glucose Serum 130 71-110 MG/DL Testing perfor med at [facility], [address] [place] [address] [place] [address]. CLIA ID#: [id number] BUN 14 7-21 MG/DL Creat .64 .57-1.17 MG/DL E-cypweb-b-benzoquinone imine (NAPQI) is a metabolite of acetaminophen, [...] 8.7-10.4 MG/DL Osmo Serum,Calculated 284 280-300 MOSM/KG zzzCT Outside CD Reviewed date:07/23/2024 05:11:24 PM Interpretation: Performing Lab: Notes/Report: [email or web address]=[id number]=iSite Reason For Referral Reason Multiple Nodule of [...] Provider Speciality Nurse Prac sigridr Referred Organization [facility] Referred Provider Arnol Stevenson Referred Address [address] [place] [address] [address]ZA,[place], [place],[address], Referred Provider Specialty Pulmonary Di [facility] General Notes Rand Harris 024 08:56:36 AM >Imaging done @ [facility] in [facility] on 05/30/24., Rand Harris 06/05/2024 08:57:31 AM >Called and spoke to nurse. She was able to find entire discharge report with CT in there. Will try and fax it to us. Is aware we need the report for scheduling., Rand Harris 06/06/2024 12:59:15 PM >06/06/24: CT Report Recieved, Rand Harris 06/06/2024 01:06:55 PM >imaging disc request faxed to [facility] radiology, Rand Harris 06/18/2024 12:56:24 PM >06/18-Received DiscSteven Marie 06/18/2024 01:03:53 PM >06/18: [facility] Rand Harris 06/18/2024 04:52:30 PM [...] Provider Speciality Nurse Clara lopez Referred Organization [facility] Referred Provider Florentino Pink Referred Address [address] [place] [address],[facility],[place],[address], Referred Provider Specialty Intervention al Cardiology Referral [...] W/U Status Risk Notes Problem Essential hypertension (46660975) Essential (primary) hypertension (I10) Active confirmed Problem [id number] Abnormal chest CT (R93.89) Active confirmed Problem 023113615050464 Type 2 diabetes mellitus with hyperglycemia, without long-term current use of insulin (E11.65) Active confirmed Problem COPD - Chronic obstructive pulmonary disease (85838424) COPD (chronic obstructive pulmonary disease) (J44.9) Active confirmed Problem Dependence on supplemental oxygen (949380588714) Supplemental oxygen dependent (Z99.81) Active confirmed Problem 605212140 Chronic hypercapnic respiratory failure (J96.12) Active confirmed Problem 731605694 Stress-induced cardiomyopathy (I51.81) Active confirmed Problem 548556364 Non Q wave myocardial infarction (I21.4) Active confirmed Problem 698823246 Chronic hypoxic respiratory failure (J96.11) Active confirmed Vital Signs Heart Rate 96 /min 12/12/2024 Temperature 98.3 degrees Fahrenheit 07/25/2024 Respiratory Rate 20 /min 07/25/2024 Height-cm 180.34 cm 12/12/2024 Oximetry 90 % 12/12/2024 Blood pressure diastolic 70 mm Hg 12/12/2024 Weight-kg 148.33 kg 12/12/2024 Height 71 in 12/12/2024 Blood pressure systolic 112 mm Hg 12/12/2024 Weight 327 lbs 12/12/2024 BMI 45.6 kg/m2 12/12/2024 Procedures Procedure Date Ordered Date Performed Result Body Sit e Coronary Angio with Left Heart Cath 10/10/2024 N/A Encounters Encounter Location Date Provider Diagnosis [facility] [address] [place] [address] 11/08/2024 Florentino Pink [facility] [address] [place] [address] [place] [address] 07/25/2024 Arnol Stevenson Abnormal chest CT R93.89 ; Former smoker Z87.891 ; Chronic hypoxic respiratory failure J96.11 ; Chronic hypercapnic respiratory failure J96.12 and Mild persistent asthma, well controlled J45.30 [facility] [address] [place] [address], [place] [address] 10/10/2024 Florentino Pink Positive cardiac stress test R94.39 ; Stress-induced cardiomyopathy I51.81 ; Essential (primary) hypertension I10 ; Type 2 diabetes mellitus with hyperglycemia, without long-term current use of insulin E11.65 ; Non Q wave myocardial infarction I21.4 and Exertional dyspnea R06.09 [facility] [address] [place] [address], [place] [address] 12/12/2024 Florentino Pink Status post non-Q wa ve myocardial infarction I25.2 [facility] [address] [place] [address] [place] [address] 06/18/2024 Arnol Stevenson [facility] [address] [place] [address], [place] [address] 10/10/2024 Florentino Pink [facility] [address] [place] [address] 10/10/2024 Florentino Pink [facility] [address] [place] [address], [place] [address] 10/18/2024 Florentino Pink [facility] [address] [place] [address], [place] [address] 10/18/2024 Florentino Pink Assessments Encounter Date Diagnosis (ICD Code) Assessment Notes Treatment Notes Treatment Clinical Notes Section Notes 07/25/[address] (ICD-10 - R93.89) Nodules calcified. No further workup required. 07/25/2024 Former smoker (ICD-10 - Z87.891) -Patient smoked a lajp-wac-qox for 8 years. He has been abstinent for 30 years. 10/10/2024 Positive cardiac stress test (ICD-10 - R94.39) Impression: #1 non-Q wave RI: He recently presented to an outside hospital in [place] with a COPD exacerbation and pneumonia. From what he describes he had an abnormal troponin consistent with non-Q wave RI. The thought was it may have been [...] (ICD-10 - I51.81) Impression: #1 non-Q wave RI: He recently presented to an outside hospital in [place] with a COPD exacerbation and pneumonia. From what he describes he had an abnormal troponin consistent with non-Q wave RI. The thought was it may have been [...] (ICD-10 - I25.2) Impression: #1 non-Q wave RI: Recently hospitalized with pneumonia and COPD exacerbation. Apparently had a non-Q wave RI likely secondary to demand ischemia. His troponins were elevated. His echo initially implied he may had a cardiomyopathy. He had an abnormal Cardiolite stress test as well. I recent performed cardiac catheterization. This confirmed normal coronary arteries with no evidence of any obstruction. In addition ejection fraction is normal at 60%. I suspect the stress test was a false positive. Again his non-Q RI was likely secondary to demand ischemia from his pneumonia and COPD. Plan: I reassured this point he has no active cardiac issues as he has normal coronary arteries and normal LV function. I will see him back as an as-needed basis. 10/10/2024 Essential (primary) hypertension (ICD-10 - I10) Impression: #1 non-Q wave RI: He recently presented to an outside hospital in [place] with a COPD exacerbation and pneumonia. From what he describes he had an abnormal troponin consistent with non-Q wave RI. The thought was it may have been [...] (ICD-10 - E11.65) Impression: #1 non-Q wave RI: He recently presented to an outside hospital in [place] with a COPD exacerbation and pneumonia. From what he describes he had an abnormal troponin consistent with non-Q wave RI. The thought was it may have been [...] (ICD-10 - I21.4) Impression: #1 non-Q wave RI: He recently presented to an outside hospital in [place] with a COPD exacerbation and pneumonia. From what he describes he had an abnormal troponin consistent with non-Q wave RI. The thought was it may have been [...] (ICD-10 - R06.09) Impression: #1 non-Q wave RI: He recently presented to an outside hospital in [place] with a COPD exacerbation and pneumonia. From what he describes he had an abnormal troponin consistent with non-Q wave RI. The thought was it may have been [...] Test Test Name Order Date Prothrombin Time 46780 10/10/2024 Prothrombin Time 19873 11/08/2024 Basic Metabolic Panel (BMP) 45759 2024 Basic Metabolic Panel (BMP) 88825 2024 Lipid Panel Reflex DLDL 57714, 47708 Lipid Panel Reflex DLDL 98672, 28965 Partial Thromboplastin Time 85285 2024 Partial Thromboplastin Time 00096 2024 CBC Reflex Man Diff 09427, 76972 025 CBC Ref[place] Man Diff 39166, 14834 025 Electrocardiogram 12 Lead Tracing-20610 10/10/2024 WBC Auto Diff--29480 11/08/2024 zzzHeart Cath Lt poss PTCA 11/08/2024 zzzHeart Cath Lt poss PTCA 11/08/2024 Electrocardiogram (EKG) - 64945 10/10/19 25 Coronary Angio with Left Heart Cath 09/26 Schedule Confirmation 11/08/2024 Insurance Providers Payer Name Payer Address Payer Phone Subscriber Number Group Number Insured Name Patient Relationship to Insured Coverage Start Date Coverage End Date [employer] Medicare Replacement [address] [address] [place] [address] [id number] HUSTON Self - patient is the insured Medical (General) History Medical History History ICD Code Measles, Mumps, chicken pox pneumonia arthritis Bladder Infections Migraine Headache Diabetess Hernia Back Trouble HTN Hemorrhoids Asthma Infectious Hardee Bronchitis Covid pos history Covid vaccine - no Surgical History Surgery Date(Month/Year) [facility] by Dr. Pink 11.08.2024 Appendectomy-WP 2012 Hernia-WP 1971 Hospitalization History Reason Date(Month/Year) [facility]: IMPRESSION: 1. Normal c oronary arteries 2. normal LV function ejection fraction 60% 3. suspect false positive Cardiolite stress test RECOMMENDATIONS/PLAN: 1. Aggressive medical management and risk factor modification. 11.08.2024 Pneumonia X2
--- OUTSIDE RECORDS SUMMARY | 2025-03-26 15:10 | XMS_ITS | Patient Health Record ---
Author Organization [facility] Address [address] [place] [address] Care Team Providers Care Gray Mixing Operator Name Role Phone Unknown, Unknown Primary Care Provider Unavailab Lopez Castillo Unavailable [phone] Allergies No Known Allergies Reason For Referral [...] Encounters Encounter Location Date Provider Diagnosis [facility] [address] [place] [address] 11/26/2024 Lopez Reyes [facility] [address] [place] [address] 03/28/[address] [facility] [facility] [address] [place] [address] 06/11/2024 Lopez Reyes [facility] [address] [place] [address] 08/07/2024 Lopez Reyes [facility] [address] [place] [address] 08/30/2024 Lopez Reyes [facility] [address] [place] [address] 10/09/[address] [facility] [address] [place] [address] 11/20/2024 Lopez Reyes [facility] [address] [place] [address] 08/31/2024 Lopez Reyes [facility] [address] [place] [address] 10/10/2024 Lopez Reyes Plan Of Treatment No Information Insurance Providers Payer Name Payer Address Payer Phone Subscriber Number Group Number Insured Name Patient Relationship to Insured Coverage Start Date Coverage End Date [employer] OFFICE [address] [place] [phone] [id number] YAO MEDINA Self - patient is the insured Medical (General) History Medical History History ICD Code Asthma Diabetes High Blood Pressure Sinus Trouble COPD Oxygen Tank Hospitalization History Reason Date(Month/Year) Pnemonia 05/2024
--- OUTSIDE RECORDS SUMMARY | 2025-03-26 15:10 | XMS_ITS | Patient Health Record ---
Author Organization [facility] Address [address] [place], [place] [id number] Care Team Providers Care Call Worker Name Role Phone Luis Bonilla MD Primary Care Provider Page Escobar MD, [facility] [place] [phone] Reason For Referral No Information Medications Medication [...] W/U Status Risk Notes Problem Solitary sacroiliitis (956079656) Sacroiliitis, not elsewhere classified (M46.1) Active confirmed Problem Low back pain (725223817) Low back pain (M54.5) Active confirmed Problem Lumbosacral spondylosis without myelopathy (75590367) Spondylosis without myelopathy or radiculopathy, lumbar region (M47.816) Active confirmed Problem Anxiety disorder (444449215) Other specified anxiety disorders (F41.8) Active confirmed Problem Obstructive sleep apnea syndrome (64166862) Obstructive sleep apnea (adult) (pediatric) (G47.33) Active confirmed Problem Radiculopathy due to lumbar intervertebral disc disorder (990161115794808) Intervertebral disc disorders with radiculopathy, lumbar region (M51.16) Active confirmed Problem Long-term current use of drug therapy (772634253) Other fci (current) drug therapy (Z79.899) Active confirmed Plan Of Treatment No Information Insurance Providers Payer Name Payer Address Payer Phone Subscriber Number Group Number Insured Name Patient Relationship to Insured Coverage Start Date Coverage End Date WPS Medicare Part B Claims Department [address] [address] [place] [address] [id number] Walter Medina Self - patient is the insured [place] [address] [place] [address] [phone] [id number] Walter Medina Self - patient is the insured Medical (General) History Medical History History ICD Code Chronic obstructive pulmonary disease Chronic pain Chronic low back pain 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
--- OUTSIDE RECORDS SUMMARY | 2025-03-26 15:11 | XMS_ITS | Data Portability ---
Author Organization [facility] Alfonso Lopez [facility] [address] [facility], [facility] Address [address] [facility] [address] [place] [address] Care Team Providers Care Power Cutting Machine Operator Name Role Phone KUNAL SAM Primary Care Provider [phone] Assessment No assessment recorded. Plan of Treatment Reminders Order Date Submit Date Provider Last Modified By Organization Details Last Modified Time Details Appointments None recorded. Lab None recorded. Referral ENT surgery referral 2022 023 [email or web address] Cb Orozco MD, [address], [place], [address], 4 15:53:27 Procedures None recorded. Surgeries None recorded. Imaging None recorded. Medication Orders amoxicillin 875 mg-potassiu m clavulanate 125 mg tablet 2024 025 DARRELL [facility], [address], [place], [address], 5 15:25:38 amoxicillin 875 mg-potassiu m clavulanate 125 mg tablet 2022 023 [email or web address] [facility], [address], [place], [address], 5 15:04:13 ceftriaxone 1 gram solution for [...] ; acuity set as *; Not Available [facility] 3 03:14:48 Asthma [id number] Completed 201608/30/2017 asthma - Status is Inactive ; 08/30/20 17 2:02PM by Alexandria Burgess CMT, Annotati on/Adden dum; Promoted ; acuity set as *; Not Available [facility] 3 03:14:50 Problem Notes None recorded. Procedures Surgical History Date Name Laterality Status Provider Name and Address Organization Details Recorded Time Appendectomy completed [facility] 03/17/2025 15:08:59 Hernia Repair completed [facility] 03/17/2025 15:09:04 Imaging Results None recorded. Procedure Notes None recorded. Medical Equipment None Reported. Allergies Allergen ID Allergen Name Allergen Category Reaction Reaction Severity Criticality Documentation Date Start Date Code Code System Note Provider Name and Address Organization Details Recorded Time 56785 cow milk allergeni c extract food,medi cation other Not available Not available 04/23/2023 54972 5 RxNorm React ion: Diffi culty breat rolando; anthony late, dust, pet dande r; Comme nt: Recor ded 04/23 1:56P M by Ana ramachandran LPN, Offic e Visit ; Promo nancy; Signi flaco ce: *; ; Hazen [facility]oc[facility] 15:06:50 Medications Name Sig Start Date [...] Updated DateTime 5 180.34 cm 44.1 kg/m2 063947. 19 g 86 % 86 % 3 L/min 107 /min 16 /min 98 [degF] 138 mm[Hg] 80 mm[Hg] Ileana Bui [facility] 5 15:11:21 Date Recorded Body height Body mass index (BMI) Body weight Oxygen saturation Oxygen saturation in Arterial blood by Pulse oximetry Inhaled oxygen flow rate Heart rate Body temperature Systolic blood pressure Diastolic blood pressure Provider Name and Address Organization Details Last Updated DateTime 3 180.34 cm 48.3 kg/m2 100195. 96 g 90 % 90 % 5 L/min 108 /min 96.4 [degF] 128 mm[Hg] 78 mm[Hg] Nemo Ortiz [facility] 3 10:03:40 Social History Question Answer Notes LastModified by Organizat ion Details LastModified Time Tobacco Smoking Status Current Every Day Smoker Ileana Bui terrance [facility] 03/17/2025 15:08:43 What Was The Date Of Your Most Recent Tobacco Screening? 03/17/2025 [email or web address] Information not available 03/17/2025 Sex: Unknown Functional Status None recorded. Mental Status None recorded. Family History Nothing Reported. Medical History No medical history recorded. Immunizations Vaccine Type Date Status Note Provider Nam e and Address Organization Details Recorded Time tetanus toxoid, unspecified formulation 8 completed Not Available [facility] 04/23/2023 02:39:35 Past Encounters Encounter ID Performer Location Encounter Start Date Encounter Closed Date Diagnosis/Indication Diagnosis SNOMED-CT Code Diagnosis ICD10 Code Diagnosis Note [id number] RADHA VERAS PA-C [facility] ([facility]) [address] [place] [phone] 5 09/20/2023 09:40:28 09/20/2023 10:55:05 Cellulitis of face [id number] L03.211 appears to have a connection from sinus to lacrimal duct. referal to Dr. Orozco office [id number] WANDER ALEJANDRO [facility] ([facility]) [address] [place] [phone] 03/17/2025 15:01:24 03/18/2025 12:01:33 Oral infection [id number] K12.2 Complete antibiotic s. May use otc [...] (MEDICARE REPLACEMENT/A DVANTAGE - PPO) Walter Medina [id number] Walter Medina Notes Date Note Type Note [...] bilaterally;sinus pain cheek RADHA VERAS PA-C [address] [place], [address], [facility] 09/20/2023 10:21:18 03/17/2025 text/html walk in [...] the pain. Denies fever. WANDER ALEJANDRO [address] [place], [address], [facility] 03/17/2025 15:27:51
[2025-03-26] MEDS: fluticasone nasal spray 16gm Btl 1 SPRAY NASAL (15:22)
[2025-03-26] MEDS: cefTRIAXone 1,000 mg SDV 1000 MG IVP (15:22)
--- NOTE | 2025-03-26 17:13 | PM.PN ---
Subjective Subjective: Seen this morning. Patient is quite unhappy about starting heparin drip on him. I tried to explain to him several times that his delta troponin was elevated at 2 hours status for ER doctor started heparin drip. Apparently 6-hour troponin was 120 which showed a delta of -11. Cardiology was consulted. Lactic acidosis on admission yesterday 4.7 which is trended down and now is normalized at 1.6. He states his breathing has slightly improved compared to before. Leukocytosis WBC 15,000 today. Patient on ceftriaxone azithromycin at this time Patient is requesting Mucinex and Flonase. He states he was supposed to get a external ventilator from [facility] which she is currently working on with [employer]. That is yet to be approved. He is requesting to wear a BiPAP overnight for respiratory support. Vitals/I&O/Wt Last Vital Signs Temp 97.7 F 03/26/25 07:56 Pulse 107 H 03/26/25 15:41 Resp 18 03/26/25 15:05 BP 124/72 03/26/25 15:41 Pulse Ox 93 03/26/25 15:41 O2 Del Method Nasal Cannula 03/26/25 15:41 O2 Flow Rate 3 03/26/25 15:41 03/26/25 03/26/25 03/26/25 06:59 14:59 22:59 Intake Total 97.033 / 901.064 3794 / 1440 Output Total 300 / 1400 Balance -202.967 / -4018.315 9502 / 1440 Weight last 48 hrs Weight 146.057 kg Weight 146.964 kg Weight 141.521 kg Physical Exam Narrative: General: Alert oriented x3, patient seen laying in bed appearing comfortable HEENT: Normocephalic, atraumatic, EOMI, no conversational dyspnea. Cardio: Regular rate rhythm, normal S1-S2, Respiratory: Decreased bilateral air entry at bases, mild rhonchi present. Wheezing diffuse upper bilateral lung bales that was present yesterday is almost resolved. GI: Abdomen soft, nontender, bowel sounds + Behavior: Appropriate and cooperative Extremities: No edema bilateral lower extremities Data 03/26/25 02:30 03/26/25 02:30 A&P Assessment and plan (1) Acute exacerbation of chronic obstructive airways disease: (2) HTN (hypertension): (3) Non-STEMI (non-ST elevated myocardial infarction): (4) Elevated troponin: (5) Dyslipidemia: (6) Type 2 diabetes mellitus: Plan #COPD exacerbation #NSTEMI #Shortness of breath on exertion secondary to above #Hypertension #Diabetes mellitus ? Continue ceftriaxone azithromycin ? Check D-dimer ? Initial troponin 132, await 2nd and 3rd troponin. If delta positive we will place on heparin drip ? I would like to rule out PE we will check CTA chest with contrast PE protocol ? BNP 659. Possibly falsely low secondary to morbid obesity. Patient is 141 kg. ? Chest x-ray does not show acute pneumonia ? Check echocardiogram to rule out wall motion abnormalities -Solu-Medrol 40 every 8 hours ? Check sputum Gram stain culture ? Check procalcitonin ? Check lactic acid ? Check TSH - DuoNeb every 6 hours scheduled - continue aspirin, plavix, atovastatin - Consult cardiology ? Patient was placed on heparin drip by ER. Delta troponin +15 at 2 hours. Will await 6-hour troponin ? Discussed with slab miller operator over the phone.. Cardiology consulted. ? Patient does have elevated troponin however I do not believe his issues are secondary to cardiac origin. ? I believe he has a COPD exacerbation and his shortness of breath is of pulmonary etiology. ? Check respiratory viral panel full code dvt prophylaxis on heparin ggt 03/26/2025 Continue Solu-Medrol 40 every 8 hours. he will need prednisone taper at discharge Continue ceftriaxone azithromycin complete 7-day course. Sputum culture Gram stain pending Lactic acid has normalized Cardiology consulted. No further testing or recommendations made at this point. I will stop aspirin and Plavix. 6-hour troponin had -11 delta. No longer needs heparin drip. Order BiPAP for the nighttime Order Mucinex and Flonase as per patient request. He takes it at home. Continue to hold lisinopril at this time. Continue DuoNeb every 6 hours scheduled. Is on 3 L nasal cannula at this time which is consistent with his baseline. Correction to note from yesterday. Patient states that he takes 6 L on exertion and not 9. He states he told me 9 L yesterday however it is actually 6 L. Will switch to DVT prophylaxis dose heparin. PDMP PDMP Reviewed: Not Reviewed Attestations Medical Necessity Statement*: Observation admission. Will likely discharge tomorrow if shows continued clinical improvement. Diagnoses Acute exacerbation of chronic obstructive airways disease J44.1 HTN (hypertension) I10 Non-STEMI (non-ST elevated myocardial infarction) I21.4 Elevated troponin R79.89 Dyslipidemia E78.5 Type 2 diabetes mellitus without complication, with long-term current use of insulin E11.9; Z79.4 Diabetes mellitus termite exterminator insulin use: with termite exterminator use Diabetes mellitus complication status: without complication
[2025-03-26 21:03] LABS: Estmated Average Glucose 134; Hemoglobin A1C 6.3 % (4.0-6.0)
[2025-03-27 02:25] VITALS: PULSE 90; RESP 20; O2SAT 94
[2025-03-27 03:46] VITALS: BP 143/88; PULSE 85; RESP 17; TEMP 36.7; O2SAT 95
[2025-03-27] MEDS: methylPREDNISolone sod succ 40 mg/mL INJ IVP (06:35)
[2025-03-27 07:14] VITALS: PULSE 85; RESP 18; O2SAT 94
[2025-03-27 07:59] VITALS: BP 159/91; PULSE 92; RESP 18; TEMP 36.5; O2SAT 97
[2025-03-27 08:50] VITALS: O2SAT 87; O2SAT 92
--- NOTE | 2025-03-27 09:08 | PM.DCS ---
Discharge Providers Date of Admission: 03/25/25 16:22 Date of Discharge: March 27, 2025 Attending Provider at Admission: Latasha Schaeffer MD Attending Provider at Discharge: Latasha Schaeffer MD Primary Care Provider: Shaniqua Carey MD Diagnoses at Discharge Discharge Diagnosis (1) Acute exacerbation of chronic obstructive airways disease: Status: Acute (2) HTN (hypertension): Status: Acute (3) Non-STEMI (non-ST elevated myocardial infarction): Status: Acute (4) Elevated troponin: Status: Acute (5) Dyslipidemia: Status: Acute (6) Type 2 diabetes mellitus: Status: Acute Qualifiers: Diabetes mellitus complication status: without complication Diabetes mellitus supervisor train operations insulin use: with longterm use Qualified Code(s): E11.9 - Type 2 diabetes mellitus without complications; Z79.4 - alf (current) use of insulin Reason for Visit Reason for Visit: sob, on 3lpm Hospital Course Hospital Course He was admitted for COPD exacerbation. Given steroids and sent home with prednisone taper. Also given cefdinir azithromycin for another 4 days to complete course. CTA chest ruled out PE venous Dopplers ruled out DVT. Patient did have a questionable NSTEMI however it was type II TN demand ischemia. He did briefly receive heparin drip however that was later discontinued after he was seen by cardiology. Patient had a recent coronary angiogram that [facility] in November which did not show any blockages as per the patient. We have requested records from [facility] however have not received them yet. Patient has not had any chest pain. Home oxygen evaluation was done at discharge and he is back to his baseline home oxygen of 3 L at rest and 6 L on exertion. He will be discharged home in stable condition today. Physical Exam Narrative: General: Alert oriented x3, patient seen sitting up on edge of bed appearing comfortable. HEENT: Normocephalic, atraumatic, EOMI, Cardio: Regular rate rhythm, normal S1-S2, Respiratory: Decreased bilateral air entry at bases, clear to auscultation bilaterally no wheezes no rhonchi no crackles at this time. GI: Abdomen soft, nontender, bowel sounds + Behavior: Appropriate and cooperative Extremities: No edema bilateral lower extremities Discharge Data Studies Completed and Pending Completed Studies During Hospitalization Category Date Time Status CTA chest [CT angio chest PE protcl [id number]] Stat Cat Scan 03/25/25 16:26 Completed XR chest 1V portable [id number] Stat Exams 03/25/25 12:25 [place] [id number] Routine Ultrasound 03/25/25 16:44 Completed Pending at discharge Category Date Time Status Basic Metabolic Panel AM LABS Lab 03/27/25 04:00 Ordered Complete Blood Count w/Auto AM LABS Lab 03/27/25 04:00 Ordered Magnesium AM LABS Lab 03/27/25 04:00 Ordered Sputum Culture and Gram Stain Stat Lab 03/25/25 15:47 Uncollected Radiology Impressions Chest X-Ray 03/25/25 12:25 IMPRESSION: 1. Unchanged moderate elevation of the left hemidiaphragm. 2. Unchanged small amounts of scarring, atelectasis, and/or pneumonitis in both lung bases. Chest CTA 03/25/25 16:26 IMPRESSION: 1. No new pulmonary nodules or masses. 2. Numerous bilateral pulmonary nodules are again demonstrated, some of which are calcified. These appear to be similar in size, number, distribution and appearance to the prior examination dated 09/07/2024 measuring up to 7 mm. For patients at low risk (minimal or absent history of smoking and of other known risk factors), recommend CT Chest at 3-6 months, then consider CT Chest at 18-24 months. For patients at high risk (history of smoking or of other known risk factors), recommend CT Chest at 3-6 months, then CT Chest at 18-24 months. (Reference: Randolph) References: Randolph Trejo, et al. Guidelines for Management of Incidental Pulmonary Nodules Detected on CT Images: From the Fleischner Society 2017. Radiology. 2017;284(1):228-243. Laboratory Results WBC 15.70 10^3/uL (3.29-11.43) H 03/26/25 02:30 Corrected WBC Cancelled 03/25/25 12:42 RBC 4.28 10^6/uL (3.85-5.65) 03/26/25 02:30 Hgb 11.70 g/dL (11.27-16.99) 03/26/25 02:30 Hct 38.4 % (37-53) 03/26/25 02:30 MCV 89.7 fl (82-101) 03/26/25 02:30 MCH 27.3 pg (27-33) 03/26/25 02:30 MCHC 30.5 g/dL (30-55) 03/26/25 02:30 RDW 13.2 % (12.1-15.1) 03/26/25 02:30 Plt Count 274 10^3/cmm (157-399) 03/26/25 02:30 MPV 9.5 fL (7.4-10.4) 03/26/25 02:30 Gran % Cancelled 03/25/25 12:42 Neut % (Auto) 91.2 % 03/26/25 02:30 Lymph % (Auto) 6.2 % 03/26/25 02:30 [place] % (Auto) 1.9 % 03/26/25 02:30 Eos % (Auto) 0.0 % 03/26/25 02:30 Baso % (Auto) 0.1 % 03/26/25 02:30 Neut # (Auto) 14.32 10^3/uL (1.8-7.7) H 03/26/25 02:30 Lymph # (Auto) 1.0 10^3/uL (0.8-4.8) 03/26/25 02:30 [place] # (Auto) 0.3 10^3/uL (0.2-0.9) 03/26/25 02:30 Eos # (Auto) 0.0 10^3/uL (0.0-0.8) 03/26/25 02:30 Baso # (Auto) 0.0 10^3/uL (0.0-0.1) 03/26/25 02:30 Absolute Gran (auto) Cancelled 03/25/25 12:42 Nucleated RBC % (auto) 0 % 03/26/25 02:30 Nucleated RBCs # 0.0 /100WBC 03/26/25 02:30 APTT 45.4 SECONDS (23.9-36.7) H D 03/26/25 02:30 D-Dimer 1.16 ug/mLFEU (0-0.59) H 03/25/25 12:41 Specimen Type Arterial 03/25/25 12:45 Sample Site Radial, right 03/25/25 12:45 ABG pH 7.36 (7.35-7.45) 03/25/25 12:45 ABG pCO2 61.0 mmHg (35-45) H* 03/25/25 12:45 ABG pO2 60.6 mmHg (80.0-100.0) L 03/25/25 12:45 ABG HCO3 34.7 mmol/L (22-26) H 03/25/25 12:45 ABG O2 Saturation 90.1 03/25/25 12:45 ABG Base Excess 7.4 mmol/L (-2.0-2.0) H 03/25/25 12:45 Dae Test Pos 03/25/25 12:45 A-a O2 Gradient 2.0 mmHg (5-10) L 03/25/25 12:45 Hematocrit 38.7 % (42-52) L 03/25/25 12:45 Hgb O2 Saturation 88.3 % (95-100) L 03/25/25 12:45 Carboxyhemoglobin 1.0 %THgb (0.4-20.1) 03/25/25 12:45 Methemoglobin 1.0 % (0.4-1.5) 03/25/25 12:45 Total Hemoglobin 12.6 g/dL (14-18) L 03/25/25 12:45 Sodium 138.0 mmol/L (131-143) 03/25/25 12:45 Potassium 4.3 mmol/L (3.5-5.0) 03/25/25 12:45 Glucose 273.0 mg/dL (70-115) H 03/25/25 12:45 Ionized Calcium 1.3 mmol/L (1.1-1.4) 03/25/25 12:45 O2 Delivery Device Nc 03/25/25 12:45 O2 Liters/Min 3.0 % 03/25/25 12:45 Conference Center Coordinator ID [place] 03/25/25 12:45 Sodium 136 mmol/L (136-145) 03/26/25 02:30 Potassium 4.3 mmol/L (3.5-5.1) 03/26/25 02:30 Chloride 94 mmol/L (98-107) L 03/26/25 02:30 Carbon Dioxide 33 mmol/L (22-29) H 03/26/25 02:30 Anion Gap 13.3 (5-19) 03/26/25 02:30 BUN 14 mg/dL (8-23) 03/26/25 02:30 Creatinine 0.6 mg/dL (0.7-1.2) L 03/26/25 02:30 GFR Calculation 137.4 mL/min (90-130) H 03/26/25 02:30 Glucose 246 mg/dL (65-115) H 03/26/25 02:30 POC Glucose 207 mg/dL (70-110) H 03/27/25 06:13 Estimat Average Glucose 134 03/26/25 02:30 Hemoglobin A1c 6.3 % (4.0-6.0) H 03/26/25 02:30 Calculated Osmolality 291 mOsm/kg (285-295) 03/26/25 02:30 Lactic Acid 1.6 mmol/L (0.5-2.2) 03/26/25 09:16 Lactic Acid (Sepsis) 4.7 mmol/L (0.5-2.2) H* 03/25/25 18:53 Lactate 4.5 mmol/L (0.5-2.2) H* 03/25/25 20:47 Calcium 9.3 mg/dL (8.5-10.5) 03/26/25 02:30 Magnesium 1.6 mg/dL (1.7-2.3) L 03/26/25 02:30 Total Bilirubin 0.2 mg/dL (0.15-1.2) 03/26/25 02:30 AST 16 U/L (0-40) 03/26/25 02:30 ALT 34 U/L (0-41) 03/26/25 02:30 Alkaline Phosphatase 55 U/L (40-130) 03/26/25 02:30 Troponin T Baseline 132 ng/L (0-15) H* 03/25/25 12:42 Troponin T 120 Minute 146.5 ng/L (0-15) H 03/25/25 15:09 Delta Troponin T 14.5 ABS# (0-10) H* 03/25/25 15:09 Troponin T Hi Sens 6Hr 120.5 ng/L (0-15) H 03/25/25 18:53 Troponin T Hi Sens 6Hr Delta -11.5 ng/L (0-12) L 03/25/25 18:53 NT-Pro-B Natriuret Pep 661 pg/mL (0-125) H 03/25/25 15:09 Total Protein 6.6 g/dL (6.6-8.7) 03/26/25 02:30 Albumin 3.4 g/dL (3.5-5.2) L 03/26/25 02:30 Globulin 3.2 g/dL (1.3-4.6) 03/26/25 02:30 Procalcitonin 0.05 ng/mL (0-0.5) 03/25/25 15:09 TSH 1.02 uIU/mL (0.27-4.20) 03/25/25 12:41 Adenovirus (PCR) Not detected (NOT DETECT) 03/25/25 17:51 C. pneumoniae DNA (PCR) Not detected (NOT DETECT) 03/25/25 17:51 Coronavirus 229E (PCR) Not detected (NOT DETECT) 03/25/25 17:51 Human Metapneumovir PCR Not detected (NOT DETECT) 03/25/25 17:51 Influenza A (H1) PCR Not detected (NOT DETECT) 03/25/25 17:51 Influ A (H1/09) PCR Not detected (NOT DETECT) 03/25/25 17:51 Influenza A (H3) PCR Not detected (NOT DETECT) 03/25/25 17:51 Influenza Type A (PCR) Not detected (NOT DETECT) 03/25/25 17:51 Influenza Type B (PCR) Not detected (NOT DETECT) 03/25/25 17:51 M. pneumoniae (PCR) Not detected (NOT DETECT) 03/25/25 17:51 Parainfluenza 1 (PCR) Not detected (NOT DETECT) 03/25/25 17:51 Parainfluenza 2 (PCR) Not detected (NOT DETECT) 03/25/25 17:51 Parainfluenza 3 (PCR) Not detected (NOT DETECT) 03/25/25 17:51 Parainfluenza 4 (PCR) Not detected (NOT DETECT) 03/25/25 17:51 RSV Type A (PCR) Not detected (NOT DETECT) 03/25/25 17:51 RSV Type B (PCR) Not detected (NOT DETECT) 03/25/25 17:51 Entero/Rhino (PCR) Not detected (NOT DETECT) 03/25/25 17:51 SARS-CoV-2 (PCR) Not detected (NOT DETECT) 03/25/25 17:51 Vitals Last Vital Signs Temp 97.7 F 03/27/25 07:59 Pulse 92 03/27/25 07:59 Resp 18 03/27/25 07:59 BP 159/91 03/27/25 07:59 Pulse Ox 87 L 03/27/25 08:50 O2 Del Method Nasal Cannula 03/27/25 07:59 O2 Flow Rate 6 03/27/25 08:50 FiO2 32 03/27/25 02:25 Discharge Plan Discharge Patient Disposition: Home Condition: Stable Prescriptions: New azithromycin 250 mg Tablet 500 mg PO DAILY Qty: 8 0RF cefdinir 300 mg capsule 300 mg PO BID Qty: 8 0RF prednisone 10 mg tablet 10 mg PO DIRECTED Qty: 20 0RF Rx Instructions: 40 mg daily x 2 days 30 mg daily x 2 days 20 mg daily x 2 days 10 mg daily x 2 days then stop Continued metformin 1,000 mg tablet 1,000 mg PO BID hydrochlorothiazide 25 mg tablet 25 mg PO DAILY aspirin 81 mg tablet,delayed release (DR/EC) 81 mg PO QAM fluticasone propion-salmeterol 250-50 mcg/dose blister with device 1 inh INHALATION BID atorvastatin 20 mg tablet 20 mg PO BEDTIME albuterol sulfate 2.5 mg /3 mL (0.083 %) solution for nebulization 2.5 mg inhalation Q4H PRN (Reason: Cough and wheezing) glyburide 5 mg tablet 50 mg PO DAILY lisinopril 10 mg tablet 10 mg PO DAILY gabapentin 300 mg capsule 300 mg PO TID albuterol sulfate 90 mcg/actuation HFA aerosol inhaler 1 puff INHALATION Q6H PRN (Reason: Shortness Of Breath) fluticasone propionate 50 mcg/actuation spray,suspension 2 spray INTRANASAL DAILY Trulicity 1.5 mg/0.5 mL pen injector 1.5 mg SUBCUT Q7D Rx Instructions: on Tuesday Spiriva Respimat 1.25 mcg/actuation mist 2 inh INHALATION DAILY Held sildenafil 100 mg tablet See Rx Instructions .ROUTE .COMPLEX Hold Instructions: see pcp Rx Instructions: TAKE 1 TAB BY MOUTH 30 MINUTES PRIOR TO INTERCOURSE NEEDED, NO NITRATES Discharge Orders: Discharge Order (Routine); Ordered 03/27/25 Ordered By: Latasha Schaeffer Other Ambulatory Orders: DME: Oxygen (Order) Location: None Selected Ordered By: Latasha Schaeffer Referrals: [facility] [Outside] Shaniqua Carey MD [Primary Care Provider, Internal Medicine] - 04/03/25 1:30 pm Referral Note: Appointment will be with Lori Marquez Diet: Cardiac and Diabetic Discharge Activity: Resume usual activity and Oxygen as instructed Patient Instructions: Prednisone (By mouth) (Prednisone Intensol, Prednicot, Deltasone, Tana), Azithromycin (By mouth) (Zithromax, Zithromax Tri-Bill, Zithromax..., Cefdinir (By mouth) (Omnicef), Heart Attack (DC), COPD (Chronic Obstructive Pulmonary Disease) (DC), COPD Stoplight, Opioid Safety, Patient Portal & Frank Instructions Discharge Attestations Time Spent in Discharge Care*: greater than 30 min Status at Discharge: Cognitive status at discharge: cognitively intact, Behavioral status at discharge: cooperative, Quality Metrics Clinical Quality Measures [ No reported AMI, CVA or VTE this stay] Coding Level of Care Code Acute Code for [facility] Fwd Diagnoses Acute exacerbation of chronic obstructive airways disease J44.1 HTN (hypertension) I10 Non-STEMI (non-ST elevated myocardial infarction) I21.4 Elevated troponin R79.89 Dyslipidemia E78.5 Type 2 diabetes mellitus without complication, with long-term current use of insulin E11.9; Z79.4 Diabetes mellitus complication status: without complication Diabetes mellitus longterm insulin use: with supervisor train operations use
== END 2025-03-27 10:23 | disposition home or self-care (01) ==
LOC: ER 13:20 → MEDSURG 18:53 → ER IP 03-26 15:08 → MEDSURG 03-26 15:08
PROVIDERS: Emergency Medicine; Internal Medicine; Admitting Provider Internal Medicine; Emergency Provider Family Medicine; PCP Internal Medicine; Visit Provider Internal Medicine
DX: J44.1 Chronic obstructive pulmonary disease with (acute) exacerbation (principal); I21.4 Non-ST elevation (NSTEMI) myocardial infarction; I10 Essential (primary) hypertension; R79.89 Other specified abnormal findings of blood chemistry; E78.5 Hyperlipidemia, unspecified; E11.9 Type 2 diabetes mellitus without complications; Z79.4 Long term (current) use of insulin; Z79.82 Long term (current) use of aspirin; Z79.84 Long term (current) use of oral hypoglycemic drugs; Z99.81 Dependence on supplemental oxygen; G47.30 Sleep apnea, unspecified; E66.01 Morbid (severe) obesity due to excess calories; Z68.42 Body mass index [BMI] 45.0-49.9, adult; Z87.891 Personal history of nicotine dependence
CPT/HCPCS: 36415; 36416; 36600; 71045; 71275; 80051; 80053; 82330; 82805; 82962; 83036; 83605; 83735; 83880; 84145; 84443; 84484; 85025; 85378; 85730; 87486; 87581; 87633; 93005; 93970; 94640; 94660; 94760; 94762; 96372; 96374; 96375; 99285; G0378; J0696; J1644; J1815; J2919; J3475; J9999; Q0144